=== PATIENT | male | born 1960 | race American Indian/Alaskan Native ===

== ENCOUNTER 2016-11-26 08:14 | Emergency (ER) | payer MEDICAID ==
[2016-11-26 09:03] LABS: Basophils % (Auto) 0.2 % (0.0-1.8); Hematocrit 40.7 % (35.5-45.6); Hemoglobin 13.3 gm/dl (11.8-15.2); Mean Corpuscular HGB Conc 33 % (32-34); Mean Corpuscular Hemoglobin 28 pg (28-32); Mean Corpuscular Volume 86 fl (84-94); Platelet Count 214 K/mm3 (140-440); Red Blood Count 4.72 M/mm3 (3.65-5.03); White Blood Count 7.1 K/mm3 (4.5-11.0)
[2016-11-26 10:06] LABS: Bilirubin,Urine NEG (Negative); Blood,Urine SM (Negative); Ketones,Urine NEG (Negative); Leukocyte Esterase,Urine TR (Negative); Nitrite,Urine NEG (Negative); Protein,Urine <15 mg/dL mg/dL (Negative); Urobilinogen,Urine < 2.0 mg/dL (<2.0)
[2016-11-26 10:12] LABS: WBC,Urine < 1.0 /HPF (0.0-6.0)
[2016-11-26 14:12] LABS: Alanine Aminotransferase 13 units/L (7-56); Albumin 3.7 g/dL (3.9-5); Albumin/Globulin Ratio 1.1 %; Alkaline Phosphatase 85 units/L (35-129); Anion Gap 31 mmol/L; BUN/Creatinine Ratio 15.55; Bilirubin,Total < 0.20 mg/dL (0.1-1.2); Blood Urea Nitrogen 28 mg/dL (9-20); Calcium 9.2 mg/dL (8.4-10.2); Carbon Dioxide 13 mmol/L (22-30); Chloride 97.4 mmol/L (98-107); Glucose 132 mg/dL (75-100); Lipase 17 units/L (13-60); Potassium 4.2 mmol/L (3.6-5.0); Sodium 137 mmol/L (137-145)
[2016-11-26] MEDS ORDERED: MORPHINE IV ONE (17:18)
--- NOTE | 2016-11-26 17:21 | Emergency Department Report ---
ED Abdominal Pain HPI - General Chief Complaint: Abdominal Pain Stated Complaint: ABDOMINAL PAIN Time Seen by Provider: 11/26/16 17:05 Source: patient Mode of arrival: Ambulatory Limitations: No Limitations - History of Present Illness Initial Comments: Patient is a 56-year-old male with a history of Crohn's disease, hypertension, chronic kidney disease who presents to the ER complaining of abdominal pain. Patient reports he has had intermittent right lower quadrant pain for the last 2 weeks waxing and waning in intensity but for the last 2 days it has intensified and is more constant and sharp. Pt reports he went to [facility] and was given steroids and cipro. Otherwise no fevers, chills, THORNE, NVD, CP, SOB, bowel or urinary changes, travel, or sick contacts. Pt reports he takes lactulose daily for his crohns and his loose stools have not changed. Pt's GI: Dr Arias, patient has follow up appt this week - Related Data Home Medications Medication Instructions Recorded Confirmed Last Taken Ciprofloxacin HCl [Ciprofloxacin 500 mg PO QDAY 11/26/16 11/26/16 Unknown TAB] Dicyclomine [Bentyl] 10 mg PO QDAY 11/26/16 11/26/[address] [Depakote ] 500 mg PO QDAY 11/26/16 11/26/16 Unknown Famotidine [Pepcid] 20 mg PO QDAY PRN 11/26/16 11/26/16 Unknown Lactulose [Kristalose] 1 packet PO PRN PRN 11/26/16 11/26/16 Unknown Sucralfate [Carafate] 1 gm PO Q12H 11/26/16 11/26/16 Unknown Previous Rx's Medication Instructions Recorded Last Taken Type Prednisone [predniSONE 5 mg (6-Day 5 mg PO .TAPER #1 tab.ds.pk 02/01/16 Unknown Rx Pack, 21 Tabs)] amLODIPine [Norvasc] 5 mg PO DAILY #90 tab 04/28/16 05/18/16 Rx HYDROcodone/APAP 5-325 [[place] 1 - 2 each PO Q6HR PRN #10 tablet 05/19/16 Unknown Rx 5/325] Allergies Allergy/AdvReac Type Severity Reaction Status Date / Time No Known Allergies Allergy Unverified 07/29/15 11:50 ED Review of Systems ROS: Stated complaint: ABDOMINAL PAIN Other details as noted in HPI Comment: All other systems reviewed and negative ED Past Medical Hx - Past Medical History Previous Medical History?: Yes Hx Hypertension: Yes (FOR 4 MTHS) Hx Heart Attack/AMI: No Hx Congestive Heart Failure: No Hx Diabetes: No Hx Pulmonary Embolism: No Hx Arthritis: Yes (HANDS,KNEES) Hx Asthma: No Hx COPD: No Hx Tuberculosis: No Hx HIV: No Additional medical history: crohns - Surgical History Past Surgical History?: No - Social History Smoking Status: Never Smoker Substance Use Type: Alcohol, Prescribed - Medications Home Medications: Home Medications Medication Instructions Recorded Confirmed Last Taken Type Prednisone [predniSONE 5 mg (6-Day 5 mg PO .TAPER #1 tab.ds.pk 02/01/16 Unknown Rx Pack, 21 Tabs)] amLODIPine [Norvasc] 5 mg PO DAILY #90 tab 04/28/16 11/26/16 05/18/16 Rx HYDROcodone/APAP 5-325 [[place] 1 - 2 each PO Q6HR PRN #10 tablet 05/19/16 Unknown Rx 5/325] Ciprofloxacin HCl [Ciprofloxacin 500 mg PO QDAY 11/26/16 11/26/16 Unknown History TAB] Dicyclomine [Bentyl] 10 mg PO QDAY 11/26/16 11/26/[address] [Depakote Dr] 500 mg PO QDAY 11/26/16 11/26/16 Unknown History Famotidine [Pepcid] 20 mg PO QDAY PRN 11/26/16 11/26/16 Unknown History Lactulose [Kristalose] 1 packet PO PRN PRN 11/26/16 11/26/16 Unknown History Sucralfate [Carafate] 1 gm PO Q12H 11/26/16 11/26/16 Unknown History ED Physical Exam - General Limitations: No Limitations General appearance: alert, in no apparent distress - Head Head exam: Present: atraumatic, normocephalic - Eye Eye exam: Present: normal appearance - ENT ENT exam: Present: mucous membranes moist - Neck Neck exam: Present: normal inspection - Respiratory Respiratory exam: Present: normal lung sounds bilaterally. Absent: respiratory distress, wheezes, rales, rhonchi, stridor - Cardiovascular Cardiovascular Exam: Present: regular rate, normal rhythm, normal heart sounds. Absent: tachycardia, systolic murmur, diastolic murmur, rubs, gallop - GI/Abdominal GI/Abdominal exam: Present: soft, tenderness (RLQ and Periumbilical ), guarding (mild guarding), normal bowel sounds. Absent: distended, rebound, rigid, organomegaly, bruit, pulsatile mass - Rectal Rectal exam: Present: deferred - Extremities Exam Extremities exam: Present: normal inspection - Back Exam Back exam: Present: normal inspection - Neurological Exam Neurological exam: Present: alert, oriented X3 - Psychiatric Psychiatric exam: Present: normal affect, normal mood - Skin Skin exam: Present: warm, dry, intact, normal color. Absent: rash ED Course Vital Signs 11/26/16 11/26/16 11/26/16 08:32 18:47 20:00 Temperature 98 F 97.9 F Pulse Rate 96 H 74 65 Respiratory 20 16 18 Rate Blood Pressure 141/95 Blood Pressure 162/102 151/109 [Right] O2 Sat by Pulse 98 100 96 Oximetry 11/26/16 11/26/16 21:00 22:00 Temperature Pulse Rate 72 73 Respiratory 18 18 Rate Blood Pressure Blood Pressure 161/111 164/114 [Right] O2 Sat by Pulse 96 96 Oximetry - Reevaluation(s) Reevaluation #1: 11/26/16 22:07 Pt still c/o abdominal pain, ordered dilaudid 1mg IVP Reevaluation #2: 11/26/16 23:51 pt reports improvement, results discussed with the patient. He will continue his prednisone dose pack, cipro, and lactulose and follow up with his GI doctor this week ED Medical Decision Making - Lab Data Result diagrams: 11/26/16 08:42 11/26/16 08:42 - Radiology Data Radiology results: report reviewed, image reviewed CT a/p: moderate stool, otherwise no acute intra-abdominal pathology Critical care attestation.: If time is entered above; I have spent that time in minutes in the direct care of this critically ill patient, excluding procedure time. ED Disposition Clinical Impression: Crohns disease, Abdominal pain Disposition: DISCHARGED TO HOME OR SELFCARE Is pt being admited?: No Condition: Stable Instructions: Abdominal Pain (ED), Crohn Disease (ED) Additional Instructions: Please continue all your medications and follow up with your stomach doctor as planned Referrals: PRIMARY CARE, [Primary Care Provider] - 3-5 Days
[2016-11-26] MEDS ORDERED: NACL 0.9% 1000 ML 1,000 ML IV ONE (17:37)
[2016-11-26] MEDS ORDERED: ZOFRAN ONE (18:29)
[2016-11-26] MEDS ORDERED: ZOFRAN IV ONE (18:44)
[2016-11-26] MEDS ORDERED: DILAUDID ONE (21:56)
[2016-11-26] MEDS ORDERED: DILAUDID IV ONE (21:58)
--- NOTE | 2016-11-26 22:39 | Cat Scan Report ---
FINAL REPORT EXAM: CT ABDOMEN PELVIS WO CON HISTORY: RLQ abd pain . Prior history of Crohn's disease. TECHNIQUE: Standard unenhanced CT of the abdomen and pelvis. Coronal and sagittal reconstruction was also performed. Contrast: Oral contrast given PRIORS: CT a/P 04/28/2016 FINDINGS: Within the abdomen, the liver, spleen, pancreas, gallbladder, adrenal glands, and kidneys are unremarkable. No evidence for retroperitoneal or pelvic lymphadenopathy is seen. The bowel loops have normal caliber. No soft tissue mass, fluid collection, inflammatory change, or free air is seen within the abdomen or pelvis. The appendix is not visualized. Moderate stool is present throughout the entire colon. Within the pelvis, the bladder is unremarkable. The prostate is normal. No evidence for mass or lymphadenopathy is seen in the pelvis. Images through the upper abdomen include the lung bases which demonstrates mild new linear scarring in the anterior lateral right middle lobe. Bony structures show no focal abnormalities and are intact. IMPRESSION: 1. no acute intra-abdominal process noted. Moderate stool is present throughout the entire colon. 2. Mild new linear scarring in the right middle lobe.
[2016-11-27 00:52] VITALS: BP 155/107
== END 2016-11-27 00:30 | disposition home or self-care (01) ==
LOC: ED 08:14
DX: K50.90 Crohn's disease, unspecified, without complications (principal); R10.31 Right lower quadrant pain; I10 Essential (primary) hypertension; M13.842 Other specified arthritis, left hand; M13.841 Other specified arthritis, right hand; M13.862 Other specified arthritis, left knee; M13.861 Other specified arthritis, right knee
CPT/HCPCS: 36415; 74176; 80053; 81001; 83690; 85025; 96361; 96374; 96375; 99284; J1170; J2270; J2405; J2930; J7030

== ENCOUNTER 2017-11-21 19:33 | Emergency (ER) | payer MEDICAID ==
[2017-11-21 21:49] LABS: Basophils % (Auto) 0.6 % (0.0-1.8); Eosinophils # (Auto) 0.1 K/mm3 (0.0-0.4); Eosinophils % (Auto) 1.9 % (0.0-4.3); Hematocrit 43.2 % (35.5-45.6); Hemoglobin 14.2 gm/dl (11.8-15.2); Lymphocytes # (Auto) 1.4 K/mm3 (1.2-5.4); Lymphocytes % (Auto) 19.6 % (13.4-35.0); Mean Corpuscular HGB Conc 33 % (32-34); Mean Corpuscular Hemoglobin 28 pg (28-32); Mean Corpuscular Volume 87 fl (84-94); Monocytes # (Auto) 0.6 K/mm3 (0.0-0.8); Monocytes % (Auto) 8.8 % (0.0-7.3); Platelet Count 200 K/mm3 (140-440); Red Blood Count 4.98 M/mm3 (3.65-5.03); Red Cell Distribution Width 16.2 % (13.2-15.2)
[2017-11-21 21:56] LABS: Albumin 4.2 g/dL (3.9-5); Calcium 9.2 mg/dL (8.4-10.2)
[2017-11-21 22:36] LABS: Bilirubin,Urine NEG (Negative); Blood,Urine NEG (Negative); Color,Urine Yellow (Yellow); Urobilinogen,Urine < 2.0 mg/dL (<2.0)
[2017-11-21] MEDS ORDERED: ZOFRAN IV ONE (23:20)
[2017-11-21] MEDS ORDERED: MORPHINE IV ONE (23:20)
--- NOTE | 2017-11-21 23:22 | Emergency Department Report ---
HPI - General Chief Complaint: Abdominal Pain Time Seen by Provider: 11/21/17 23:14 - HPI HPI: 57-year-old male presents to the emergency department with complaint of a three-day history of left-sided abdominal pain. Over this three- day period he has had some nausea with 3 episodes of vomiting. He denies any significant rectal or GI bleeding. He has not taken anything for his symptoms prior presentation. He has a history of Crohn's disease and feels that this might be a flareup. No recent travel or sick contacts at home. He is not currently have a primary care physician but says that he does have a "Crohn's doctor", Dr Carter. He also has a history of osteoarthritis and hypertension. No current known aggravating or alleviating factors. The abdominal pain is sharp and currently 8 out of 10 in intensity. ED Past Medical Hx - Past Medical History Previous Medical History?: Yes Hx Hypertension: Yes (FOR 4 MTHS) Hx Arthritis: Yes (HANDS,KNEES) Additional medical history: crohns - Surgical History Past Surgical History?: No - Social History Smoking Status: Never Smoker Substance Use Type: Alcohol - Medications Home Medications: Home Medications Medication Instructions Recorded Confirmed Last Taken Type amLODIPine [Norvasc] 5 mg PO DAILY #90 tab 04/28/16 04/27/17 05/18/16 Rx HYDROcodone/APAP 5-325 [[place] 1 - 2 each PO Q6HR PRN #10 tablet 05/19/16 Unknown Rx 5/325] Dicyclomine [Bentyl] 10 mg PO QDAY 11/26/16 04/27/17 04/27/17 History Divalproex [Anastasia Clinton] 500 mg PO QDAY 11/26/16 04/27/17 04/27/17 History Famotidine [Pepcid] 20 mg PO QDAY PRN 11/26/16 04/27/17 Unknown History Sucralfate [Carafate] 1 gm PO Q12H 11/26/16 04/27/17 04/27/17 History Ciprofloxacin HCl [Ciprofloxacin 500 mg PO Q12H #14 tab 04/27/17 Unknown Rx TAB] traMADol [Ultram] 50 mg PO Q6HR PRN #14 tablet 04/27/17 Unknown Rx ED Review of Systems ROS: Stated complaint: ABD PAIN Other details as noted in HPI Comment: All other systems reviewed and negative Constitutional: denies: chills, fever Eyes: denies: eye pain, eye discharge, vision change ENT: denies: ear pain, throat pain Respiratory: denies: cough, shortness of breath, wheezing Cardiovascular: denies: chest pain, palpitations Gastrointestinal: abdominal pain, nausea, vomiting Genitourinary: denies: urgency, dysuria Musculoskeletal: denies: back pain, joint swelling, arthralgia Skin: denies: rash, lesions Neurological: denies: headache, weakness, paresthesias Physical Exam - Physical Exam Vital Signs: Vital Signs 11/21/17 11/21/17 20:47 23:17 Temperature 98.9 F 98.0 F Pulse Rate 99 H 92 H Respiratory 20 18 Rate Blood Pressure 103/73 Blood Pressure 130/77 [Left] O2 Sat by Pulse 94 97 Oximetry Physical Exam: GENERAL: The patient is well-developed well-nourished. HENT: Normocephalic. Atraumatic. Patient has moist mucous membranes. EYES: Extraocular motions are intact. Pupils equal reactive to light bilaterally. NECK: Supple. Trachea is midline. CHEST/LUNGS: Clear to auscultation. There is no respiratory distress noted. HEART/CARDIOVASCULAR: Regular. There is no tachycardia. There is no murmur. ABDOMEN: Abdomen is soft. There is left-sided abdominal tenderness to palpation but no guarding. Patient has normal bowel sounds. There is no abdominal distention. SKIN: There is no rash. There is no edema. There is no diaphoresis. NEURO: The patient is awake, alert, and oriented. The patient is cooperative. The patient has no focal neurologic deficits. The patient has normal speech. MUSCULOSKELETAL: There is no tenderness or deformity. There is no limitation range of motion. There is no evidence of acute injury. ED Course Vital Signs 11/21/17 11/21/17 20:47 23:17 Temperature 98.9 F 98.0 F Pulse Rate 99 H 92 H Respiratory 20 18 Rate Blood Pressure 103/73 Blood Pressure 130/77 [Left] O2 Sat by Pulse 94 97 Oximetry ED Medical Decision Making - Lab Data Result diagrams: 11/21/17 21:19 11/21/17 21:19 - Radiology Data Radiology results: report reviewed CT of the abdomen and pelvis without contrast shows no intestinal obstruction or free air. No gross evidence of enteritis. Tiny hiatal hernia. Scattered small faint patchy groundglass opacities in both lung bases, nonspecific most likely inflammatory. - Medical Decision Making Patient presents with left-sided abdominal pain going on for a few days that he feels is an exacerbation of his Crohn's disease. Labs show very mild hypokalemia and some renal deficiency that appears consistent with previous visits but otherwise no leukocytosis or abnormal belly labs. CT of the abdomen and pelvis does not show any acute process or etiology of his symptoms. He was given a few doses of pain medication and began feeling relief. Vital signs stable throughout his ED course including being afebrile. The patient says that he has a population geneticist for follow-up and is asking for discharge home. He was encouraged to return to the emergency Department with any worsening of his symptoms or any acute distress. It should be noted that the final vital sign for pulse ox place for this patient is inaccurate. I saw the patient just upon discharge and he was awake, alert, without any signs of respiratory distress. It was most likely secondary to a bad connection with the pulse oximetry monitor. The patient had no complaints of shortness of breath throughout his ED stay. - Differential Diagnosis gastroenteritis, Crohn's, diverticulitis, bowel obstruction Critical Care Time: No Critical care attestation.: If time is entered above; I have spent that time in minutes in the direct care of this critically ill patient, excluding procedure time. ED Disposition Clinical Impression: Crohns disease Abdominal pain Qualifiers: Abdominal location: unspecified location Qualified Code(s): R10.9 - Unspecified abdominal pain CKD (chronic kidney disease) Qualifiers: Chronic kidney disease stage: unspecified stage Qualified Code(s): N18.9 - Chronic kidney disease, unspecified Disposition: - TO HOME OR SELFCARE Is pt being admited?: No Condition: Stable Instructions: Chronic Kidney Disease (ED), Abdominal Pain (ED) Additional Instructions: Please follow-up with your population geneticist/Crohn's disease doctor tomorrow if possible. I am also giving you a referral for a local gettering filament machine operator, Dr. Rooney, to follow-up regarding your decreased kidney function. Return to the emergency Department with any worsening of your symptoms or any acute distress. Referrals: BRI ROONEY MD [Staff Physician] - 3-5 Days PRIMARY CARE, [Primary Care Provider] - OG Time of Disposition: 01:50
[2017-11-22] MEDS ORDERED: MORPHINE IV ONE (01:06)
[2017-11-22 02:08] VITALS: BP 131/87
--- NOTE | 2017-11-25 14:22 | Cat Scan Report ---
FINAL REPORT EXAM: CT ABDOMEN PELVIS WO CONTRAST HISTORY: Left-sided abdominal pain, hx of Crohn's disease. TECHNIQUE: Unenhanced axial CT images of the abdomen and pelvis were obtained, with sagittal and coronal reformatted images. Comparison is made with prior study 04/27/2017. FINDINGS: The unenhanced liver, biliary tree, gallbladder, pancreas, spleen, and adrenal glands are unremarkable. The unenhanced kidneys demonstrate no discrete renal lesions. There are no radiopaque urinary tract calculi or evidence of urinary tract obstruction. Evaluation of the bowel is limited due to lack of oral contrast. There is a tiny hiatal hernia. The small-bowel loops are largely collapsed, limiting evaluation for wall thickening. There is no intestinal obstruction or free air. No inflammatory changes are seen adjacent to the small bowel or colon. Note that the descending and sigmoid colon also collapsed, not well evaluated. The abdominal aorta is normal in caliber. There is no pathologic abdominal or pelvic lymphadenopathy. There is no free or loculated fluid collection. The prostate gland is normal in size. The unopacified urinary bladder is unremarkable. Minimal spondylotic changes are seen in the spine. There are several scattered faint patchy ground-glass opacities in the inferior right middle lobe, lingula, and anterior left lower lobe, nonspecific but most likely minimal inflammatory or infectious small airways disease. IMPRESSION: 1. No intestinal obstruction or free air. No gross evidence of enteritis. 2. Tiny hiatal hernia. 3. Scattered small faint patchy ground-glass opacities in both lung bases, nonspecific most likely inflammatory or infectious small airways disease.
== END 2017-11-22 02:08 | disposition home or self-care (01) ==
LOC: ED 19:33
DX: K50.90 Crohn's disease, unspecified, without complications (principal); I12.9 Hypertensive chronic kidney disease with stage 1 through stage 4 chronic kidney disease, or unspecified chronic kidney disease; N18.9 Chronic kidney disease, unspecified; M17.0 Bilateral primary osteoarthritis of knee; M19.042 Primary osteoarthritis, left hand; M19.041 Primary osteoarthritis, right hand; Z79.899 Other long term (current) drug therapy
CPT/HCPCS: 36415; 74176; 80053; 81001; 82140; 85025; 96374; 96375; 96376; 99284; J2270; J2405

== ENCOUNTER 2018-08-02 19:15 | Emergency (ER) | payer MEDICAID ==
[2018-08-02] MEDS ORDERED: ZOFRAN ONE (19:20)
[2018-08-02] MEDS ORDERED: ZOFRAN IV ONE (20:22)
[2018-08-02] MEDS ORDERED: NACL 0.9% 1000 ML 1,000 ML IV ONE (20:22)
[2018-08-02] MEDS ORDERED: MORPHINE IV ONE (20:22)
--- NOTE | 2018-08-02 20:26 | Emergency Department Report ---
ED Abdominal Pain HPI - General Chief Complaint: Abdominal Pain Stated Complaint: ABDOMINAL PAIN/CROHN DZ Time Seen by Provider: 08/02/18 20:11 Source: EMS Mode of arrival: Stretcher Limitations: No Limitations - History of Present Illness Initial Comments: 58-year-old male with history of Crohn's disease presents to ED with complaint of his usual left lower quadrant pain. Patient reports onset of pain 2 days ago. Patient states he had coffee-ground emesis at that time, however this is since resolved. Patient reported diarrhea, however nonbloody. Patient denies fever. Also reports bruising to the right upper arm from a fall at home a few days ago. Patient not on any blood thinners, states he did not hit his head. Patient has good range of motion of the right arm. MD Complaint: abdominal pain -: days(s) (2) Location: LLQ Radiation: none Migration to: no migration Severity: moderate Severity scale (0 -10): 0 Quality: cramping, sharp Consistency: intermittent Improves With: nothing Worsens With: nothing Associated Symptoms: nausea, vomiting, diarrhea. denies: fever, chills, hematochezia, melena - Related Data Home Medications Medication Instructions Recorded Confirmed Last Taken Dicyclomine [Bentyl] 10 mg PO QDAY 11/26/16 04/27/17 04/27/17 Divalproex [Anastasia Clinton] 500 mg PO QDAY 11/26/16 04/27/17 04/27/17 Famotidine [Pepcid] 20 mg PO QDAY PRN 11/26/16 04/27/17 Unknown Sucralfate [Carafate] 1 gm PO Q12H 11/26/16 04/27/17 04/27/17 Previous Rx's Medication Instructions Recorded Last Taken Type amLODIPine [Norvasc] 5 mg PO DAILY #90 tab 04/28/16 05/18/16 Rx HYDROcodone/APAP 5-325 [[place] 1 - 2 each PO Q6HR PRN #10 tablet 05/19/16 Unknown Rx 5/325] Ciprofloxacin HCl [Ciprofloxacin 500 mg PO Q12H #14 tab 04/27/17 Unknown Rx TAB] traMADol [Ultram] 50 mg PO Q6HR PRN #14 tablet 04/27/17 Unknown Rx Dicyclomine [Bentyl] 20 mg PO QID PRN #20 tablet 05/03/18 Unknown Rx Dicyclomine [Bentyl] 20 mg PO QID PRN #20 tablet 08/02/18 Unknown Rx Ondansetron [Zofran Odt] 4 mg PO Q8HR PRN #20 tab.rapdis 08/02/18 Unknown Rx Allergies Allergy/AdvReac Type Severity Reaction Status Date / Time No Known Allergies Allergy Verified 04/27/17 13:51 ED Review of Systems ROS: Stated complaint: ABDOMINAL PAIN/CROHN DZ Other details as noted in HPI Comment: All other systems reviewed and negative Constitutional: denies: chills, fever Gastrointestinal: abdominal pain, nausea, vomiting, diarrhea. denies: constipation, melena, hematochezia ED Past Medical Hx - Past Medical History Previous Medical History?: Yes Hx Hypertension: Yes (FOR 4 MTHS) Hx Renal Disease: Yes Hx Arthritis: Yes (HANDS,KNEES) Additional medical history: crohns - Surgical History Past Surgical History?: No - Social History Smoking Status: Never Smoker Substance Use Type: None, Alcohol - Medications Home Medications: Home Medications Medication Instructions Recorded Confirmed Last Taken Type amLODIPine [Norvasc] 5 mg PO DAILY #90 tab 04/28/16 04/27/17 05/18/16 Rx HYDROcodone/APAP 5-325 [[place] 1 - 2 each PO Q6HR PRN #10 tablet 05/19/16 04/27/17 Unknown Rx 5/325] Dicyclomine [Bentyl] 10 mg PO QDAY 11/26/16 04/27/17 04/27/17 History Divalproex [Anastasia Clinton] 500 mg PO QDAY 11/26/16 04/27/17 04/27/17 History Famotidine [Pepcid] 20 mg PO QDAY PRN 11/26/16 04/27/17 Unknown History Sucralfate [Carafate] 1 gm PO Q12H 11/26/16 04/27/17 04/27/17 History Ciprofloxacin HCl [Ciprofloxacin 500 mg PO Q12H #14 tab 04/27/17 Unknown Rx TAB] traMADol [Ultram] 50 mg PO Q6HR PRN #14 tablet 04/27/17 Unknown Rx Dicyclomine [Bentyl] 20 mg PO QID PRN #20 tablet 05/03/18 Unknown Rx Dicyclomine [Bentyl] 20 mg PO QID PRN #20 tablet 08/02/18 Unknown Rx Ondansetron [Zofran Odt] 4 mg PO Q8HR PRN #20 tab.rapdis 08/02/18 Unknown Rx ED Physical Exam - General Limitations: No Limitations General appearance: alert, in no apparent distress - Head Head exam: Present: atraumatic, normocephalic - Eye Eye exam: Present: normal appearance - ENT ENT exam: Present: mucous membranes moist - Neck Neck exam: Present: normal inspection - Respiratory Respiratory exam: Present: normal lung sounds bilaterally. Absent: respiratory distress - Cardiovascular Cardiovascular Exam: Present: regular rate, tachycardia (mild) - GI/Abdominal GI/Abdominal exam: Present: soft, tenderness (mild LLQ). Absent: distended - Extremities Exam Extremities exam: Present: other (ecchymosis present to lateral right upper arm; no deformity noted; ROM nml) - Neurological Exam Neurological exam: Present: alert, oriented X3 - Psychiatric Psychiatric exam: Present: normal affect, normal mood - Skin Skin exam: Present: warm, dry, intact, normal color, ecchymosis (to RUE) ED Course Vital Signs 08/02/18 08/02/18 08/02/18 19:18 19:23 19:30 Temperature Pulse Rate 101 H Respiratory Rate Blood Pressure 117/65 117/65 Blood Pressure [Left] O2 Sat by Pulse 96 96 97 Oximetry 08/02/18 08/02/18 08/02/18 19:32 19:46 20:00 Temperature 98.2 F Pulse Rate 104 H 96 H Respiratory 16 19 Rate Blood Pressure 117/65 104/58 Blood Pressure 117/65 [Left] O2 Sat by Pulse 95 95 95 Oximetry 08/02/18 08/02/18 08/02/18 20:15 20:16 20:30 Temperature Pulse Rate 102 H 100 H Respiratory 18 17 17 Rate Blood Pressure 117/65 103/71 Blood Pressure [Left] O2 Sat by Pulse 93 94 Oximetry 08/02/18 08/02/18 20:46 21:00 Temperature Pulse Rate 93 H 97 H Respiratory 13 26 H Rate Blood Pressure 103/71 108/75 Blood Pressure [Left] O2 Sat by Pulse 96 93 Oximetry ED Medical Decision Making - Lab Data Result diagrams: 08/02/18 20:29 08/02/18 20:29 - Medical Decision Making Patient feeling much better at this time following IV fluids, morphine, zofran. Has history of chronic renal insufficiency. Creatinine currently 1.8 which is the patient's baseline. Remainder of labs unremarkable. Normal vitals. Mild tachycardia has improved. Patient advised follow-up with GI on an outpatient basis. Return precautions given. - Differential Diagnosis Crohn's Critical care attestation.: If time is entered above; I have spent that time in minutes in the direct care of this critically ill patient, excluding procedure time. ED Disposition Clinical Impression: Abdominal pain Disposition: DC-01 TO HOME OR SELFCARE Is pt being admited?: No Condition: Stable Prescriptions: Dicyclomine [Bentyl] 20 mg PO QID PRN #20 tablet PRN Reason: abdominal pain Ondansetron [Zofran Odt] 4 mg PO Q8HR PRN #20 tab.rapdis PRN Reason: Vomiting Referrals: PRIMARY CARE, [Referring] - 3-5 Days Time of Disposition: 21:42
[2018-08-02 20:41] LABS: Basophils % (Auto) 0.6 % (0.0-1.8); Eosinophils # (Auto) 0.2 K/mm3 (0.0-0.4); Eosinophils % (Auto) 2.6 % (0.0-4.3); Hematocrit 40.2 % (35.5-45.6); Hemoglobin 13.2 gm/dl (11.8-15.2); Lymphocytes # (Auto) 0.9 K/mm3 (1.2-5.4); Lymphocytes % (Auto) 11.9 % (13.4-35.0); Mean Corpuscular HGB Conc 33 % (32-34); Mean Corpuscular Volume 86 fl (84-94); Monocytes # (Auto) 0.8 K/mm3 (0.0-0.8); Monocytes % (Auto) 9.8 % (0.0-7.3); Platelet Count 190 K/mm3 (140-440); Red Blood Count 4.69 M/mm3 (3.65-5.03); Red Cell Distribution Width 14.9 % (13.2-15.2)
[2018-08-02 21:29] LABS: Albumin 3.8 g/dL (3.9-5)
[2018-08-02 22:06] VITALS: BP 119/77
== END 2018-08-02 22:06 | disposition home or self-care (01) ==
LOC: ED 19:15
DX: R10.32 Left lower quadrant pain (principal); R11.2 Nausea with vomiting, unspecified; R19.7 Diarrhea, unspecified; M79.601 Pain in right arm; I10 Essential (primary) hypertension; K50.90 Crohn's disease, unspecified, without complications; M13.862 Other specified arthritis, left knee; M13.861 Other specified arthritis, right knee; M13.88 Other specified arthritis, other site; Z79.899 Other long term (current) drug therapy
CPT/HCPCS: 36415; 80053; 85025; 93005; 93010; 96361; 96374; 96375; 99284; J2270; J2405; J7030

== ENCOUNTER 2019-02-13 23:41 | Emergency (ER) | payer MEDICAID ==
[2019-02-13] MEDS ORDERED: NACL 0.9% 1000 ML 1,000 ML IV ONE (23:55)
[2019-02-13] MEDS ORDERED: ZOFRAN IV ONE (23:55)
[2019-02-13] MEDS ORDERED: MORPHINE IV ONE (23:55)
--- NOTE | 2019-02-13 23:59 | Emergency Department Report ---
ED Abdominal Pain HPI - General Stated Complaint: ABD PAIN Time Seen by Provider: 02/13/19 23:54 - History of Present Illness Initial Comments: Mr. Trejo is a 58-year-old male with history of hypertension, Crohn's disease, CKD who presents with 9 hours of acute abdominal pain which began at 2 PM this afternoon. Left lower quadrant pain. 2 episodes of vomiting. No diarrhea. No hematemesis. No fever. He is followed by GI specialist at [facility]. He does not have a PCP. Pain is moderately severe. He arrived per EMS. Pain does not change with palpation or movement. Sharp achy quality. No radiation. MD Complaint: abdominal pain -: Gradual, hour(s) (9) Location: [facility] Radiation: none Migration to: no migration Severity: severe Severity scale (0 -10): 8 Quality: aching, sharp Consistency: constant Improves With: nothing Worsens With: nothing Associated Symptoms: nausea, vomiting - Related Data Home Medications Medication Instructions Recorded Confirmed Last Taken Dicyclomine [Bentyl] 10 mg PO QDAY 11/26/16 04/27/17 04/27/17 Divalproex [Anastasia Clinton] 500 mg PO QDAY 11/26/16 04/27/17 04/27/17 Famotidine [Pepcid] 20 mg PO QDAY PRN 11/26/16 04/27/17 Unknown Sucralfate [Carafate] 1 gm PO Q12H 11/26/16 04/27/17 04/27/17 Previous Rx's Medication Instructions Recorded Last Taken Type amLODIPine [Norvasc] 5 mg PO DAILY #90 tab 04/28/16 05/18/16 Rx HYDROcodone/APAP 5-325 [[place] 1 - 2 each PO Q6HR PRN #10 tablet 05/19/16 Unknown Rx 5/325] Ciprofloxacin HCl [Ciprofloxacin 500 mg PO Q12H #14 tab 04/27/17 Unknown Rx TAB] traMADol [Ultram] 50 mg PO Q6HR PRN #14 tablet 04/27/17 Unknown Rx Dicyclomine [Bentyl] 20 mg PO QID PRN #20 tablet 05/03/18 Unknown Rx Dicyclomine [Bentyl] 20 mg PO QID PRN #20 tablet 08/02/18 Unknown Rx Ondansetron [Zofran Odt] 4 mg PO Q8HR PRN #20 tab.rapdis 08/02/18 Unknown Rx Allergies Allergy/AdvReac Type Severity Reaction Status Date / Time No Known Allergies Allergy Verified 04/27/17 13:51 ED Review of Systems ROS: Stated complaint: ABD PAIN Other details as noted in HPI Comment: All other systems reviewed and negative Constitutional: denies: fever, malaise Cardiovascular: denies: chest pain Gastrointestinal: abdominal pain, nausea, vomiting ED Past Medical Hx - Past Medical History Hx Hypertension: Yes (FOR 4 MTHS) Hx Renal Disease: Yes Hx Arthritis: Yes (HANDS,KNEES) Additional medical history: crohns - Surgical History Past Surgical History?: No - Social History Smoking Status: Never Smoker Substance Use Type: Alcohol Other 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 History: 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, , 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 - Medications Home Medications: Home Medications Medication Instructions Recorded Confirmed Last Taken Type amLODIPine [Norvasc] 5 mg PO DAILY #90 tab 04/28/16 04/27/17 05/18/16 Rx HYDROcodone/APAP 5-325 [[place] 1 - 2 each PO Q6HR PRN #10 tablet 05/19/16 Unknown Rx 5/325] Dicyclomine [Bentyl] 10 mg PO QDAY 11/26/16 04/27/17 04/27/17 History Divalproex [Anastasia Clinton] 500 mg PO QDAY 11/26/16 04/27/17 04/27/17 History Famotidine [Pepcid] 20 mg PO QDAY PRN 11/26/16 04/27/17 Unknown History Sucralfate [Carafate] 1 gm PO Q12H 11/26/16 04/27/17 04/27/17 History Ciprofloxacin HCl [Ciprofloxacin 500 mg PO Q12H #14 tab 04/27/17 Unknown Rx TAB] traMADol [Ultram] 50 mg PO Q6HR PRN #14 tablet 04/27/17 Unknown Rx Dicyclomine [Bentyl] 20 mg PO QID PRN #20 tablet 05/03/18 Unknown Rx Dicyclomine [Bentyl] 20 mg PO QID PRN #20 tablet 08/02/18 Unknown Rx Ondansetron [Zofran Odt] 4 mg PO Q8HR PRN #20 tab.rapdis 08/02/18 Unknown Rx ED Physical Exam - General General appearance: alert, in no apparent distress - Head Head exam: Present: atraumatic, normocephalic - Eye Eye exam: Present: normal appearance - ENT ENT exam: Present: mucous membranes moist - Neck Neck exam: Present: normal inspection, full ROM - Respiratory Respiratory exam: Present: normal lung sounds bilaterally. Absent: respiratory distress, rales, rhonchi - Cardiovascular Cardiovascular Exam: Present: regular rate, normal rhythm, normal heart sounds. Absent: systolic murmur, diastolic murmur, rubs, gallop - GI/Abdominal GI/Abdominal exam: Present: soft, normal bowel sounds. Absent: distended, tende rness, guarding, rebound - Rectal Rectal exam: Present: deferred - Extremities Exam Extremities exam: Present: normal inspection - Back Exam Back exam: Present: normal inspection - Neurological Exam Neurological exam: Present: alert, oriented X3 - Psychiatric Psychiatric exam: Present: normal affect, normal mood - Skin Skin exam: Present: warm, dry, intact, normal color. Absent: rash ED Course Vital Signs 02/14/19 02/14/19 02/14/19 00:13 00:15 00:23 Temperature 98.2 F Pulse Rate 92 H 92 H 86 Respiratory 16 17 19 Rate Blood Pressure 100/71 100/71 O2 Sat by Pulse 97 95 97 Oximetry 02/14/19 02/14/19 02/14/19 00:31 00:45 01:00 Temperature Pulse Rate 77 78 74 Respiratory 17 18 18 Rate Blood Pressure 104/77 104/77 104/55 O2 Sat by Pulse 96 93 91 Oximetry 02/14/19 01:04 Temperature Pulse Rate Respiratory 18 Rate Blood Pressure O2 Sat by Pulse Oximetry ED Medical Decision Making - Lab Data Result diagrams: 02/14/19 00:27 02/14/19 00:27 Laboratory Results - last 24 hr 02/14/19 02/14/19 02/14/19 00:27 00:27 00:27 WBC 6.8 RBC 4.55 Hgb 12.7 Hct 38.7 MCV 85 MCH 28 MCHC 33 RDW 15.4 H Plt Count 176 Lymph % (Auto) 19.2 Dickey % (Auto) 11.2 H Eos % (Auto) 3.9 Baso % (Auto) 1.1 Lymph # 1.3 Dickey # 0.8 Eos # 0.3 Baso # 0.1 Seg Neutrophils % 64.6 Seg Neutrophils # 4.4 Sodium 136 L Potassium 3.4 L Chloride 99.1 Carbon Dioxide 18 L Anion Gap 22 BUN 27 H Creatinine 2.2 H Estimated GFR 37 BUN/Creatinine Ratio 12 Glucose 108 H Calcium 9.0 Total Bilirubin 0.20 Direct Bilirubin < 0.2 Indirect Bilirubin 0.0 AST 22 ALT 13 Alkaline Phosphatase 95 Total Protein 7.1 Albumin 4.1 Albumin/Globulin Ratio 1.4 Lipase 23 Plasma/Serum Alcohol 0.18 H - Medical Decision Making Mr. Trejo presents with left lower quadrant pain and acute alcohol ingestion. He was able to give a full history. No evidence of peritonitis. He appeared well and comfortable. I do not suspect acute emergent condition. He is dis charged home. He is clinically sober. I review labs which revealed normal WBC, CKD, blood alcohol level 0.18 Critical care attestation.: If time is entered above; I have spent that time in minutes in the direct care of this critically ill patient, excluding procedure time. ED Disposition Clinical Impression: Abdominal pain, CKD (chronic kidney disease), Alcohol ingestion Disposition: DC-01 TO HOME OR SELFCARE Is pt being admited?: No Does the pt Need Aspirin: No Condition: Stable Instructions: Acute Abdominal Pain (ED) Referrals: CHRISTINA BARNHART MD [Primary Care Provider] - 3-5 Days
[2019-02-14 00:38] LABS: Basophils # (Auto) 0.1 K/mm3 (0.0-0.1); Basophils % (Auto) 1.1 % (0.0-1.8); Eosinophils # (Auto) 0.3 K/mm3 (0.0-0.4); Eosinophils % (Auto) 3.9 % (0.0-4.3); Hematocrit 38.7 % (35.5-45.6); Hemoglobin 12.7 gm/dl (11.8-15.2); Lymphocytes # (Auto) 1.3 K/mm3 (1.2-5.4); Lymphocytes % (Auto) 19.2 % (13.4-35.0); Mean Corpuscular HGB Conc 33 % (32-34); Mean Corpuscular Volume 85 fl (84-94); Monocytes # (Auto) 0.8 K/mm3 (0.0-0.8); Monocytes % (Auto) 11.2 % (0.0-7.3); Platelet Count 176 K/mm3 (140-440); Red Blood Count 4.55 M/mm3 (3.65-5.03); Red Cell Distribution Width 15.4 % (13.2-15.2)
[2019-02-14 00:53] LABS: Alanine Aminotransferase 13 units/L (7-56); Albumin 4.1 g/dL (3.9-5); BUN/Creatinine Ratio 12; Blood Urea Nitrogen 27 mg/dL (9-20); Hemolysis Index 3
[2019-02-14 00:54] LABS: Bilirubin,Direct < 0.2 mg/dL (0-0.2)
[2019-02-14 01:05] VITALS: BP 104/55
== END 2019-02-14 03:03 | disposition home or self-care (01) ==
LOC: ED 23:41
DX: R10.32 Left lower quadrant pain (principal); R11.2 Nausea with vomiting, unspecified; I12.9 Hypertensive chronic kidney disease with stage 1 through stage 4 chronic kidney disease, or unspecified chronic kidney disease; N18.9 Chronic kidney disease, unspecified; M19.90 Unspecified osteoarthritis, unspecified site; Z79.899 Other long term (current) drug therapy
CPT/HCPCS: 36415; 80048; 80076; 83690; 85025; 96361; 96374; 96375; 99284; J2270; J2405; J7030; 80320; G0480

== ENCOUNTER 2019-04-18 15:01 | Emergency (ER) | payer MEDICAID ==
[2019-04-18] MEDS ORDERED: SODIUM CHLORIDE 0.9% 1000 ML 1,000 ML IV ONE (15:57)
[2019-04-18] MEDS ORDERED: methylPREDNISolone Sod Succinate 125 MG/2 ML INJ IV ONE (15:57)
[2019-04-18] MEDS ORDERED: ONDANSETRON 4 MG/2 ML INJ IV ONE (15:57)
[2019-04-18] MEDS ORDERED: KETOROLAC 30 MG/1 ML INJ IV ONE (15:57)
--- NOTE | 2019-04-18 17:29 | Cat Scan Report ---
CT OF THE ABDOMEN AND PELVIS WITHOUT CONTRAST INDICATION / CLINICAL INFORMATION: Abdominal pain. History of Crohn's disease. TECHNIQUE: All CT scans at this location are performed using CT dose reduction for ALARA by means of automated e xposure control. COMPARISON: 11/21/2017. FINDINGS: ABDOMEN: There is a large amount of food in the stomach. The liver, spleen, gallbladder, bile ducts, pancreas, adrenal glands, kidneys and bowel demonstrate no significant abnormality. No adenopathy is seen. The lung bases are clear. PELVIS: The distal ureters, urinary bladder and prostate gland are normal. A normal appendix is prese nt and there is no evidence of diverticulitis. I see no evidence of small bowel wall thickening. No a bnormal mass or fluid collection is seen. I do not identify a hernia. There is mild spondylosis. IMPRESSION: No acute abnormality. Signer Name: Bridger Calderon MD Signed: 04/18/2019 5:24 PM Workstation Name: [id number]
--- NOTE | 2019-04-18 17:39 | XRay Report ---
ACUTE ABDOMINAL SERIES INDICATION / CLINICAL INFORMATION: Abdominal pain. COMPARISON: 05/03/2018. FINDINGS: Upright and supine views of the abdomen demonstrate a normal bowel gas pattern without evidence of ob struction, free air or mass effect. No abnormal calcification is seen. The accompanying chest radiograph reveals a normal heart size and minimal left basilar subsegmental a telectasis. IMPRESSION: No acute intra-abdominal disease is identified. Signer Name: Bridger Calderon MD Signed: 04/18/2019 5:34 PM Workstation Name: [id number]
[2019-04-18 18:35] LABS: Basophils # (Auto) 0.1 K/mm3 (0.0-0.1); Basophils % (Auto) 0.6 % (0.0-1.8); Eosinophils # (Auto) 0.1 K/mm3 (0.0-0.4); Eosinophils % (Auto) 0.5 % (0.0-4.3); Hematocrit 40.1 % (35.5-45.6); Hemoglobin 13.5 gm/dl (11.8-15.2); Lymphocytes # (Auto) 0.7 K/mm3 (1.2-5.4); Lymphocytes % (Auto) 7.2 % (13.4-35.0); Mean Corpuscular HGB Conc 34 % (32-34); Mean Corpuscular Volume 84 fl (84-94); Monocytes # (Auto) 0.3 K/mm3 (0.0-0.8); Monocytes % (Auto) 2.9 % (0.0-7.3); Platelet Count 214 K/mm3 (140-440); Red Cell Distribution Width 16.1 % (13.2-15.2)
[2019-04-18 18:50] LABS: INR 0.95 (0.87-1.13)
[2019-04-18 18:51] LABS: Partial Thromboplastin Time 24.1 Sec. (24.2-36.6)
[2019-04-18 18:54] LABS: Albumin 3.8 g/dL (3.9-5); Calcium 8.8 mg/dL (8.4-10.2)
--- NOTE | 2019-04-18 19:23 | Emergency Department Report ---
ED Abdominal Pain HPI - General Chief Complaint: Abdominal Pain Stated Complaint: ABD PAIN Time Seen by Provider: 04/18/19 15:32 Source: EMS Mode of arrival: Ambulatory Limitations: No Limitations - History of Present Illness MD Complaint: abdominal pain (patient reports hx of chrons disease. Reports he is not currently taking any medications. Reports abdominal pain that feels like past flares of his chronic chron's disease. Reports he has an appointment scheduled with GI upcoming shortly. ) -: Gradual, days(s) Location: [facility] Radiation: none Migration to: no migration Severity: mild Severity scale (0 -10): 2 Quality: aching Consistency: intermittent Improves With: nothing Worsens With: nothing Associated Symptoms: denies: nausea, vomiting, diarrhea, fever, chills, cons tipation, dysuria, hematemesis, hematochezia, melena, hematuria, anorexia, syncope - Related Data Home Medications Medication Instructions Recorded Confirmed Last Taken Dicyclomine [Bentyl] 10 mg PO QDAY 11/26/16 04/27/17 04/27/17 Divalproex [Anastasia Clinton] 500 mg PO QDAY 11/26/16 04/27/17 04/27/17 Famotidine [Pepcid] 20 mg PO QDAY PRN 11/26/16 04/27/17 Unknown Sucralfate [Carafate] 1 gm PO Q12H 11/26/16 04/27/17 04/27/17 Previous Rx's Medication Instructions Recorded Last Taken Type amLODIPine 5 mg PO DAILY #90 tab 04/28/16 05/18/16 Rx HYDROcodone/APAP 5-325 [[place] 1 - 2 each PO Q6HR PRN #10 tablet 05/19/16 Unknown Rx 5/325] Ciprofloxacin HCl [Ciprofloxacin 500 mg PO Q12H #14 tab 04/27/17 Unknown Rx TAB] traMADol [Ultram] 50 mg PO Q6HR PRN #14 tablet 04/27/17 Unknown Rx Dicyclomine [Bentyl] 20 mg PO QID PRN #20 tablet 05/03/18 Unknown Rx Dicyclomine [Bentyl] 20 mg PO QID PRN #20 tablet 08/02/18 Unknown Rx Ondansetron [Zofran Odt] 4 mg PO Q8HR PRN #20 tab.rapdis 08/02/18 Unknown Rx predniSONE [Deltasone] 50 mg PO QDAY #5 tab 04/18/19 Unknown Rx Allergies Allergy/AdvReac Type Severity Reaction Status Date / Time No Known Allergies Allergy Verified 04/27/17 13:51 ED Review of Systems ROS: Stated complaint: ABD PAIN Other details as noted in HPI Other: GENERAL: No weight change, fatigue, fever, chills, or night sweats SKIN: No changes in skin or hair, no itching, no rashes, no jaundice HEAD: No trauma, headache, or visual changes EYES: No blurriness, tearing, itching, acute visual loss, conjunctival discoloration, or scleral icterus EARS: No hearing loss, tinnitus, vertigo, or earache NOSE: No rhinorrhea, stuffiness, sneezing, itching, or epistaxis MOUTH: No bleeding gums, hoarseness, sore throat, or swelling CARDIAC: No new murmur, chest pain, palpitations, dyspnea on exertion, orthopnea, PND, or edema RESPIRATORY: No shortness of breath, wheeze, cough, sputum production, hemoptysis, pneumonia, asthma, bronchitis, or emphysema GI: Abdominal pain. No change in appetite, nausea, vomiting, dysphagia, diarrhea, constipation, hematemesis, melena, hematochezia URINARY: No frequency, urgency, polyuria, dysuria, hematuria, or incontinence MUSCULOSKELETAL: No muscle weakness, joint stiffness, decrease in range of motion, redness, swelling NEUROLOGIC: No headache, syncope, loss of sensation, numbness, tingling, tremors, weakness, paralysis, seizures HEMATOLOGIC: No anemia, easy bruising, bleeding, petechiae, or purpura ENDOCRINE: No hot or cold intolerance, sweating, polyuria, polydipsia or, polyphagia no thyroid problems PSYCHIATRIC: No change in mood, no anxiety, no depression ED Past Medical Hx - Past Medical History Previous Medical History?: Yes Hx Hypertension: Yes (FOR 4 MTHS) Hx Renal Disease: Yes Hx Arthritis: Yes (HANDS,KNEES) Additional medical history: crohns - Surgical History Past Surgical History?: No - Social History Smoking Status: Unknown if ever smoked - Medications Home Medications: Home Medications Medication Instructions Recorded Confirmed Last Taken Type amLODIPine 5 mg PO DAILY #90 tab 04/28/16 04/27/17 05/18/16 Rx HYDROcodone/APAP 5-325 [[place] 1 - 2 each PO Q6HR PRN #10 tablet 05/19/16 04/27/17 Unknown Rx 5/325] Dicyclomine [Bentyl] 10 mg PO QDAY 11/26/16 04/27/17 04/27/[address] [Depakote Dr] 500 mg PO QDAY 11/26/16 04/27/17 04/27/17 History Famotidine [Pepcid] 20 mg PO QDAY PRN 11/26/16 04/27/17 Unknown History Sucralfate [Carafate] 1 gm PO Q12H 11/26/16 04/27/17 04/27/17 History Ciprofloxacin HCl [Ciprofloxacin 500 mg PO Q12H #14 tab 04/27/17 Unknown Rx TAB] traMADol [Ultram] 50 mg PO Q6HR PRN #14 tablet 04/27/17 Unknown Rx Dicyclomine [Bentyl] 20 mg PO QID PRN #20 tablet 05/03/18 Unknown Rx Dicyclomine [Bentyl] 20 mg PO QID PRN #20 tablet 08/02/18 Unknown Rx Ondansetron [Zofran Odt] 4 mg PO Q8HR PRN #20 tab.rapdis 08/02/18 Unknown Rx predniSONE [Deltasone] 50 mg PO QDAY #5 tab 04/18/19 Unknown Rx ED Physical Exam - General Limitations: No Limitations - Other Other exam information: GENERAL: Patient in no acute distress HEAD: Normocephalic, atraumatic EYES: PERRLA, EOM intact, no scleral icterus, no conjunctival hemorrhage, visual barnard and acuity wnl NOSE: No tenderness, discharge, sinus tenderness MOUTH: No erythema, bleeding, exudate HEART: Regular rate and rhythm, no murmur, S1-S2 are auscultated, no edema, pulses are symmetric LUNGS: No respiratory distress. Bilateral breath sounds, No tachypnea, No retractions, No wheezing, rales, rhonchi ABDOMEN: Normal bowel sounds, abdomen soft, no tenderness, no rebound, no guardi ng, no distention, no masses, no CVA tenderness MUSCULOSKELETAL: Normal joint range of motion, no redness, no swelling, no tenderness NEUROLOGIC: GCS 15, Alert and Oriented x3, Cranial nerves intact, normal sensation, normal strength, no cerebellar deficit, NIHSS 0 SKIN: Skin is warm and dry, no wounds, no rashes ED Course Vital Signs 04/18/19 04/18/19 04/18/19 15:18 17:05 19:42 Temperature 98.2 F Pulse Rate 100 H 94 H Respiratory 12 12 19 Rate Blood Pressure 128/86 Blood Pressure 128/86 126/84 [Left] O2 Sat by Pulse 98 100 95 Oximetry ED Medical Decision Making - Lab Data Result diagrams: 04/18/19 18:17 04/18/19 18:17 Laboratory Results - last 24 hr 04/18/19 04/18/19 04/18/19 18:17 18:17 18:17 WBC 9.9 RBC 4.80 Hgb 13.5 Hct 40.1 MCV 84 MCH 28 MCHC 34 RDW 16.1 H Plt Count 214 Lymph % (Auto) 7.2 L Hyde % (Auto) 2.9 Eos % (Auto) 0.5 Baso % (Auto) 0.6 Lymph # 0.7 L Hyde # 0.3 Eos # 0.1 Baso # 0.1 Seg Neutrophils % 88.8 H Seg Neutrophils # 8.7 H PT 12.6 INR 0.95 APTT 24.1 L Sodium Potassium Chloride Carbon Dioxide Anion Gap BUN Creatinine Estimated GFR BUN/Creatinine Ratio Glucose Calcium Total Bilirubin AST ALT Alkaline Phosphatase Troponin T < 0.010 Total Protein Albumin Albumin/Globulin Ratio Lipase 04/18/19 18:17 WBC RBC Hgb Hct MCV MCH MCHC RDW Plt Count Lymph % (Auto) Hyde % (Auto) Eos % (Auto) Baso % (Auto) Lymph # Hyde # Eos # Baso # Seg Neutrophils % Seg Neutrophils # PT INR APTT Sodium 135 L Potassium 4.0 Chloride 99.5 Carbon Dioxide 21 L Anion Gap 19 BUN 39 H Creatinine 2.3 H Estimated GFR 35 BUN/Creatinine Ratio 17 Glucose 123 H Calcium 8.8 Total Bilirubin 0.20 AST 16 ALT 19 Alkaline Phosphatase 87 Troponin T Total Protein 6.9 Albumin 3.8 L Albumin/Globulin Ratio 1.2 Lipase 24 - EKG Data When compared to previous EKG there are: no significant change - Radiology Data Radiology results: report reviewed - Medical Decision Making Patient comfortable. Updated with results. Plan discharge with outpatient follow up. Return if any worsening. Critical care attestation.: If time is entered above; I have spent that time in minutes in the direct care of this critically ill patient, excluding procedure time. ED Disposition Clinical Impression: Renal insufficiency Abdominal pain Qualifiers: Abdominal location: unspecified location Qualified Code(s): R10.9 - Unspecified abdominal pain Disposition: TO HOME OR SELFCARE Is pt being admited?: No Condition: Stable Instructions: Chronic Kidney Disease (ED), Abdominal Pain (ED) Prescriptions: predniSONE [Deltasone] 50 mg PO QDAY #5 tab Referrals: ZAINAB VAIL [Other] - 2-3 Days [facility] [Provider Group] - 2-3 Days Time of Disposition: 19:22
[2019-04-18 19:43] VITALS: BP 126/84
== END 2019-04-18 19:47 | disposition home or self-care (01) ==
LOC: ED 15:01
DX: N28.9 Disorder of kidney and ureter, unspecified (principal); I10 Essential (primary) hypertension; M19.90 Unspecified osteoarthritis, unspecified site; Z79.899 Other long term (current) drug therapy
CPT/HCPCS: 36415; 74022; 74176; 80053; 83690; 84484; 85025; 85610; 85730; 93005; 93010; 96374; 96375; 99285; J1885; J2405; J2930; J7030

== ENCOUNTER 2019-05-02 23:58 | Emergency (ER) | payer MEDICAID ==
--- NOTE | 2019-05-03 00:07 | Emergency Department Report ---
ED General Adult HPI - General Chief complaint: Abdominal Pain Stated complaint: ABDOMINAL PAIN Time Seen by Provider: 05/03/19 00:02 Source: patient, RN notes reviewed Mode of arrival: Ambulatory Limitations: No Limitations - History of Present Illness Initial comments: Primary care Dr.: Dr. Calderon Gastroenterology: Dr. Eden Savage Past medical history: Crohn's disease, reports not being on current immune modulating therapy, and renal insufficiency. The patient is a 59-year-old gentleman presenting to the ER with a complaint of nontraumatic abdominal pain. The abdominal pain is in the left side mostly, started 3 days ago, is cramping and aching in nature, and moves to the right side. The pain is present for 3 days. There is no vomiting. There is no diarrhea. Denies bright red blood per rectum within the past 6-7 days. No irritative for structural urinary symptoms, and no testicular pain. Of note, he was seen in this department late March for abdominal pain, had essentially unremarkable laboratory studies, unremarkable CT scan, and was discharged with a steroid pack. He tells me that he has to follow-up with his manager property, but he is not done so recently. Apparently, in the past, he reports being scheduled for a colonoscopy, but didn't have it done secondary to "my blood pressure being high." -: Gradual Location: abdomen Radiation: other Quality: other Consistency: other Improves with: other Worsens with: other Associated Symptoms: other - Related Data Home Medications Medication Instructions Recorded Confirmed Last Taken Dicyclomine [Bentyl] 10 mg PO QDAY 11/26/16 04/27/17 04/27/17 Divalproex [Anastasia Clinton] 500 mg PO QDAY 11/26/16 04/27/17 04/27/17 Famotidine [Pepcid] 20 mg PO QDAY PRN 11/26/16 04/27/17 Unknown Sucralfate [Carafate] 1 gm PO Q12H 11/26/16 04/27/17 04/27/17 Previous Rx's Medication Instructions Recorded Last Taken Type amLODIPine 5 mg PO DAILY #90 tab 04/28/16 05/18/16 Rx HYDROcodone/APAP 5-325 [[place] 1 - 2 each PO Q6HR PRN #10 tablet 05/19/16 Unknown Rx 5/325] Ciprofloxacin HCl [Ciprofloxacin 500 mg PO Q12H #14 tab 04/27/17 Unknown Rx TAB] traMADol [Ultram] 50 mg PO Q6HR PRN #14 tablet 04/27/17 Unknown Rx Dicyclomine [Bentyl] 20 mg PO QID PRN #20 tablet 05/03/18 Unknown Rx Dicyclomine [Bentyl] 20 mg PO QID PRN #20 tablet 08/02/18 Unknown Rx Ondansetron [Zofran Odt] 4 mg PO Q8HR PRN #20 tab.rapdis 08/02/18 Unknown Rx predniSONE [Deltasone] 50 mg PO QDAY #5 tab 04/18/19 Unknown Rx Acetaminophen [Non-Aspirin Extra 500 mg PO Q6HR PRN #30 tablet 05/03/19 Unknown Rx Strength] Dicyclomine [Bentyl] 10 mg PO QID PRN #20 capsule 05/03/19 Unknown Rx Famotidine [Pepcid] 20 mg PO BID #10 tablet 05/03/19 Unknown Rx Metoclopramide [Reglan] 10 mg PO QID PRN #30 tablet 05/03/19 Unknown Rx Allergies Allergy/AdvReac Type Severity Reaction Status Date / Time No Known Allergies Allergy Verified 04/27/17 13:51 ED Review of Systems ROS: Stated complaint: ABDOMINAL PAIN Other details as noted in HPI Constitutional: denies: fever Eyes: denies: eye discharge ENT: denies: congestion Respiratory: denies: wheezing Cardiovascular: denies: chest pain, syncope Gastrointestinal: abdominal pain. denies: vomiting, hematemesis, melena, hematochezia Genitourinary: denies: dysuria, testicular pain Musculoskeletal: arthralgia (chronic bilateral knee pain, this is not more the patient's emergency room complaints.). denies: back pain Skin: denies: lesions Neurological: denies: headache Hematological/Lymphatic: denies: easy bleeding ED Past Medical Hx - Past Medical History Hx Hypertension: Yes (FOR 4 MTHS) Hx Renal Disease: Yes Hx Arthritis: Yes (HANDS,KNEES) Additional medical history: crohns - Social History Smoking Status: Unknown if ever smoked - Medications Home Medications: Home Medications Medication Instructions Recorded Confirmed Last Taken Type amLODIPine 5 mg PO DAILY #90 tab 04/28/16 04/27/17 05/18/16 Rx HYDROcodone/APAP 5-325 [[place] 1 - 2 each PO Q6HR PRN #10 tablet 05/19/16 04/27/17 Unknown Rx 5/325] Dicyclomine [Bentyl] 10 mg PO QDAY 11/26/16 04/27/17 04/27/[address] [Depakote Dr] 500 mg PO QDAY 11/26/16 04/27/17 04/27/17 History Famotidine [Pepcid] 20 mg PO QDAY PRN 11/26/16 04/27/17 Unknown History Sucralfate [Carafate] 1 gm PO Q12H 11/26/16 04/27/17 04/27/17 History Ciprofloxacin HCl [Ciprofloxacin 500 mg PO Q12H #14 tab 04/27/17 Unknown Rx TAB] traMADol [Ultram] 50 mg PO Q6HR PRN #14 tablet 04/27/17 Unknown Rx Dicyclomine [Bentyl] 20 mg PO QID PRN #20 tablet 05/03/18 Unknown Rx Dicyclomine [Bentyl] 20 mg PO QID PRN #20 tablet 08/02/18 Unknown Rx Ondansetron [Zofran Odt] 4 mg PO Q8HR PRN #20 tab.rapdis 08/02/18 Unknown Rx predniSONE [Deltasone] 50 mg PO QDAY #5 tab 04/18/19 Unknown Rx Acetaminophen [Non-Aspirin Extra 500 mg PO Q6HR PRN #30 tablet 05/03/19 Unknown Rx Strength] Dicyclomine [Bentyl] 10 mg PO QID PRN #20 capsule 05/03/19 Unknown Rx Famotidine [Pepcid] 20 mg PO BID #10 tablet 05/03/19 Unknown Rx Metoclopramide [Reglan] 10 mg PO QID PRN #30 tablet 05/03/19 Unknown Rx ED Physical Exam - General Limitations: No Limitations General appearance: alert, in no apparent distress, obese - Head Head exam: Present: atraumatic, normocephalic - Eye Eye exam: Present: normal appearance, EOMI. Absent: nystagmus - ENT ENT exam: Present: normal exam, normal orophraynx, mucous membranes moist, normal external ear exam - Neck Neck exam: Present: normal inspection, full ROM. Absent: tenderness, meningismus - Respiratory Respiratory exam: Present: normal lung sounds bilaterally. Absent: respiratory distress - Cardiovascular Cardiovascular Exam: Present: regular rate, normal rhythm, normal heart sounds. Absent: bradycardia, tachycardia, irregular rhythm, systolic murmur, diastolic murmur, rubs, gallop - GI/Abdominal GI/Abdominal exam: Present: soft, tenderness, other (there is left lower quadr ant abdominal pain. There is left lower quadrant tenderness.). Absent: distended, guarding, rebound, rigid, pulsatile mass - Rectal Rectal exam: Present: deferred - Extremities Exam Extremities exam: Present: normal inspection, other (2+ pulses noted in the bilateral upper, lower extremities. There is no long bone tenderness. Musculoskeletal compartments are soft. The pelvis is stable.). Absent: pedal edema, calf tenderness - Back Exam Back exam: Present: normal inspection, full ROM. Absent: tenderness, CVA tenderness (R), CVA tenderness (L), paraspinal tenderness, vertebral tenderness - Neurological Exam Neurological exam: Present: alert, oriented X3, other (there is no facial droop. The tongue is midline. Extraocular movements are intact bilaterally. Patient speaking in full complete sentences. Shoulder shrug is intact bilaterally. Hearing is grossly intact bilaterally. Visual acuity intact to finger counting and color perception at a close distance. 5/5 strength 4 extremities. Sensation intact to light touch in 4 extremities.) - Psychiatric Psychiatric exam: Present: normal affect, normal mood - Skin Skin exam: Present: warm, dry, intact, normal color. Absent: rash ED Course Vital Signs 05/03/19 05/03/19 05/03/19 00:20 02:40 02:49 Temperature 98 F Pulse Rate 90 90 87 Respiratory 20 17 18 Rate Blood Pressure 119/74 123/74 124/60 [Right] O2 Sat by Pulse 97 100 100 Oximetry - Reevaluation(s) Reevaluation #1: 05/03/19 00:06 [place] servic[place] administrator aware 04/09/2019 1 04/03/2019 TRAMADOL HCL 50 MG TABLET 12.0 3 KE EMANUEL [id number] [facility] ([id number]) 0 20.0 MME [place] 02/18/2019 1 02/18/2019 TRAMADOL HCL 50 MG TABLET 30.0 30 ZA JAY [id number] [facility] ([id number]) 0 5.0 MME Private Pay [place] 11/10/201811/09/2018 OXYCODONE-ACETAMINOPHEN 5-325 15.0 3 NI GIACOMO [id number] [facility] ([id number]) 0 37.5 MME [place] 11/02/2018 1 11/02/2018 TRAMADOL HCL 50 MG TABLET 12.0 3 JE SIE [id number] [facility] ([id number]) 0 20.0 [place] 10/26/2018 1 10/25/2018 TRAMADOL HCL 50 MG TABLET 15.0 3 [place] FLE [id number] [facility] ([id number]) 0 25.0 [place] 10/10/2018 2 08/15/2018 OXYCODONE-ACETAMINOPHEN 5-325 10.0 3 CO DIR [id number] [facility] ([id number]) 0 25.0 MME Other [place] 10/07/2018 3 10/05/2018 HYDROCODONE-ACETAMIN 5-325 MG 15.0 3 [place] FLE [id number] [facility] ([id number]) 0 25.0 [place]ME [place] 09/03/2018 1 09/02/2018 TRAMADOL HCL 50 MG TABLET 30.0 30 CH OKO [id number] [facility] ([id number]) 0 5.0 MME Medicaid [place] Reevaluation #2: 05/03/19 01:36 Torrential diagnosis, including not limited to: Crohn's flare, fistula, abscess, urinary tract infection, constipation, obstruction, volvulus Assessment and plan: 59-year-old gentleman with acute on chronic abdominal pain. He is afebrile with reassuring vital signs. Abdomen somewhat tender. We will treat his symptoms, obtain laboratory studies, EKG, urinalysis, CT scan abdomen pelvis with oral contrast, and we will reassess. Discussed plan of care with patient, who verbalized understanding, and is amenable to this diagnostic workup and evaluation. Reevaluation #3: 05/03/19 02:52 Belly soft on repeat exam. Feels improved. CT scan negative. Resting comfortably and in no acute distress. Laboratory studies reviewed and appreciated. Patient states he is reliable to follow-up with his outpatient manager property. ED Medical Decision Making - Lab Data Result diagrams: 05/03/19 00:30 05/03/19 00:30 Vital Signs 05/03/19 00:20 Temperature 98 F Pulse Rate 90 Respiratory 20 Rate Blood Pressure 119/74 [Right] O2 Sat by Pulse 97 Oximetry Lab Results 05/03/19 05/03/1905/03/19 Range/Units 00:30 00:30 00:30 WBC 8.8 (4.5-11.0) K/mm3 RBC 4.49 (3.65-5.03) M/mm3 Hgb 12.6 (11.8-15.2) gm/dl Hct 38.3 (35.5-45.6) % MCV 85 (84-94) fl MCH 28 (28-32) pg MCHC 33 (32-34) % RDW 16.4 H (13.2-15.2) % Plt Count 162 (140-440) K/mm3 Sodium 140 (137-145) mmol/L Potassium 4.4 (3.6-5.0) mmol/L Chloride 102.1 (98-107) mmol/L Carbon Dioxide 20 L (22-30) mmol/L Anion Gap 22 mmol/L BUN 49 H (9-20) mg/dL Creatinine 2.4 H (0.8-1.5) mg/dL Estimated GFR 34 ml/min BUN/Creatinine Ratio 20 % Glucose 137 H (75-100) mg/dL Calcium 9.2 (8.4-10.2) mg/dL Magnesium 2.50 H (1.7-2.3) mg/dL Total Bilirubin < 0.20 (0.1-1.2) mg/dL AST 17 (5-40) units/L ALT 18 (7-56) units/L Alkaline Phosphatase 87 (35-129) units/L Total Protein 6.8 (6.3-8.2) g/dL Albumin 3.9 (3.9-5) g/dL Albumin/Globulin Ratio 1.3 % - EKG Data -: EKG Interpreted by Nd EKG shows normal: sinus rhythm Rate: normal - EKG Data 05/03/19 01:37 The EKG today is unchanged from prior EKG from 04/18/2019 The EKG today shows a sinus rhythm, 92 bpm, low voltage, normal axis, QTC within normal limits, there is motion artifact, the EKG has nonspecific abnormalities, the EKG is not consistent with ST elevation myocardial infarction. - Radiology Data Radiology results: pending, report reviewed, image reviewed Print Report Referring Physician: EUFEMIA JAIME Patient Name: JAGJIT ANN Date of : 1960 Sex: Male Report Date: 2019-05-03 Report Status: Finalized Findings [facility] [address] [place] [id number] Cat Scan Report Signed Patient: JAGJIT ANN MR#: [id number] : 1960 Acct:[id number] Age/Sex: 59 / M ADM Date: 05/02/19 Loc: ED Attending Dr: Ordering Physician: EUFEMIA JAIME MD Date of Service: 05/03/19 Procedure(s): CT abdomen pelvis wo con Accession Number(s): [id number] cc: EUFEMIA JAIME MD CT abdomen pelvis wo con INDICATION / CLINICAL INFORMATION: MAIN: LLQ abd pain, Crohns disease, PO contrast. TECHNIQUE: Axial CT imaging of abdomen and pelvis was obtained without IV contrast. Oral contrast was given. Coronal and sagittal reformatted imaging obtained and reviewed. All CT scans at this location are performed using CT dose reduction for ALARA by means of automated exposure control. COMPARISON: Prior CT, 04/18/2019 FINDINGS: CT abdomen without contrast demonstrates grossly normal appearance of the liver, spleen, pancreas, kidneys, and adrenal glands. Gallbladder is unremarkable. CT pelvis without contrast demonstrates normal appearance of the appendix. No pelvic mass, free fluid, or focal inflammatory changes noted. GI tract is grossly unremarkable. Visualized lung bases are clear. Mild degenerative changes present throughout the visualized spine. IMPRESSION: 1. No acute finding within the abdomen or pelvis. I do not see any suggestion for active Crohn's disease at this time. Signer Name: Abena Potts MD Signed: 05/03/2019 2:20 AM Workstation Name: [id number] Transcribed By: Dictated By: Abena Potts MD Electronically Authenticated By: Abena Potts MD Signed Date/Time: 05/03/19219 DD/ 3 TD/TT: Critical care attestation.: If time is entered above; I have spent that time in minutes in the direct care of this critically ill patient, excluding procedure time. ED Disposition Clinical Impression: Abdominal pain, Renal insufficiency Disposition: - TO HOME OR SELFCARE Is pt being admited?: No Does the pt Need Aspirin: No Condition: Stable Additional Instructions: Continue outpatient medications. Avoid consumption of Motrin, ibuprofen, Naprosyn, Aleve. Take the pain medications as needed and/or directed. Take the nausea medication as needed and/or directed. Recommend following up with your primary care doctor or manager property within the next 3-5 days. Avoid consumption of alcohol. Return to the emergency room right away with new, worsened, different symptoms, or symptoms not present on the initial emergency room evaluation. Prescriptions: Dicyclomine [Bentyl] 10 mg PO QID PRN #20 capsule PRN Reason: Pain Acetaminophen [Non-Aspirin Extra Strength] 500 mg PO Q6HR PRN #30 tablet PRN Reason: Pain , Severe (7-10) Famotidine [Pepcid] 20 mg PO BID #10 tablet Metoclopramide [Reglan] 10 mg PO QID PRN #30 tablet PRN Reason: Nausea Referrals: MACK SAVAGE MD [Staff Physician] - 3-5 Days
[2019-05-03] MEDS ORDERED: MORPHINE 4 MG/1 ML INJ IV ONE (00:14)
[2019-05-03] MEDS ORDERED: SODIUM CHLORIDE 0.9% 500 ML 500 ML IV ONE (00:14)
[2019-05-03 00:55] LABS: Hematocrit 38.3 % (35.5-45.6); Hemoglobin 12.6 gm/dl (11.8-15.2); Mean Corpuscular HGB Conc 33 % (32-34); Mean Corpuscular Volume 85 fl (84-94); Platelet Count 162 K/mm3 (140-440); Red Blood Count 4.49 M/mm3 (3.65-5.03); Red Cell Distribution Width 16.4 % (13.2-15.2)
[2019-05-03 01:19] LABS: Alanine Aminotransferase 18 units/L (7-56); Albumin 3.9 g/dL (3.9-5); BUN/Creatinine Ratio 20; Blood Urea Nitrogen 49 mg/dL (9-20); Calcium 9.2 mg/dL (8.4-10.2); Hemolysis Index 16
[2019-05-03 01:53] LABS: Bilirubin,Urine NEG (Negative); Blood,Urine NEG (Negative); Color,Urine Straw (Yellow); Protein,Urine <15 mg/dL mg/dL (Negative); Urobilinogen,Urine < 2.0 mg/dL (<2.0)
--- NOTE | 2019-05-03 02:24 | Cat Scan Report ---
CT abdomen pelvis wo con INDICATION / CLINICAL INFORMATION: MAIN: LLQ abd pain, Crohns disease, PO contrast. TECHNIQUE: Axial CT imaging of abdomen and pelvis was obtained without IV contrast. Oral contrast was given. Cor onal and sagittal reformatted imaging obtained and reviewed. All CT scans at this location are perfo rmed using CT dose reduction for ALARA by means of automated exposure control. COMPARISON: Prior CT, 04/18/2019 FINDINGS: CT abdomen without contrast demonstrates grossly normal appearance of the liver, spleen, pancreas, ki dneys, and adrenal glands. Gallbladder is unremarkable. CT pelvis without contrast demonstrates normal appearance of the appendix. No pelvic mass, free fluid , or focal inflammatory changes noted. GI tract is grossly unremarkable. Visualized lung bases are clear. Mild degenerative changes present throughout the visualized spine. IMPRESSION: 1. No acute finding within the abdomen or pelvis. I do not see any suggestion for active Crohn's dise ase at this time. Signer Name: Abena Potts MD Signed: 05/03/2019 2:20 AM Workstation Name: [id number]
[2019-05-03] MEDS ORDERED: oxyCODONE /ACETAMINOPHEN 5-325MG TAB PO ONE (02:31)
[2019-05-03 02:54] VITALS: BP 123/74
== END 2019-05-03 03:00 | disposition home or self-care (01) ==
LOC: ED 23:58
DX: N28.9 Disorder of kidney and ureter, unspecified (principal); R10.9 Unspecified abdominal pain; I10 Essential (primary) hypertension; N28.89 Other specified disorders of kidney and ureter; M19.90 Unspecified osteoarthritis, unspecified site; Z79.899 Other long term (current) drug therapy
CPT/HCPCS: 36415; 74176; 80053; 81001; 82550; 83735; 85027; 93005; 93010; 96374; 99285; J2270; J7040

== ENCOUNTER 2020-03-07 14:09 | Emergency (ER) | payer MEDICAID ==
--- NOTE | 2020-03-07 14:13 | Emergency Department Report ---
Blank Doc - Documentation Documentation: 60-year-old male that presents with abdominal pain with n/v. This initial assessment/diagnostic orders/clinical plan/treatment(s) is/are subject to change based on patient's health status, clinical progression and re- assessment by fellow clinical providers in the ED. Further treatment and workup at subsequent clinical providers discretion. Patient/guardians urged not to elope from the ED as their condition may be serious if not clinically assessed and managed. Initial orders include: 1- Patient sent to [facility] for further evaluation and treatment 2- labs 3- UA
[2020-03-07 14:53] LABS: Basophils % (Auto) 0.6 % (0.0-1.8); Eosinophils # (Auto) 0.2 K/mm3 (0.0-0.4); Eosinophils % (Auto) 2.4 % (0.0-4.3); Hematocrit 35.2 % (35.5-45.6); Hemoglobin 11.4 gm/dl (11.8-15.2); Lymphocytes # (Auto) 0.8 K/mm3 (1.2-5.4); Mean Corpuscular HGB Conc 32 % (32-34); Mean Corpuscular Volume 85 fl (84-94); Monocytes # (Auto) 0.9 K/mm3 (0.0-0.8); Monocytes % (Auto) 13.2 % (0.0-7.3); Platelet Count 195 K/mm3 (140-440); Red Blood Count 4.17 M/mm3 (3.65-5.03); Red Cell Distribution Width 17.4 % (13.2-15.2)
[2020-03-07] MEDS ORDERED: MORPHINE 4 MG/1 ML INJ IV ONE ×2 (14:54→16:16)
[2020-03-07] MEDS ORDERED: SODIUM CHLORIDE 0.9% 1000 ML 1,000 ML IV ONE (14:54)
[2020-03-07] MEDS ORDERED: ONDANSETRON 4 MG/2 ML INJ IV ONE (14:54)
--- NOTE | 2020-03-07 15:31 | Emergency Department Report ---
ED General Adult HPI - General Chief complaint: Abdominal Pain Stated complaint: ABD PAIN Time Seen by Provider: 03/07/20 14:12 Source: patient Mode of arrival: Ambulatory Limitations: No Limitations - History of Present Illness Initial comments: Patient is a 60-year-old male past medical history of high blood pressure who presents with left lower quadrant abdominal pain that is been going on for the last couple days. Says the pain is severe nothing makes it better nothing makes it worse. Patient also says he has been nauseated and vomiting. Patient patient denies having any fevers or chills patient also states that he has not been drinking much fluids. Severity scale (0 -10): 10 - Related Data Home Medications Medication Instructions Recorded Confirmed Last Taken Dicyclomine [Bentyl] 10 mg PO QDAY 11/26/16 04/27/17 04/27/[address] [Depakote Dr] 500 mg PO QDAY 11/26/16 04/27/17 04/27/17 Famotidine [Pepcid] 20 mg PO QDAY PRN 11/26/16 04/27/17 Unknown Sucralfate [Carafate] 1 gm PO Q12H 11/26/16 04/27/17 04/27/17 Previous Rx's Medication Instructions Recorded Last Taken Type amLODIPine 5 mg PO DAILY #90 tab 04/28/16 05/18/16 Rx HYDROcodone/APAP 5-325 [[place] 1 - 2 each PO Q6HR PRN #10 tablet 05/19/16 Unknown Rx 5/325] Ciprofloxacin HCl [Ciprofloxacin 500 mg PO Q12H #14 tab 04/27/17 Unknown Rx TAB] traMADoL [Ultram] 50 mg PO Q6HR PRN #14 tablet 04/27/17 Unknown Rx Dicyclomine [Bentyl] 20 mg PO QID PRN #20 tablet 05/03/18 Unknown Rx Dicyclomine [Bentyl] 20 mg PO QID PRN #20 tablet 08/02/18 Unknown Rx Ondansetron [Zofran Odt] 4 mg PO Q8HR PRN #20 tab.rapdis 08/02/18 Unknown Rx predniSONE [Deltasone] 50 mg PO QDAY #5 tab 04/18/19 Unknown Rx Acetaminophen [Non-Aspirin Extra 500 mg PO Q6HR PRN #30 tablet 05/03/19 Unknown Rx Strength] Dicyclomine [Bentyl] 10 mg PO QID PRN #20 capsule 05/03/19 Unknown Rx Famotidine [Pepcid] 20 mg PO BID #10 tablet 05/03/19 Unknown Rx Metoclopramide [Reglan] 10 mg PO QID PRN #30 tablet 05/03/19 Unknown Rx Promethazine [Phenergan] 25 mg PO Q6HR PRN #20 tab 03/07/20 Unknown Rx Allergies Allergy/AdvReac Type Severity Reaction Status Date / Time No Known Allergies Allergy Verified 04/27/17 13:51 ED Review of Systems ROS: Stated complaint: ABD PAIN Other details as noted in HPI Constitutional: denies: chills, fever Eyes: denies: eye pain, eye discharge, vision change ENT: denies: ear pain, throat pain Respiratory: denies: cough, shortness of breath, wheezing Cardiovascular: denies: chest pain, palpitations Endocrine: no symptoms reported Gastrointestinal: abdominal pain, nausea, vomiting. denies: diarrhea Genitourinary: denies: urgency, dysuria Musculoskeletal: denies: back pain, joint swelling, arthralgia Skin: denies: rash, lesions Neurological: denies: headache, weakness, paresthesias Psychiatric: denies: anxiety, depression Hematological/Lymphatic: denies: easy bleeding, easy bruising ED Past Medical Hx - Past Medical History Previous Medical History?: Yes Hx Hypertension: Yes (FOR 4 MTHS) Hx Renal Disease: Yes Hx Arthritis: Yes (HANDS,KNEES) Additional medical history: crohns - Surgical History Past Surgical History?: No - Social History Smoking Status: Never Smoker Substance Use Type: Alcohol - Medications Home Medications: Home Medications Medication Instructions Recorded Confirmed Last Taken Type amLODIPine 5 mg PO DAILY #90 tab 04/28/16 04/27/17 05/18/16 Rx HYDROcodone/APAP 5-325 [[place] 1 - 2 each PO Q6HR PRN #10 tablet 05/19/16 04/27/17 Unknown Rx 5/325] Dicyclomine [Bentyl] 10 mg PO QDAY 11/26/16 04/27/17 04/27/17 History Divalproex [Anastasia Clinton] 500 mg PO QDAY 11/26/16 04/27/17 04/27/17 History Famotidine [Pepcid] 20 mg PO QDAY PRN 11/26/16 04/27/17 Unknown History Sucralfate [Carafate] 1 gm PO Q12H 11/26/16 04/27/17 04/27/17 History Ciprofloxacin HCl [Ciprofloxacin 500 mg PO Q12H #14 tab 04/27/17 Unknown Rx TAB] traMADoL [Ultram] 50 mg PO Q6HR PRN #14 tablet 04/27/17 Unknown Rx Dicyclomine [Bentyl] 20 mg PO QID PRN #20 tablet 05/03/18 Unknown Rx Dicyclomine [Bentyl] 20 mg PO QID PRN #20 tablet 08/02/18 Unknown Rx Ondansetron [Zofran Odt] 4 mg PO Q8HR PRN #20 tab.rapdis 08/02/18 Unknown Rx predniSONE [Deltasone] 50 mg PO QDAY #5 tab 04/18/19 Unknown Rx Acetaminophen [Non-Aspirin Extra 500 mg PO Q6HR PRN #30 tablet 05/03/19 Unknown Rx Strength] Dicyclomine [Bentyl] 10 mg PO QID PRN #20 capsule 05/03/19 Unknown Rx Famotidine [Pepcid] 20 mg PO BID #10 tablet 05/03/19 Unknown Rx Metoclopramide [Reglan] 10 mg PO QID PRN #30 tablet 05/03/19 Unknown Rx Promethazine [Phenergan] 25 mg PO Q6HR PRN #20 tab 03/07/20 Unknown Rx ED Physical Exam - General Limitations: No Limitations General appearance: alert, in no apparent distress - Head Head exam: Present: atraumatic, normocephalic - Eye Eye exam: Present: normal appearance - ENT ENT exam: Present: mucous membranes moist - Neck Neck exam: Present: normal inspection - Respiratory Respiratory exam: Present: normal lung sounds bilaterally. Absent: respiratory distress - Cardiovascular Cardiovascular Exam: Present: regular rate, normal rhythm. Absent: systolic murmur, diastolic murmur, rubs, gallop - GI/Abdominal GI/Abdominal exam: Present: soft, normal bowel sounds, other (Left lower quadrant abdominal pain) - Rectal Rectal exam: Present: deferred - Extremities Exam Extremities exam: Present: normal inspection - Back Exam Back exam: Present: normal inspection - Neurological Exam Neurological exam: Present: alert, oriented X3 - Psychiatric Psychiatric exam: Present: normal affect, normal mood - Skin Skin exam: Present: warm, dry, intact, normal color. Absent: rash ED Course Vital Signs 03/07/20 03/07/20 03/07/20 14:14 14:16 15:08 Temperature 98.0 F Pulse Rate 102 H Respiratory 18 20 Rate Blood Pressure 97/68 [Right] O2 Sat by Pulse 95 Oximetry 03/07/20 03/07/20 15:38 17:19 Temperature Pulse Rate Respiratory 18 18 Rate Blood Pressure [Right] O2 Sat by Pulse Oximetry ED Medical Decision Making - Lab Data Result diagrams: 03/07/20 14:17 03/07/20 14:17 Lab Results 03/07/20 03/07/20 Range/Units 14:17 14:17 WBC 6.5 (4.5-11.0) K/mm3 RBC 4.17 (3.65-5.03) M/mm3 Hgb 11.4 L (11.8-15.2) gm/dl Hct 35.2 L (35.5-45.6) % MCV 85 (84-94) fl MCH 27 L (28-32) pg MCHC 32 (32-34) % RDW 17.4 H (13.2-15.2) % Plt Count 195 (140-440) K/mm3 Lymph % (Auto) 12.0 L (13.4-35.0) % Caroline % (Auto) 13.2 H (0.0-7.3) % Eos % (Auto) 2.4 (0.0-4.3) % Baso % (Auto) 0.6 (0.0-1.8) % Lymph # 0.8 L (1.2-5.4) K/mm3 Caroline # 0.9 H (0.0-0.8) K/mm3 Eos # 0.2 (0.0-0.4) K/mm3 Baso # 0.0 (0.0-0.1) K/mm3 Seg Neutrophils % 71.8 H (40.0-70.0) % Seg Neutrophils # 4.7 (1.8-7.7) K/mm3 Sodium 135 L (137-145) mmol/L Potassium 3.8 (3.6-5.0) mmol/L Chloride 100.2 (98-107) mmol/L Carbon Dioxide 15 L (22-30) mmol/L Anion Gap 24 mmol/L BUN 25 H (9-20) mg/dL Creatinine 2.0 H (0.8-1.3) mg/dL Estimated GFR 41 ml/min BUN/Creatinine Ratio 13 % Glucose 121 H (75-100) mg/dL Calcium 9.0 (8.4-10.2) mg/dL Total Bilirubin 0.30 (0.1-1.2) mg/dL AST 21 (5-40) units/L ALT 16 (7-56) units/L Alkaline Phosphatase 93 (35-129) units/L Total Protein 7.0 (6.3-8.2) g/dL Albumin 4.0 (3.9-5) g/dL Albumin/Globulin Ratio 1.3 % Lipase 26 (13-60) units/L - Radiology Data Radiology results: report reviewed, image reviewed CT abdomen: Shows no acute abdominal process. - Medical Decision Making Chief medical diagnosis: Colitis Differential medical diagnosis: Diverticulitis, pancreatitis, small bowel obstruction, electrolyte abnormality I will get a CT scan, CBC, BMP, lipase, IV pain medicine IV fluids IV Zofran and I will reevaluate the patient 17: 43 patient is feeling better CT scan shows no acute process within the abdomen I will discharge patient with follow-up with GI patient agrees to plan additional verbal discharge instructions were given. Critical care attestation.: If time is entered above; I have spent that time in minutes in the direct care of this critically ill patient, excluding procedure time. ED Disposition Clinical Impression: Abdominal pain Qualifiers: Abdominal location: left lower quadrant Qualified Code(s): R10.32 - Left lower quadrant pain Nausea & vomiting Qualifiers: Vomiting type: unspecified Vomiting Intractability: unspecified Qualified Code(s): R11.2 - Nausea with vomiting, unspecified Disposition: DC-01 TO HOME OR SELFCARE Is pt being admited?: No Does the pt Need Aspirin: No Condition: Stable Instructions: Abdominal Pain (ED) Prescriptions: Promethazine [Phenergan] 25 mg PO Q6HR PRN #20 tab PRN Reason: Nausea Referrals: RAFAEL MCCARTHY PA [Primary Care Provider] - 3-5 Days VALDEMAR LEVINE MD [Staff Physician] - 3-5 Days
[2020-03-07] MEDS ORDERED: KETOROLAC 30 MG/1 ML INJ IV ONE (16:16)
[2020-03-07 16:21] LABS: Bilirubin,Urine NEG (Negative); Blood,Urine NEG (Negative); Color,Urine Yellow (Yellow); Mucus,Urine FEW /HPF; Protein,Urine <15 mg/dL mg/dL (Negative); Urobilinogen,Urine < 2.0 mg/dL (<2.0)
--- NOTE | 2020-03-07 17:32 | Cat Scan Report ---
CT ABDOMEN AND PELVIS WITH CONTRAST INDICATION: llq abd pain. TECHNIQUE: Axial CT images were obtained through the abdomen and pelvis after 60 cc Omnipaque [address] scans at this location are performed using CT dose reduction for ALARA by means of automated e xposure control. COMPARISON: CT abdomen and pelvis 05/03/2019 FINDINGS: LOWER CHEST: No significant abnormality. LIVER: No significant abnormality. GALLBLADDER: No significant abnormality. BILE DUCTS: No significant abnormality. PANCREAS: No significant abnormality. SPLEEN: No significant abnormality. ADRENALS: No significant abnormality. RIGHT KIDNEY and URETER: No significant abnormality. LEFT KIDNEY and URETER: No significant abnormality. STOMACH and SMALL BOWEL: No significant abnormality. COLON: No significant abnormality. APPENDIX: No significant abnormality. PERITONEUM: No free fluid. No free air. No fluid collection. LYMPH NODES: No significant adenopathy. AORTA and ARTERIES: No significant abnormality. IVC and VEINS: No significant abnormality. URINARY BLADDER: No significant abnormality. REPRODUCTIVE ORGANS: No significant abnormality. ADDITIONAL FINDINGS: None. SKELETAL SYSTEM: No significant abnormality. IMPRESSION: 1. No significant abnormality. Signer Name: Behzad Stubbs MD Signed: 03/07/2020 5:27 PM Workstation Name: [id number]
[2020-03-07 18:24] VITALS: BP 126/82
== END 2020-03-07 18:24 | disposition home or self-care (01) ==
LOC: ED 14:09
DX: R10.32 Left lower quadrant pain (principal); R11.2 Nausea with vomiting, unspecified; M17.0 Bilateral primary osteoarthritis of knee; M19.042 Primary osteoarthritis, left hand; M19.041 Primary osteoarthritis, right hand; I10 Essential (primary) hypertension; Z79.899 Other long term (current) drug therapy
CPT/HCPCS: 36415; 74177; 80053; 81001; 83690; 85025; 96361; 96374; 96375; 96376; 99284; J1885; J2270; J2405; J7030; Q9967

== ENCOUNTER 2020-04-16 21:09 | Emergency (ER) | payer MEDICAID ==
[2020-04-16 22:02] LABS: Basophils % (Auto) 0.8 % (0.0-1.8); Eosinophils # (Auto) 0.2 K/mm3 (0.0-0.4); Eosinophils % (Auto) 3.1 % (0.0-4.3); Hemoglobin 11.4 gm/dl (11.8-15.2); Mean Corpuscular HGB Conc 33 % (32-34); Mean Corpuscular Volume 83 fl (84-94); Monocytes # (Auto) 0.7 K/mm3 (0.0-0.8); Monocytes % (Auto) 11.3 % (0.0-7.3); Platelet Count 237 K/mm3 (140-440); Red Blood Count 4.23 M/mm3 (3.65-5.03); Red Cell Distribution Width 17.3 % (13.2-15.2)
[2020-04-16 22:30] LABS: Alanine Aminotransferase 16 units/L (7-56); Albumin 3.9 g/dL (3.9-5); BUN/Creatinine Ratio 13; Blood Urea Nitrogen 24 mg/dL (9-20); Calcium 9.2 mg/dL (8.4-10.2); Hemolysis Index 9
[2020-04-16] MEDS ORDERED: MORPHINE 2 MG/1 ML INJ IV ONE (23:48)
[2020-04-16] MEDS ORDERED: methylPREDNISolone Sod Succinate 125 MG/2 ML INJ IV ONE (23:48)
[2020-04-16] MEDS ORDERED: SODIUM CHLORIDE 0.9% 1000 ML 1,000 ML IV ONE (23:48)
--- NOTE | 2020-04-16 23:51 | Emergency Department Report ---
ED Abdominal Pain HPI - General Chief Complaint: Abdominal Pain Stated Complaint: ABDOMINAL PAIN Time Seen by Provider: 04/16/20 23:31 Source: patient Mode of arrival: Ambulatory Limitations: No Limitations - History of Present Illness Initial Comments: 60-year-old male, history of Crohn's disease, presents to ED with complaint of abdominal pain since yesterday. Patient states pain is located on the left lower quadrant, consistent with his usual pain secondary to Crohn's. Patient reports pain has been intermittent since yesterday. He reports an episode of bloody stool once on yesterday. Normal stool today. Patient denies any fever, nausea, vomiting. Patient states he has not taken anything for the pain. MD Complaint: abdominal pain -: days(s) (2) Location: LLQ Radiation: none Migration to: no migration Severity: moderate Quality: sharp Consistency: intermittent Improves With: nothing Worsens With: nothing Associated Symptoms: hematochezia. denies: nausea, vomiting, diarrhea, fever - Related Data Home Medications Medication Instructions Recorded Confirmed Last Taken Dicyclomine [Bentyl] 10 mg PO QDAY 11/26/16 04/27/17 04/27/17 Divalproex [Anastasia Clinton] 500 mg PO QDAY 11/26/16 04/27/17 04/27/17 Famotidine [Pepcid] 20 mg PO QDAY PRN 11/26/16 04/27/17 Unknown Sucralfate [Carafate] 1 gm PO Q12H 11/26/16 04/27/17 04/27/17 Previous Rx's Medication Instructions Recorded Last Taken Type amLODIPine 5 mg PO DAILY #90 tab 04/28/16 05/18/16 Rx HYDROcodone/APAP 5-325 [[place] 1 - 2 each PO Q6HR PRN #10 tablet 05/19/16 Unknown Rx 5/325] Ciprofloxacin HCl [Ciprofloxacin 500 mg PO Q12H #14 tab 04/27/17 Unknown Rx TAB] traMADoL [Ultram] 50 mg PO Q6HR PRN #14 tablet 04/27/17 Unknown Rx Dicyclomine [Bentyl] 20 mg PO QID PRN #20 tablet 05/03/18 Unknown Rx Dicyclomine [Bentyl] 20 mg PO QID PRN #20 tablet 08/02/18 Unknown Rx Ondansetron [Zofran Odt] 4 mg PO Q8HR PRN #20 tab.rapdis 08/02/18 Unknown Rx predniSONE [Deltasone] 50 mg PO QDAY #5 tab 04/18/19 Unknown Rx Acetaminophen [Non-Aspirin Extra 500 mg PO Q6HR PRN #30 tablet 05/03/19 Unknown Rx Strength] Dicyclomine [Bentyl] 10 mg PO QID PRN #20 capsule 05/03/19 Unknown Rx Famotidine [Pepcid] 20 mg PO BID #10 tablet 05/03/19 Unknown Rx Metoclopramide [Reglan] 10 mg PO QID PRN #30 tablet 05/03/19 Unknown Rx Promethazine [Phenergan] 25 mg PO Q6HR PRN #20 tab 03/07/20 Unknown Rx Dicyclomine [Bentyl] 20 mg PO QID PRN #20 tablet 04/17/20 Unknown Rx Allergies Allergy/AdvReac Type Severity Reaction Status Date / Time No Known Allergies Allergy Verified 04/27/17 13:51 ED Review of Systems ROS: Stated complaint: ABDOMINAL PAIN Other details as noted in HPI Comment: All other systems reviewed and negative Constitutional: denies: chills, fever Gastrointestinal: abdominal pain, hematochezia. denies: nausea, vomiting, diarrhea ED Past Medical Hx - Past Medical History Previous Medical History?: Yes Hx Hypertension: Yes (FOR 4 MTHS) Hx Renal Disease: Yes Hx Arthritis: Yes (HANDS,KNEES) Additional medical history: crohns - Surgical History Past Surgical History?: No - Social History Smoking Status: Never Smoker Substance Use Type: Alcohol - Medications Home Medications: Home Medications Medication Instructions Recorded Confirmed Last Taken Type amLODIPine 5 mg PO DAILY #90 tab 04/28/16 04/27/17 05/18/16 Rx HYDROcodone/APAP 5-325 [[place] 1 - 2 each PO Q6HR PRN #10 tablet 05/19/16 04/27/17 Unknown Rx 5/325] Dicyclomine [Bentyl] 10 mg PO QDAY 11/26/16 04/27/17 04/27/17 History Divalproex [Anastasia Clinton] 500 mg PO QDAY 11/26/16 04/27/17 04/27/17 History Famotidine [Pepcid] 20 mg PO QDAY PRN 11/26/16 04/27/17 Unknown History Sucralfate [Carafate] 1 gm PO Q12H 11/26/16 04/27/17 04/27/17 History Ciprofloxacin HCl [Ciprofloxacin 500 mg PO Q12H #14 tab 04/27/17 Unknown Rx TAB] traMADoL [Ultram] 50 mg PO Q6HR PRN #14 tablet 04/27/17 Unknown Rx Dicyclomine [Bentyl] 20 mg PO QID PRN #20 tablet 05/03/18 Unknown Rx Dicyclomine [Bentyl] 20 mg PO QID PRN #20 tablet 08/02/18 Unknown Rx Ondansetron [Zofran Odt] 4 mg PO Q8HR PRN #20 tab.rapdis 08/02/18 Unknown Rx predniSONE [Deltasone] 50 mg PO QDAY #5 tab 04/18/19 Unknown Rx Acetaminophen [Non-Aspirin Extra 500 mg PO Q6HR PRN #30 tablet 05/03/19 Unknown Rx Strength] Dicyclomine [Bentyl] 10 mg PO QID PRN #20 capsule 05/03/19 Unknown Rx Famotidine [Pepcid] 20 mg PO BID #10 tablet 05/03/19 Unknown Rx Metoclopramide [Reglan] 10 mg PO QID PRN #30 tablet 05/03/19 Unknown Rx Promethazine [Phenergan] 25 mg PO Q6HR PRN #20 tab 03/07/20 Unknown Rx Dicyclomine [Bentyl] 20 mg PO QID PRN #20 tablet 04/17/20 Unknown Rx ED Physical Exam - General Limitations: No Limitations General appearance: alert, in no apparent distress - Head Head exam: Present: atraumatic, normocephalic - Eye Eye exam: Present: normal appearance, EOMI - ENT ENT exam: Present: mucous membranes moist - Neck Neck exam: Present: normal inspection - Respiratory Respiratory exam: Present: normal lung sounds bilaterally. Absent: respiratory distress - Cardiovascular Cardiovascular Exam: Present: regular rate, normal rhythm - GI/Abdominal GI/Abdominal exam: Present: soft, tenderness (Left lower quadrant). Absent: distended - Extremities Exam Extremities exam: Present: normal inspection - Neurological Exam Neurological exam: Present: alert, oriented X3 - Psychiatric Psychiatric exam: Present: normal affect, normal mood - Skin Skin exam: Present: warm, dry, intact, normal color ED Course Vital Signs 04/16/20 04/16/20 21:30 23:57 Temperature 98.2 F Pulse Rate 93 H 92 H Respiratory 18 22 Rate Blood Pressure 140/101 Blood Pressure 137/93 [Left] O2 Sat by Pulse 97 98 Oximetry ED Medical Decision Making - Lab Data Result diagrams: 04/16/20 21:33 04/16/20 21:33 - Medical Decision Making 60-year-old male, history of Crohn's disease with chronic left lower quadrant abdominal pain. Patient presents to ED for exacerbation of his usual left lower quadrant pain. Vital signs are normal. Labs are stable compared to previous visit. CT abdomen pelvis as recently as last month which was normal. Will not repeat CAT scan at this time. IV fluids, morphine, Solu-Medrol given. He states he is feeling much better and is comfortable with discharge home. Outpatient follow-up advised. Return precautions given. - Differential Diagnosis Chronic abdominal pain, diverticulitis, dehydration Critical care attestation.: If time is entered above; I have spent that time in minutes in the direct care of this critically ill patient, excluding procedure time. ED Disposition Clinical Impression: Abdominal pain Disposition: DC-01 TO HOME OR SELFCARE Is pt being admited?: No Condition: Stable Instructions: Abdominal Pain (ED) Prescriptions: Dicyclomine [Bentyl] 20 mg PO QID PRN #20 tablet PRN Reason: abdominal pain Referrals: PRIMARY CARE, [Referring] - 3-5 Days
[2020-04-16 23:57] VITALS: BP 137/93
== END 2020-04-17 03:23 | disposition home or self-care (01) ==
LOC: ED 21:09
DX: R10.32 Left lower quadrant pain (principal); K92.1 Melena; I10 Essential (primary) hypertension; M19.91 Primary osteoarthritis, unspecified site; Z79.2 Long term (current) use of antibiotics; Z79.899 Other long term (current) drug therapy
CPT/HCPCS: 36415; 80053; 83690; 85025; 96361; 96374; 96375; 99283; J2270; J2930; J7030

== ENCOUNTER 2020-05-27 20:23 | Emergency (ER) | payer MEDICAID ==
--- NOTE | 2020-05-27 21:06 | Event Note ---
ED Screening Note Date of service: 05/27/20 Time: 21:05 ED Screening Note: Complains of right-sided abdominal pain x2 days States it feels like his Crohn's flare Denies hematochezia This initial assessment/diagnostic orders/clinical plan/treatment(s) is/are subject to change based on patients health status, clinical progression and re- assessment by fellow clinical providers in the ED. Further treatment and workup at subsequent clinical providers discretion. Patient/guardian urged not to elope from the ED as their condition may be serious if not clinically assessed and managed. Initial orders include: Labs CT
[2020-05-27 21:47] LABS: Basophils # (Auto) 0.1 K/mm3 (0.0-0.1); Basophils % (Auto) 0.8 % (0.0-1.8); Eosinophils % (Auto) 0.1 % (0.0-4.3); Hematocrit 34.9 % (35.5-45.6); Hemoglobin 11.5 gm/dl (11.8-15.2); Lymphocytes # (Auto) 1.3 K/mm3 (1.2-5.4); Lymphocytes % (Auto) 16.2 % (13.4-35.0); Mean Corpuscular HGB Conc 33 % (32-34); Mean Corpuscular Volume 81 fl (84-94); Monocytes # (Auto) 0.9 K/mm3 (0.0-0.8); Monocytes % (Auto) 10.7 % (0.0-7.3); Platelet Count 240 K/mm3 (140-440); Red Blood Count 4.28 M/mm3 (3.65-5.03); Red Cell Distribution Width 16.3 % (13.2-15.2)
[2020-05-27 22:08] LABS: Alanine Aminotransferase 18 units/L (7-56); Albumin 3.7 g/dL (3.9-5); BUN/Creatinine Ratio 13; Blood Urea Nitrogen 25 mg/dL (9-20); Calcium 9.3 mg/dL (8.4-10.2); Hemolysis Index 14
[2020-05-28 02:03] LABS: Bilirubin,Urine NEG (Negative); Blood,Urine NEG (Negative); Color,Urine Straw (Yellow); Protein,Urine <15 mg/dL mg/dL (Negative); Urobilinogen,Urine < 2.0 mg/dL (<2.0)
[2020-05-28 06:59] VITALS: BP 127/90
--- NOTE | 2020-05-28 07:25 | Emergency Department Report ---
ED General Adult HPI - General Chief complaint: Abdominal Pain Stated complaint: CHRONS FLARE Time Seen by Provider: 05/27/20 21:05 Source: patient Mode of arrival: Stretcher Limitations: No Limitations - History of Present Illness Initial comments: This is a 60-year-old man with history of Crohn's disease. He states he was going to get the mail and he tripped falling onto his abdomen on . On Saturday he stated that he had some diarrhea. This is resolved. He complains of abdominal pain which is mostly left lower quadrant. He states he fell onto the left side of his abdomen. He claims that the fall triggered his Crohn's. He does not believe that he suffered an injury from the fall. He did state he had some soreness of his right rick area but has been fully ambulatory. He has had no recent fever or chills. -: Gradual Location: abdomen Radiation: non-radiation Severity scale (0 -10): 0 Quality: aching Consistency: intermittent Improves with: none Worsens with: none Associated Symptoms: denies other symptoms, other (Diarrhea now resolved) Treatments Prior to Arrival: none - Related Data Home Medications Medication Instructions Recorded Confirmed Last Taken Dicyclomine [Bentyl] 10 mg PO QDAY 11/26/16 04/27/17 04/27/17 Divalproex [Anastasia Clinton] 500 mg PO QDAY 11/26/16 04/27/17 04/27/17 Famotidine [Pepcid] 20 mg PO QDAY PRN 11/26/16 04/27/17 Unknown Sucralfate [Carafate] 1 gm PO Q12H 11/26/16 04/27/17 04/27/17 Previous Rx's Medication Instructions Recorded Last Taken Type amLODIPine 5 mg PO DAILY #90 tab 04/28/16 05/18/16 Rx HYDROcodone/APAP 5-325 [[place] 1 - 2 each PO Q6HR PRN #10 tablet 05/19/16 Unknown Rx 5/325] Ciprofloxacin HCl [Ciprofloxacin 500 mg PO Q12H #14 tab 04/27/17 Unknown Rx TAB] traMADoL [Ultram] 50 mg PO Q6HR PRN #14 tablet 04/27/17 Unknown Rx Dicyclomine [Bentyl] 20 mg PO QID PRN #20 tablet 05/03/18 Unknown Rx Dicyclomine [Bentyl] 20 mg PO QID PRN #20 tablet 08/02/18 Unknown Rx Ondansetron [Zofran Odt] 4 mg PO Q8HR PRN #20 tab.rapdis 08/02/18 Unknown Rx predniSONE [Deltasone] 50 mg PO QDAY #5 tab 04/18/19 Unknown Rx Acetaminophen [Non-Aspirin Extra 500 mg PO Q6HR PRN #30 tablet 05/03/19 Unknown Rx Strength] Dicyclomine [Bentyl] 10 mg PO QID PRN #20 capsule 05/03/19 Unknown Rx Famotidine [Pepcid] 20 mg PO BID #10 tablet 05/03/19 Unknown Rx Metoclopramide [Reglan] 10 mg PO QID PRN #30 tablet 05/03/19 Unknown Rx Promethazine [Phenergan] 25 mg PO Q6HR PRN #20 tab 03/07/20 Unknown Rx Dicyclomine [Bentyl] 20 mg PO QID PRN #20 tablet 04/17/20 Unknown Rx traMADoL [Ultram 50 MG tab] 50 mg PO Q6HR PRN #14 tablet 05/28/20 Unknown Rx Allergies Allergy/AdvReac Type Severity Reaction Status Date / Time No Known Allergies Allergy Verified 04/27/17 13:51 ED Review of Systems ROS: Stated complaint: CHRONS FLARE Other details as noted in HPI Constitutional: denies: chills, fever Eyes: denies: eye pain, eye discharge, vision change ENT: denies: ear pain, throat pain Respiratory: denies: cough, shortness of breath, wheezing Cardiovascular: denies: chest pain, palpitations Endocrine: no symptoms reported Gastrointestinal: abdominal pain, diarrhea. denies: nausea Genitourinary: denies: urgency, dysuria Musculoskeletal: as per HPI, arthralgia (Chronic, rheumatoid arthritis). denies: back pain, joint swelling Skin: denies: rash, lesions Neurological: denies: headache, weakness, paresthesias Psychiatric: denies: anxiety, depression Hematological/Lymphatic: denies: easy bleeding, easy bruising ED Past Medical Hx - Past Medical History Previous Medical History?: Yes Hx Hypertension: Yes (FOR 4 MTHS) Hx Renal Disease: Yes Hx Arthritis: Yes (HANDS,KNEES) Additional medical history: crohns - Surgical History Past Surgical History?: No - Social History Smoking Status: Never Smoker Substance Use Type: Alcohol - Medications Home Medications: Home Medications Medication Instructions Recorded Confirmed Last Taken Type amLODIPine 5 mg PO DAILY #90 tab 04/28/16 04/27/17 05/18/16 Rx HYDROcodone/APAP 5-325 [[place] 1 - 2 each PO Q6HR PRN #10 tablet 05/19/16 04/27/17 Unknown Rx 5/325] Dicyclomine [Bentyl] 10 mg PO QDAY 11/26/16 04/27/17 04/27/[address] [Depakote Dr] 500 mg PO QDAY 11/26/16 04/27/17 04/27/17 History Famotidine [Pepcid] 20 mg PO QDAY PRN 11/26/16 04/27/17 Unknown History Sucralfate [Carafate] 1 gm PO Q12H 11/26/16 04/27/17 04/27/17 History Ciprofloxacin HCl [Ciprofloxacin 500 mg PO Q12H #14 tab 04/27/17 Unknown Rx TAB] traMADoL [Ultram] 50 mg PO Q6HR PRN #14 tablet 04/27/17 Unknown Rx Dicyclomine [Bentyl] 20 mg PO QID PRN #20 tablet 05/03/18 Unknown Rx Dicyclomine [Bentyl] 20 mg PO QID PRN #20 tablet 08/02/18 Unknown Rx Ondansetron [Zofran Odt] 4 mg PO Q8HR PRN #20 tab.rapdis 08/02/18 Unknown Rx predniSONE [Deltasone] 50 mg PO QDAY #5 tab 04/18/19 Unknown Rx Acetaminophen [Non-Aspirin Extra 500 mg PO Q6HR PRN #30 tablet 05/03/19 Unknown Rx Strength] Dicyclomine [Bentyl] 10 mg PO QID PRN #20 capsule 05/03/19 Unknown Rx Famotidine [Pepcid] 20 mg PO BID #10 tablet 05/03/19 Unknown Rx Metoclopramide [Reglan] 10 mg PO QID PRN #30 tablet 05/03/19 Unknown Rx Promethazine [Phenergan] 25 mg PO Q6HR PRN #20 tab 03/07/20 Unknown Rx Dicyclomine [Bentyl] 20 mg PO QID PRN #20 tablet 04/17/20 Unknown Rx traMADoL [Ultram 50 MG tab] 50 mg PO Q6HR PRN #14 tablet 05/28/20 Unknown Rx ED Physical Exam - General Limitations: No Limitations General appearance: alert, in no apparent distress - Head Head exam: Present: atraumatic, normocephalic - Eye Eye exam: Present: normal appearance. Absent: scleral icterus - ENT ENT exam: Present: mucous membranes moist - Neck Neck exam: Present: normal inspection - Respiratory Respiratory exam: Present: normal lung sounds bilaterally. Absent: respiratory distress - Cardiovascular Cardiovascular Exam: Present: regular rate, normal rhythm. 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 Absent: normal inspection (There was very mild pretibial swelling on the right but no deformity) - Back Exam Back exam: Present: normal inspection - Neurological Exam Neurological exam: Present: alert, oriented X3, CN II-XII intact, motor sensory deficit - Psychiatric Psychiatric exam: Present: normal affect, normal mood - Skin Skin exam: Present: warm, dry, intact, normal color. Absent: rash ED Course Vital Signs 05/27/20 05/27/20 05/28/20 21:09 21:12 06:50 Temperature 97.9 F 98 F Pulse Rate 91 H Respiratory 18 16 Rate Blood Pressure Blood Pressure 101/66 [Left] O2 Sat by Pulse 96 98 Oximetry 05/28/20 06:54 Temperature Pulse Rate 93 H Respiratory 15 Rate Blood Pressure 127/90 Blood Pressure [Left] O2 Sat by Pulse 98 Oximetry - Reevaluation(s) Reevaluation #1: Patient is borderline tachycardic. I have explained to him in the presence of an injury I would have to recommend that he undergo CT scanning. He states he has had too many CT scans already. I explained to him that since he had an inj ury and subsequent pain it would be necessary for me to do a scan to ferret out the cause of his abdominal pain. I explained to him that injuries within the abdomen can be potentially life-threatening. He understands this. He declines CT testing. I am not going to make him formally sign out AMA. I have strongly suggested to him to closely follow-up with his GI/primary care doctor. He should return to the emergency department for further care and evaluation obviously especially if his symptoms persist. He is in no distress at the time of my encounter. He has full mental capacity to decline further testing. 05/28/20 07:23 ED Medical Decision Making - Lab Data Result diagrams: 05/27/20 21:18 05/27/20 21:18 Critical care attestation.: If time is entered above; I have spent that time in minutes in the direct care of this critically ill patient, excluding procedure time. ED Disposition Clinical Impression: Renal insufficiency Crohn's disease Qualifiers: Gastrointestinal tract location: unspecified location Digestive disease complication type: without complication Qualified Code(s): K50.90 - Crohn's disease, unspecified, without complications Abdominal pain Qualifiers: Abdominal location: left lower quadrant Qualified Code(s): R10.32 - Left lower quadrant pain Disposition: - TO HOME OR SELFCARE Is pt being admited?: No Does the pt Need Aspirin: No Condition: Stable Instructions: Abdominal Pain, Adult, [id number], Blunt Abdominal Trauma Additional Instructions: CT scanning was recommended. However, you declined and understood the risks of undiagnosed intra-abdominal trauma/complications of Crohn's. Return to the emergency department any substantial pain. Closely follow-up with your GI speci alist and primary care physician. Prescriptions: traMADoL [Ultram 50 MG tab] 50 mg PO Q6HR PRN #14 tablet PRN Reason: Pain Referrals: CHRISTINA BARNHART MD [Primary Care Provider] - 3-5 Days Time of Disposition: 07:27
[2020-05-28] MEDS ORDERED: traMADol 50 MG TAB PO ONE (07:28)
== END 2020-05-28 07:56 | disposition home or self-care (01) ==
LOC: ED 20:23
DX: K50.90 Crohn's disease, unspecified, without complications (principal); N28.9 Disorder of kidney and ureter, unspecified; R10.32 Left lower quadrant pain; I10 Essential (primary) hypertension; M19.91 Primary osteoarthritis, unspecified site; Z79.2 Long term (current) use of antibiotics; Z79.899 Other long term (current) drug therapy
CPT/HCPCS: 36415; 80053; 81001; 83690; 85025

== ENCOUNTER 2020-08-30 19:51 | Emergency (ER) | payer MEDICAID ==
[2020-08-30 20:45] VITALS: BP 154/99
--- NOTE | 2020-08-30 20:47 | Event Note ---
ED Screening Note Date of service: 08/30/20 Time: 20:45 ED Screening Note: Pt is a 60 y/o aam with hx of crohns who present for left upper quad abd pain with n/v, pt denies fever or chills, symptoms are exacerbated by po intake , symptoms are relieved by nothing tried. This initial assessment/diagnostic orders/clinical plan/treatment(s) is/are subject to change based on patients health status, clinical progression and re- assessment by fellow clinical providers in the ED. Further treatment and workup at subsequent clinical providers discretion. Patient/guardian urged not to elope from the ED as their condition may be serious if not clinically assessed and managed. Initial orders include:
[2020-08-30 21:20] LABS: Basophils # (Auto) 0.1 K/mm3 (0.0-0.1); Basophils % (Auto) 0.8 % (0.0-1.8); Eosinophils # (Auto) 0.1 K/mm3 (0.0-0.4); Hematocrit 34.6 % (35.5-45.6); Hemoglobin 11.3 gm/dl (11.8-15.2); Lymphocytes # (Auto) 1.2 K/mm3 (1.2-5.4); Lymphocytes % (Auto) 16.3 % (13.4-35.0); Mean Corpuscular HGB Conc 33 % (32-34); Mean Corpuscular Volume 82 fl (84-94); Monocytes # (Auto) 0.9 K/mm3 (0.0-0.8); Monocytes % (Auto) 11.8 % (0.0-7.3); Platelet Count 166 K/mm3 (140-440); Red Blood Count 4.22 M/mm3 (3.65-5.03); Red Cell Distribution Width 17.7 % (13.2-15.2)
[2020-08-30 21:44] LABS: Alanine Aminotransferase 18 units/L (7-56); Albumin 3.8 g/dL (3.9-5); BUN/Creatinine Ratio 14; Blood Urea Nitrogen 25 mg/dL (9-20); Calcium 8.8 mg/dL (8.4-10.2); Hemolysis Index 12
[2020-08-30 22:36] LABS: Bacteria,Urine 1+ /HPF (Negative); Bilirubin,Urine NEG (Negative); Blood,Urine NEG (Negative); Color,Urine Straw (Yellow); Protein,Urine <15 mg/dL mg/dL (Negative); Urobilinogen,Urine < 2.0 mg/dL (<2.0)
--- NOTE | 2020-08-31 03:02 | Emergency Department Report ---
ED Abdominal Pain HPI - General Chief Complaint: Abdominal Pain Stated Complaint: ABDOMINAL PAIN Source: family Mode of arrival: Ambulatory Limitations: No Limitations - History of Present Illness Initial Comments: Pt is a 60 y/o aam with hx of crohns who present for left upper quad abd pain with n/v, pt denies fever or chills, symptoms are exacerbated by po intake , symptoms are relieved by nothing tried. MD Complaint: abdominal pain - Related Data Home Medications Medication Instructions Recorded Confirmed Last Taken Dicyclomine [Bentyl] 10 mg PO QDAY 11/26/16 04/27/17 04/27/17 Divalproex [Depakote Dr] 500 mg PO QDAY 11/26/16 04/27/17 04/27/17 Famotidine [Pepcid] 20 mg PO QDAY PRN 11/26/16 04/27/17 Unknown Sucralfate [Carafate] 1 gm PO Q12H 11/26/16 04/27/17 04/27/17 Previous Rx's Medication Instructions Recorded Last Taken Type amLODIPine 5 mg PO DAILY #90 tab 04/28/16 05/18/16 Rx HYDROcodone/APAP 5-325 [[place] 1 - 2 each PO Q6HR PRN #10 tablet 05/19/16 Unknown Rx 5/325] Ciprofloxacin HCl [Ciprofloxacin 500 mg PO Q12H #14 tab 04/27/17 Unknown Rx TAB] traMADoL [Ultram] 50 mg PO Q6HR PRN #14 tablet 04/27/17 Unknown Rx Dicyclomine [Bentyl] 20 mg PO QID PRN #20 tablet 05/03/18 Unknown Rx Dicyclomine [Bentyl] 20 mg PO QID PRN #20 tablet 08/02/18 Unknown Rx Ondansetron [Zofran Odt] 4 mg PO Q8HR PRN #20 tab.rapdis 08/02/18 Unknown Rx predniSONE [Deltasone] 50 mg PO QDAY #5 tab 04/18/19 Unknown Rx Acetaminophen [Non-Aspirin Extra 500 mg PO Q6HR PRN #30 tablet 05/03/19 Unknown Rx Strength] Dicyclomine [Bentyl] 10 mg PO QID PRN #20 capsule 05/03/19 Unknown Rx Famotidine [Pepcid] 20 mg PO BID #10 tablet 11/10/19 Unknown Rx Metoclopramide [Reglan] 10 mg PO QID PRN #30 tablet 05/03/19 Unknown Rx Promethazine [Phenergan] 25 mg PO Q6HR PRN #20 tab 03/07/20 Unknown Rx Dicyclomine [Bentyl] 20 mg PO QID PRN #20 tablet 04/17/20 Unknown Rx traMADoL [Ultram 50 MG tab] 50 mg PO Q6HR PRN #14 tablet 05/28/20 Unknown Rx traMADoL [Ultram] 50 mg PO Q6HR PRN #12 tablet 08/31/20 Unknown Rx Allergies Allergy/AdvReac Type Severity Reaction Status Date / Time No Known Allergies Allergy Verified 04/27/17 13:51 ED Review of Systems ROS: Stated complaint: ABDOMINAL PAIN Other details as noted in HPI Constitutional: denies: chills, fever Eyes: denies: eye pain, eye discharge, vision change ENT: denies: ear pain, throat pain Respiratory: denies: cough, shortness of breath, wheezing Cardiovascular: denies: chest pain, palpitations Endocrine: no symptoms reported Gastrointestinal: abdominal pain (LUQ ). denies: nausea, vomiting Genitourinary: denies: urgency, dysuria, hematuria Musculoskeletal: denies: back pain, joint swelling, arthralgia Skin: denies: rash, lesions Neurological: denies: headache, weakness, paresthesias Psychiatric: denies: anxiety, depression Hematological/Lymphatic: as per HPI ED Past Medical Hx - Past Medical History Hx Hypertension: Yes Hx Renal Disease: Yes Hx Arthritis: Yes (HANDS,KNEES) Additional medical history: crohns - Social History Smoking Status: Never Smoker - Medications Home Medications: Home Medications Medication Instructions Recorded Confirmed Last Taken Type amLODIPine 5 mg PO DAILY #90 tab 04/28/16 04/27/17 05/18/16 Rx HYDROcodone/APAP 5-325 [[place] 1 - 2 each PO Q6HR PRN #10 tablet 05/19/16 04/27/17 Unknown Rx 5/325] Dicyclomine [Bentyl] 10 mg PO QDAY 11/26/16 04/27/17 04/27/[address] [Anastasia Dr] 500 mg PO QDAY 11/26/16 04/27/17 04/27/17 History Famotidine [Pepcid] 20 mg PO QDAY PRN 11/26/16 04/27/17 Unknown History Sucralfate [Carafate] 1 gm PO Q12H 11/26/16 04/27/17 04/27/17 History Ciprofloxacin HCl [Ciprofloxacin 500 mg PO Q12H #14 tab 04/27/17 Unknown Rx TAB] traMADoL [Ultram] 50 mg PO Q6HR PRN #14 tablet 04/27/17 Unknown Rx Dicyclomine [Bentyl] 20 mg PO QID PRN #20 tablet 05/03/18 Unknown Rx Dicyclomine [Bentyl] 20 mg PO QID PRN #20 tablet 08/02/18 Unknown Rx Ondansetron [Zofran Odt] 4 mg PO Q8HR PRN #20 tab.rapdis 08/02/18 Unknown Rx predniSONE [Deltasone] 50 mg PO QDAY #5 tab 04/18/19 Unknown Rx Acetaminophen [Non-Aspirin Extra 500 mg PO Q6HR PRN #30 tablet 05/03/19 Unknown Rx Strength] Dicyclomine [Bentyl] 10 mg PO QID PRN #20 capsule 05/03/19 Unknown Rx Famotidine [Pepcid] 20 mg PO BID #10 tablet 05/03/19 Unknown Rx Metoclopramide [Reglan] 10 mg PO QID PRN #30 tablet 05/03/19 Unknown Rx Promethazine [Phenergan] 25 mg PO Q6HR PRN #20 tab 03/07/20 Unknown Rx Dicyclomine [Bentyl] 20 mg PO QID PRN #20 tablet 04/17/20 Unknown Rx traMADoL [Ultram 50 MG tab] 50 mg PO Q6HR PRN #14 tablet 05/28/20 Unknown Rx traMADoL [Ultram] 50 mg PO Q6HR PRN #12 tablet 08/31/20 Unknown Rx ED Physical Exam - General Limitations: No Limitations General appearance: alert, in no apparent distress - Head Head exam: Present: atraumatic - Eye Eye exam: Present: normal appearance, EOMI Pupils: Present: normal accommodation - ENT ENT exam: Present: mucous membranes moist - Neck Neck exam: Present: normal inspection, tenderness, full ROM - Respiratory Respiratory exam: Present: normal lung sounds bilaterally. Absent: respiratory distress, wheezes, stridor, chest wall tenderness - Cardiovascular Cardiovascular Exam: Present: regular rate, normal rhythm, normal heart sounds - GI/Abdominal GI/Abdominal exam: Present: soft, tenderness (LUQ mild tenderness, no rebound peritoneal signs ), normal bowel sounds. Absent: distended, guarding, rebound, rigid, bruit, hernia - Rectal Rectal exam: Present: deferred - Extremities Exam Extremities exam: Present: normal inspection, full ROM, normal capillary refill. Absent: tenderness - Back Exam Back exam: Present: normal inspection. Absent: tenderness, CVA tenderness (R), CVA tenderness (L) - Neurological Exam Neurological exam: Present: alert, oriented X3, CN II-XII intact, normal gait, reflexes normal. Absent: motor sensory deficit - Psychiatric Psychiatric exam: Present: normal affect, normal mood - Skin Skin exam: Present: warm, dry, intact, normal color. Absent: rash ED Course Vital Signs 08/30/20 20:44 Temperature 98.0 F Pulse Rate 96 H Respiratory 18 Rate Blood Pressure 154/99 O2 Sat by Pulse 100 Oximetry ED Medical Decision Making - Lab Data Result diagrams: 08/30/20 20:56 08/30/20 20:56 Labs 08/30/20 08/30/20 08/30/20 20:56 20:56 21:45 WBC 7.3 RBC 4.22 Hgb 11.3 L Hct 34.6 L MCV 82 L MCH 27 L MCHC 33 RDW 17.7 H Plt Count 166 Lymph % (Auto) 16.3 Hemphill % (Auto) 11.8 H Eos % (Auto) 1.0 Baso % (Auto) 0.8 Lymph # (Auto) 1.2 Hemphill # (Auto) 0.9 H Eos # (Auto) 0.1 Baso # (Auto) 0.1 Seg Neutrophils % 70.1 H Seg Neutrophils # 5.1 Sodium 139 Potassium 4.0 Chloride 104.3 Carbon Dioxide 23 Anion Gap 16 BUN 25 H Creatinine 1.8 H Estimated GFR 47 BUN/Creatinine Ratio 14 Glucose 102 H Calcium 8.8 Total Bilirubin < 0.20 AST 21 ALT 18 Alkaline Phosphatase 102 Total Protein 6.4 Albumin 3.8 L Albumin/Globulin Ratio 1.5 Lipase 29 Urine Color Straw Urine Turbidity Clear Urine pH 6.0 Ur Specific Yeoman 1.004 Urine Protein <15 mg/dl Urine Glucose (UA) Neg Urine Ketones Neg Urine Blood Neg Urine Nitrite Neg Urine Bilirubin Neg Urine Urobilinogen < 2.0 Ur Leukocyte Esterase Neg Urine WBC (Auto) 1.0 Urine RBC (Auto) 1.0 Urine Bacteria (Auto) 1+ - Medical Decision Making pt offered CT Scan declined, advised symptoms resolve, plan prn tramadol follow up with GI in 2-3 days, return to emergency if symptoms worsen, pt verbalized understanding ot same. Critical care attestation.: If time is entered above; I have spent that time in minutes in the direct care of this critically ill patient, excluding procedure time. ED Disposition Clinical Impression: Abdominal pain Qualifiers: Abdominal location: left upper quadrant Qualified Code(s): R10.12 - Left upper quadrant pain Disposition: - TO HOME OR SELFCARE Is pt being admited?: No Does the pt Need Aspirin: No Condition: Stable Instructions: Abdominal Pain, Adult, [id number] Prescriptions: traMADoL [Ultram] 50 mg PO Q6HR PRN #12 tablet PRN Reason: Pain Referrals: [facility] [Provider Group] - 3-5 Days AFIA KHAN MD [Staff Physician] - 3-5 Days Forms: Work/School Release Form(ED) Time of Disposition: 03:04
== END 2020-08-31 03:08 | disposition home or self-care (01) ==
LOC: ED 19:51
DX: R10.12 Left upper quadrant pain (principal); I10 Essential (primary) hypertension; M19.90 Unspecified osteoarthritis, unspecified site; Z79.899 Other long term (current) drug therapy
CPT/HCPCS: 36415; 80053; 81001; 83690; 85025; 99283

== ENCOUNTER 2020-10-22 22:27 | Emergency (ER) | payer MEDICAID ==
[2020-10-23 00:59] LABS: Bilirubin,Urine NEG (Negative); Blood,Urine NEG (Negative); Color,Urine Straw (Yellow); Urobilinogen,Urine < 2.0 mg/dL (<2.0); WBC,Urine < 1.0 /HPF (0.0-6.0)
[2020-10-23 00:59] LABS: Basophils % (Auto) 0.4 % (0.0-1.8); Eosinophils # (Auto) 0.1 K/mm3 (0.0-0.4); Eosinophils % (Auto) 1.4 % (0.0-4.3); Hematocrit 35.1 % (35.5-45.6); Hemoglobin 11.4 gm/dl (11.8-15.2); Mean Corpuscular HGB Conc 33 % (32-34); Mean Corpuscular Volume 83 fl (84-94); Monocytes # (Auto) 0.7 K/mm3 (0.0-0.8); Monocytes % (Auto) 13.2 % (0.0-7.3); Platelet Count 169 K/mm3 (140-440); Red Blood Count 4.25 M/mm3 (3.65-5.03); Red Cell Distribution Width 17.9 % (13.2-15.2)
[2020-10-23 01:24] LABS: Albumin 4.1 g/dL (3.9-5)
[2020-10-23] MEDS ORDERED: HYDROmorphone 1 MG/1 ML INJ IV ONE (01:42)
[2020-10-23] MEDS ORDERED: SODIUM CHLORIDE 0.9% 1000 ML 1,000 ML IV ONE (01:42)
[2020-10-23] MEDS ORDERED: ONDANSETRON 4 MG/2 ML INJ IV ONE (01:42)
--- NOTE | 2020-10-23 02:04 | Emergency Department Report ---
ED General Adult HPI - General Chief complaint: Abdominal Pain Stated complaint: ABDOMINAL PAIN Time Seen by Provider: 10/23/20 01:28 Source: patient Mode of arrival: Stretcher Limitations: No Limitations - History of Present Illness Initial comments: Patient is a 60-year-old male presents emergency room with complaints of a "Crohn's flare" that began around 10 PM. Patient states he has some left lower abdominal discomfort. He states he has nausea and had 2 episodes of vomiting. He states he had a colonoscopy with his GI doctor couple weeks ago. Patient states that he went to [facility] for the same complaints 2 days ago. It appears patient also went to [facility] on 10/18/2020 and was given a prescription for Granite at that time [facility]. He denies any fever, nausea, vomiting, diarrhea, hematochezia, hematemesis, melena, pus in the stool. He has never had to have any surgical procedures for his Crohn's disease, he has never had an abscess or fistula. He states he also has a past medical history of arthritis and hypertension. No allergies to medications. He had CT abdomen pelvis performed at this facility on 03/07/2020, 05/03/2019, 04/18/2019, 11/21/2017, 04/27/2017, 11/26/2016, 04/27/2016, all with no acute abdominal abnormalities. Severity scale (0 -10): 9 - Related Data Home Medications Medication Instructions Recorded Confirmed Last Taken Dicyclomine [Bentyl] 10 mg PO QDAY 11/26/16 04/27/17 04/27/17 Divalproex [Anastasia Clinton] 500 mg PO QDAY 11/26/16 04/27/17 04/27/17 Famotidine [Pepcid] 20 mg PO QDAY PRN 11/26/16 04/27/17 Unknown Sucralfate [Carafate] 1 gm PO Q12H 11/26/16 04/27/17 04/27/17 Previous Rx's Medication Instructions Recorded Last Taken Type amLODIPine 5 mg PO DAILY #90 tab 04/28/16 05/18/16 Rx HYDROcodone/APAP 5-325 [[place] 1 - 2 each PO Q6HR PRN #10 tablet 05/19/16 Unknown Rx 5/325] Ciprofloxacin HCl [Ciprofloxacin 500 mg PO Q12H #14 tab 04/27/17 Unknown Rx TAB] traMADoL [Ultram] 50 mg PO Q6HR PRN #14 tablet 04/27/17 Unknown Rx Dicyclomine [Bentyl] 20 mg PO QID PRN #20 tablet 05/03/18 Unknown Rx Dicyclomine [Bentyl] 20 mg PO QID PRN #20 tablet 08/02/18 Unknown Rx Ondansetron [Zofran Odt] 4 mg PO Q8HR PRN #20 tab.rapdis 08/02/18 Unknown Rx predniSONE [Deltasone] 50 mg PO QDAY #5 tab 04/18/19 Unknown Rx Acetaminophen [Non-Aspirin Extra 500 mg PO Q6HR PRN #30 tablet 05/03/19 Unknown Rx Strength] Dicyclomine [Bentyl] 10 mg PO QID PRN #20 capsule 05/03/19 Unknown Rx Famotidine [Pepcid] 20 mg PO BID #10 tablet 05/03/19 Unknown Rx Metoclopramide [Reglan] 10 mg PO QID PRN #30 tablet 05/03/19 Unknown Rx Promethazine [Phenergan] 25 mg PO Q6HR PRN #20 tab 03/07/20 Unknown Rx Dicyclomine [Bentyl] 20 mg PO QID PRN #20 tablet 04/17/20 Unknown Rx traMADoL [Ultram 50 MG tab] 50 mg PO Q6HR PRN #14 tablet 05/28/20 Unknown Rx traMADoL [Ultram] 50 mg PO Q6HR PRN #12 tablet 08/31/20 Unknown Rx Allergies Allergy/AdvReac Type Severity Reaction Status Date / Time No Known Allergies Allergy Verified 04/27/17 13:51 ED Review of Systems ROS: Stated complaint: ABDOMINAL PAIN Other details as noted in HPI Comment: All other systems reviewed and negative ED Past Medical Hx - Past Medical History Previous Medical History?: Yes Hx Hypertension: Yes Hx Renal Disease: Yes Hx Arthritis: Yes (HANDS,KNEES) Additional medical history: crohn's - Surgical History Past Surgical History?: No - Social History Smoking Status: Never Smoker - Medications Home Medications: Home Medications Medication Instructions Recorded Confirmed Last Taken Type amLODIPine 5 mg PO DAILY #90 tab 04/28/16 04/27/17 05/18/16 Rx HYDROcodone/APAP 5-325 [[place] 1 - 2 each PO Q6HR PRN #10 tablet 05/19/16 04/27/17 Unknown Rx 5/325] Dicyclomine [Bentyl] 10 mg PO QDAY 11/26/16 04/27/17 04/27/[address] [Depdiaz Dr] 500 mg PO QDAY 11/26/16 04/27/17 04/27/17 History Famotidine [Pepcid] 20 mg PO QDAY PRN 11/26/16 04/27/17 Unknown History Sucralfate [Carafate] 1 gm PO Q12H 11/26/16 04/27/17 04/27/17 History Ciprofloxacin HCl [Ciprofloxacin 500 mg PO Q12H #14 tab 04/27/17 Unknown Rx TAB] traMADoL [Ultram] 50 mg PO Q6HR PRN #14 tablet 04/27/17 Unknown Rx Dicyclomine [Bentyl] 20 mg PO QID PRN #20 tablet 05/03/18 Unknown Rx Dicyclomine [Bentyl] 20 mg PO QID PRN #20 tablet 08/02/18 Unknown Rx Ondansetron [Zofran Odt] 4 mg PO Q8HR PRN #20 tab.rapdis 08/02/18 Unknown Rx predniSONE [Deltasone] 50 mg PO QDAY #5 tab 04/18/19 Unknown Rx Acetaminophen [Non-Aspirin Extra 500 mg PO Q6HR PRN #30 tablet 05/03/19 Unknown Rx Strength] Dicyclomine [Bentyl] 10 mg PO QID PRN #20 capsule 05/03/19 Unknown Rx Famotidine [Pepcid] 20 mg PO BID #10 tablet 05/03/19 Unknown Rx Metoclopramide [Reglan] 10 mg PO QID PRN #30 tablet 05/03/19 Unknown Rx Promethazine [Phenergan] 25 mg PO Q6HR PRN #20 tab 03/07/20 Unknown Rx Dicyclomine [Bentyl] 20 mg PO QID PRN #20 tablet 04/17/20 Unknown Rx traMADoL [Ultram 50 MG tab] 50 mg PO Q6HR PRN #14 tablet 05/28/20 Unknown Rx traMADoL [Ultram] 50 mg PO Q6HR PRN #12 tablet 08/31/20 Unknown Rx ED Physical Exam - General Limitations: No Limitations General appearance: alert, in no apparent distress - Head Head exam: Present: atraumatic, normocephalic - Eye Eye exam: Present: normal appearance - ENT ENT exam: Present: mucous membranes moist - Respiratory Respiratory exam: Present: normal lung sounds bilaterally. Absent: respiratory distress, wheezes, rales, rhonchi, stridor, chest wall tenderness, accessory muscle use, decreased breath sounds, prolonged expiratory - Cardiovascular Cardiovascular Exam: Present: regular rate, normal rhythm, normal heart sounds. Absent: systolic murmur, diastolic murmur, rubs, gallop - GI/Abdominal GI/Abdominal exam: Present: soft, tenderness (mild LLQ), normal bowel sounds. Absent: distended, guarding, rebound, rigid - Neurological Exam Neurological exam: Present: alert, oriented X3 - Psychiatric Psychiatric exam: Present: normal affect, normal mood - Skin Skin exam: Present: warm, dry, intact ED Course Vital Signs 10/22/20 10/23/20 10/23/20 23:59 01:51 02:21 Temperature 98.3 F Pulse Rate 96 H Respiratory 18 16 16 Rate Blood Pressure 126/87 Blood Pressure [Left] O2 Sat by Pulse 95 Oximetry 10/23/20 03:00 Temperature 98.2 F Pulse Rate 86 Respiratory 16 Rate Blood Pressure Blood Pressure 155/86 [Left] O2 Sat by Pulse 100 Oximetry ED Medical Decision Making - Lab Data Result diagrams: 10/23/20 00:30 10/23/20 00:30 Lab Results 10/23/20 10/23/20 10/23/20 Range/Units 00:30 00:30 Unknown WBC 5.2 (4.5-11.0) K/mm3 RBC 4.25 (3.65-5.03) M/mm3 Hgb 11.4 L (11.8-15.2) gm/dl Hct 35.1 L (35.5-45.6) % MCV 83 L (84-94) fl MCH 27 L (28-32) pg MCHC 33 (32-34) % RDW 17.9 H (13.2-15.2) % Plt Count 169 (140-440) K/mm3 Lymph % (Auto) 19.0 (13.4-35.0) % Burnett % (Auto) 13.2 H (0.0-7.3) % Eos % (Auto) 1.4 (0.0-4.3) % Baso % (Auto) 0.4 (0.0-1.8) % Lymph # (Auto) 1.0 L (1.2-5.4) K/mm3 Burnett # (Auto) 0.7 (0.0-0.8) K/mm3 Eos # (Auto) 0.1 (0.0-0.4) K/mm3 Baso # (Auto) 0.0 (0.0-0.1) K/mm3 Seg Neutrophils % 66.0 (40.0-70.0) % Seg Neutrophils # 3.4 (1.8-7.7) K/mm3 Sodium 138 (137-145) mmol/L Potassium 3.8 (3.6-5.0) mmol/L Chloride 102.8 (98-107) mmol/L Carbon Dioxide 20 L (22-30) mmol/L Anion Gap 19 mmol/L BUN 30 H (9-20) mg/dL Creatinine 2.1 H (0.8-1.3) mg/dL Estimated GFR 39 ml/min BUN/Creatinine Ratio 14 % Glucose 112 H (75-100) mg/dL Calcium 9.0 (8.4-10.2) mg/dL Total Bilirubin 0.20 (0.1-1.2) mg/dL AST 24 (5-40) units/L ALT 13 (7-56) units/L Alkaline Phosphatase 107 (35-129) units/L Total Protein 6.3 (6.3-8.2) g/dL Albumin 4.1 (3.9-5) g/dL Albumin/Globulin Ratio 1.9 % Lipase 32 (13-60) units/L Urine Color Straw (Yellow) Urine Turbidity Clear (Clear) Urine pH 5.0 (5.0-7.0) Ur Specific [place] 1.009 (1.003-1.030) Urine Protein 30 mg/dl (Negative) mg/dL Urine Glucose (UA) Neg (Negative) mg/dL Urine Ketones Neg (Negative) mg/dL Urine Blood Neg (Negative) Urine Nitrite Neg (Negative) Urine Bilirubin Neg (Negative) Urine Urobilinogen < 2.0 (<2.0) mg/dL Ur Leukocyte Esterase Neg (Negative) Urine WBC (Auto) < 1.0 (0.0-6.0) /HPF Urine RBC (Auto) 1.0 (0.0-6.0) /HPF Vital Signs 10/22/20 10/23/20 10/23/20 23:59 01:51 02:21 Temperature 98.3 F Pulse Rate 96 H Respiratory 18 16 16 Rate Blood Pressure 126/87 Blood Pressure [Left] O2 Sat by Pulse 95 Oximetry 10/23/20 03:00 Temperature 98.2 F Pulse Rate 86 Respiratory 16 Rate Blood Pressure Blood Pressure 155/86 [Left] O2 Sat by Pulse 100 Oximetry - Medical Decision Making Patient is a 60-year-old male presents emergency room with complaints of a "Crohn's flare" that began around 10 PM. Patient states he has some left lower abdominal discomfort. He states he has nausea and had 2 episodes of vomiting. He states he had a colonoscopy with his GI doctor couple weeks ago. Patient states that he went to [facility] for the same complaints 2 days ago. It appears patient also went to [facility] on 10/18/2020 and was given a prescription for Granite at that time [facility]. He denies any fever, nausea, vomiting, diarrhea, hematochezia, hematemesis, melena, pus in the stool. He has never had to have any surgical procedures for his Crohn's disease, he has never had an abscess or fistula. He states he also has a past medical history of arthritis and hypertension. No allergies to medications. He had CT abdomen pelvis performed at this facility on 03/07/2020, 05/03/2019, 04/18/2019, 11/21/2017, 04/27/2017, 11/26/2016, 04/27/2016, all with no acute abdominal abnormalities. Vitals are normal. On exam patient has mild left lower quadrant tenderness outpatient, no guarding, no rebound, no rigidity, normal bowel sounds, no peritoneal signs. Patient does not have any obstructive symptoms. He has no peritoneal signs, no significant abdominal tenderness, no fever, no tachycardia, no leukocytosis, do not suspect acute clare rgent intra-abdominal pathology at this time. Patient given medications in the emergency department and symptoms improved and he was feeling much better and ready go home. Patient requested something for his acid reflux. He was able to tolerate p.o. intake without difficulty and had no episodes of vomiting in the emergency department. Given that patient had recent narcotic prescription on 10/18/2020, do not feel further narcotics are appropriate at this time. Patient will be referred to primary care doctor and GI specialist. Discussed return precautions with patient. Discussed the importance of follow-up. Advised patient Please increase your water intake. Eat a bland liquid diet and slowly advance your diet as tolerated. Follow-up with a primary care doctor. Follow- up with a GI doctor. Return to emergency room for new or worsening symptoms. Critical care attestation.: If time is entered above; I have spent that time in minutes in the direct care of this critically ill patient, excluding procedure time. ED Disposition Clinical Impression: Renal insufficiency Abdominal pain Qualifiers: Abdominal location: left lower quadrant Qualified Code(s): R10.32 - Left lower quadrant pain Disposition: - TO HOME OR SELFCARE Is pt being admited?: No Does the pt Need Aspirin: No Condition: Stable Instructions: Abdominal Pain, Adult, Crohn's Disease Additional Instructions: Please increase your water intake. Eat a bland liquid diet and slowly advance your diet as tolerated. Follow-up with a primary care doctor. Follow-up with a GI doctor. Return to emergency room for new or worsening symptoms. Referrals: PRIMARY CARE,MD [Primary Care Provider] - 2-3 Days your, GI doctor [Other] - 2-3 Days Time of Disposition: 02:06 Print Language: MOHAWK
[2020-10-23] MEDS ORDERED: ALUM-MAG HYDROXIDE-SIMETHICONE 200-200-20MG/5ML ORAL LIQD 30 ML PO ONE (02:20)
[2020-10-23] MEDS ORDERED: FAMOTIDINE 20 MG TAB PO ONE (02:20)
[2020-10-23 03:00] VITALS: BP 155/86
== END 2020-10-23 02:54 | disposition home or self-care (01) ==
LOC: ED 22:27
DX: N28.9 Disorder of kidney and ureter, unspecified (principal); R10.32 Left lower quadrant pain; I10 Essential (primary) hypertension; M19.91 Primary osteoarthritis, unspecified site; Z79.2 Long term (current) use of antibiotics; Z79.899 Other long term (current) drug therapy
CPT/HCPCS: 36415; 80053; 81001; 83690; 85025; 96361; 96374; 96375; 99284; J1170; J2405; J7030

== ENCOUNTER 2020-10-27 00:10 | Emergency (ER) | payer MEDICAID ==
[2020-10-27 01:58] LABS: Albumin 4.1 g/dL (3.9-5); Calcium 8.9 mg/dL (8.4-10.2)
[2020-10-27 02:06] LABS: Bilirubin,Urine NEG (Negative); Blood,Urine NEG (Negative); Color,Urine Straw (Yellow); Mucus,Urine FEW /HPF; Urobilinogen,Urine < 2.0 mg/dL (<2.0); WBC,Urine < 1.0 /HPF (0.0-6.0)
[2020-10-27 02:10] LABS: Basophils % (Auto) 0.4 % (0.0-1.8); Eosinophils # (Auto) 0.1 K/mm3 (0.0-0.4); Eosinophils % (Auto) 0.8 % (0.0-4.3); Hematocrit 35.3 % (35.5-45.6); Hemoglobin 11.4 gm/dl (11.8-15.2); Lymphocytes # (Auto) 1.2 K/mm3 (1.2-5.4); Lymphocytes % (Auto) 16.2 % (13.4-35.0); Mean Corpuscular HGB Conc 32 % (32-34); Mean Corpuscular Volume 82 fl (84-94); Monocytes # (Auto) 0.9 K/mm3 (0.0-0.8); Platelet Count 191 K/mm3 (140-440); Red Cell Distribution Width 18.1 % (13.2-15.2)
[2020-10-27] MEDS ORDERED: MORPHINE 4 MG/1 ML INJ IV ONE (06:06)
[2020-10-27] MEDS ORDERED: DICYCLOMINE 10 MG CAP PO ONE (06:06)
[2020-10-27] MEDS ORDERED: SODIUM CHLORIDE 0.9% 500 ML 500 ML IV ONE (06:06)
--- NOTE | 2020-10-27 06:13 | Emergency Department Report ---
HPI - General Chief Complaint: Abdominal Pain Time Seen by Provider: 10/27/20 05:56 - HPI HPI: This is a 60-year-old -[place]osotho male presents to the emergency department via EMS from home with a complaint of a 1 day history of left-sided abdominal p ain. He denies any fever, nausea, vomiting, diarrhea, dysuria, constipation. The patient has a past medical history of hypertension, chronic kidney disease and Crohn's disease. He follows with a Dr. Andersen for gastroenterology through [facility], and his PCP is a Dr. Calderon through [facility]. He says that this does feel like a Crohn's flareup except for "it has been more sharp than usual." The patient was seen here 4 days ago for similar symptoms. He has had multiple visits to both this emergency department, as well as many other [facility] emergency departments/hospitals, for his Crohn's disease. He has had multiple CT scans over the past year. The patient is aware of his chronic kidney disease but does also admit that he has been taking some ibuprofen for his abdominal pain without any relief. Currently he says it is 7 out of 10 in intensity. It worsens with certain movements and palpation. No known alleviating factors. ED Past Medical Hx - Past Medical History Hx Hypertension: Yes Hx Renal Disease: Yes Hx Arthritis: Yes (HANDS,KNEES) Additional medical history: crohn's - Surgical History Past Surgical History?: No - Social History Smoking Status: Never Smoker Substance Use Type: None - Medications Home Medications: Home Medications Medication Instructions Recorded Confirmed Last Taken Type amLODIPine 5 mg PO DAILY #90 tab 04/28/16 04/27/17 05/18/16 Rx HYDROcodone/APAP 5-325 [[place] 1 - 2 each PO Q6HR PRN #10 tablet 05/19/16 04/27/17 Unknown Rx 5/325] Dicyclomine [Bentyl] 10 mg PO QDAY 11/26/16 04/27/17 04/27/17 History Divalproex [Anastasia Clinton] 500 mg PO QDAY 11/26/16 04/27/17 04/27/17 History Famotidine [Pepcid] 20 mg PO QDAY PRN 11/26/16 04/27/17 Unknown History Sucralfate [Carafate] 1 gm PO Q12H 06/11/0704/27/17 04/27/17 History Ciprofloxacin HCl [Ciprofloxacin 500 mg PO Q12H #14 tab 04/27/17 Unknown Rx TAB] traMADoL [Ultram] 50 mg PO Q6HR PRN #14 tablet 04/27/17 Unknown Rx Dicyclomine [Bentyl] 20 mg PO QID PRN #20 tablet 05/03/18 Unknown Rx Dicyclomine [Bentyl] 20 mg PO QID PRN #20 tablet 08/02/18 Unknown Rx Ondansetron [Zofran Odt] 4 mg PO Q8HR PRN #20 tab.rapdis 08/02/18 Unknown Rx predniSONE [Deltasone] 50 mg PO QDAY #5 tab 04/18/19 Unknown Rx Acetaminophen [Non-Aspirin Extra 500 mg PO Q6HR PRN #30 tablet 05/03/19 Unknown Rx Strength] Famotidine [Pepcid] 20 mg PO BID #10 tablet 05/03/19 Unknown Rx Metoclopramide [Reglan] 10 mg PO QID PRN #30 tablet 05/03/19 Unknown Rx Promethazine [Phenergan] 25 mg PO Q6HR PRN #20 tab 03/07/20 Unknown Rx Dicyclomine [Bentyl] 20 mg PO QID PRN #20 tablet 04/17/20 Unknown Rx traMADoL [Ultram 50 MG tab] 50 mg PO Q6HR PRN #14 tablet 05/28/20 Unknown Rx traMADoL [Ultram] 50 mg PO Q6HR PRN #12 tablet 08/31/20 Unknown Rx Dicyclomine [Bentyl] 10 mg PO QID PRN #20 capsule 10/27/20 Unknown Rx ED Review of Systems ROS: Stated complaint: LEFT SIDE ABD PAIN Other details as noted in HPI Comment: All other systems reviewed and negative Constitutional: denies: chills, fever Eyes: denies: eye pain, vision change ENT: denies: ear pain, throat pain Respiratory: denies: cough, shortness of breath Cardiovascular: denies: chest pain, palpitations Gastrointestinal: abdominal pain. denies: nausea, vomiting, diarrhea, constipation Genitourinary: denies: dysuria, discharge Musculoskeletal: denies: back pain, arthralgia Skin: denies: rash, lesions Neurological: denies: headache, weakness Physical Exam - Physical Exam Vital Signs: Vital Signs 10/27/20 10/27/20 00:33 03:58 Temperature 98.7 F Pulse Rate 102 H Respiratory 18 16 Rate Blood Pressure 120/71 O2 Sat by Pulse 95 Oximetry Physical Exam: GENERAL: The patient is well-developed well-nourished. HENT: Normocephalic. Atraumatic. Patient has moist mucous membranes. EYES: Extraocular motions are intact. NECK: Supple. Trachea is midline. CHEST/LUNGS: Clear to auscultation. There is no respiratory distress noted. HEART/CARDIOVASCULAR: Regular. There is no tachycardia. There is no murmur. ABDOMEN: Abdomen is soft. Left sided abdominal tenderness to palpation. Patient has normal bowel sounds. There is no abdominal distention. SKIN: Skin is warm and dry. NEURO: The patient is awake, alert, and oriented. The patient is cooperative. The patient has no focal neurologic deficits. Normal speech. MUSCULOSKELETAL: There is no tenderness or deformity. There is no limitation range of motion. BACK: No CVA tenderness to palpation. ED Course Vital Signs 10/27/20 10/27/20 00:33 03:58 Temperature 98.7 F Pulse Rate 102 H Respiratory 18 16 Rate Blood Pressure 120/71 O2 Sat by Pulse 95 Oximetry ED Medical Decision Making - Lab Data Result diagrams: 10/27/20 00:51 10/27/20 00:51 Lab Results 10/27/20 10/27/20 10/27/20 Range/Units 00:51 00:51 Unknown WBC 7.5 (4.5-11.0) K/mm3 RBC 4.30 (3.65-5.03) M/mm3 Hgb 11.4 L (11.8-15.2) gm/dl Hct 35.3 L (35.5-45.6) % MCV 82 L (84-94) fl MCH 27 L (28-32) pg MCHC 32 (32-34) % RDW 18.1 H (13.2-15.2) % Plt Count 191 (140-440) K/mm3 Lymph % (Auto) 16.2 (13.4-35.0) % Sanders % (Auto) 12.0 H (0.0-7.3) % Eos % (Auto) 0.8 (0.0-4.3) % Baso % (Auto) 0.4 (0.0-1.8) % Lymph # (Auto) 1.2 (1.2-5.4) K/mm3 Sanders # (Auto) 0.9 H (0.0-0.8) K/mm3 Eos # (Auto) 0.1 (0.0-0.4) K/mm3 Baso # (Auto) 0.0 (0.0-0.1) K/mm3 Seg Neutrophils % 70.6 H (40.0-70.0) % Seg Neutrophils # 5.3 (1.8-7.7) K/mm3 Sodium 133 L (137-145) mmol/L Potassium 3.6 (3.6-5.0) mmol/L Chloride 98.9 (98-107) mmol/L Carbon Dioxide 19 L (22-30) mmol/L Anion Gap 19 mmol/L BUN 35 H (9-20) mg/dL Creatinine 2.1 H (0.8-1.3) mg/dL Estimated GFR 39 ml/min BUN/Creatinine Ratio 17 % Glucose 114 H (75-100) mg/dL Calcium 8.9 (8.4-10.2) mg/dL Total Bilirubin 0.30 (0.1-1.2) mg/dL AST 26 (5-40) units/L ALT 14 (7-56) units/L Alkaline Phosphatase 100 (35-129) units/L Total Protein 6.2 L (6.3-8.2) g/dL Albumin 4.1 (3.9-5) g/dL Albumin/Globulin Ratio 2.0 % Urine Color Straw (Yellow) Urine Turbidity Clear (Clear) Urine pH 6.0 (5.0-7.0) Ur Specific [place] 1.005 (1.003-1.030) Urine Protein 30 mg/dl (Negative) mg/dL Urine Glucose (UA) Neg (Negative) mg/dL Urine Ketones Neg (Negative) mg/dL Urine Blood Neg (Negative) Urine Nitrite Neg (Negative) Urine Bilirubin Neg (Negative) Urine Urobilinogen < 2.0 (<2.0) mg/dL Ur Leukocyte Esterase Neg (Negative) Urine WBC (Auto) < 1.0 (0.0-6.0) /HPF Urine RBC (Auto) 1.0 (0.0-6.0) /HPF Urine Mucus Few /HPF - Radiology Data Radiology results: image reviewed interpreted by me: Abdominal x-ray shows nonspecific nonobstructive bowel gas. No free air. - Medical Decision Making This patient presents with left-sided abdominal pain that has been going on for 1 day. He has a history of chronic and/or recurrent abdominal pains. He has had multiple CT scans of the abdomen and pelvis over the past year that have not shown any acute processes. He has a history of Crohn's disease. Patient's labs have been mostly unremarkable except for his chronic kidney disease. Abdominal x-ray shows nonspecific nonobstructive bowel gas, and no free air. Patient was given some IV fluid resuscitation and a dose of analgesia with some improvement. He says that he has good outpatient follow-up with both primary care and gastroenterology. Vital signs have been reassuring throughout his ED course including being afebrile. For all these reasons he appears safe for discharge home at this time. He will return to the emergency department with any worsening of his symptoms or with any acute distress. Critical Care Time: No Critical care attestation.: If time is entered above; I have spent that time in minutes in the direct care of this critically ill patient, excluding procedure time. 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 Return to the emergency department with any worsening of your symptoms, new or concerning symptoms not addressed during this current emergency department visit, or with any acute distress. Due to your chronic kidney disease, please avoid any NSAIDs such as Aleve, ibuprofen, naproxen, Advil. 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
--- NOTE | 2020-10-27 07:07 | XRay Report ---
ABDOMEN 2 VIEW(S) INDICATION / CLINICAL INFORMATION: Abd pain. COMPARISON: None available. FINDINGS: TUBES / LINES: None. BOWEL GAS PATTERN: No significant abnormality. FREE AIR / EXTRALUMINAL GAS: None seen. ADDITIONAL FINDINGS: No significant additional findings. IMPRESSION: 1. No significant abnormality. Signer Name: Justina Delgado MD Signed: 10/27/2020 7:03 AM Workstation Name: [id number]
[2020-10-27] MEDS ORDERED: traMADol 50 MG TAB PO ONE (07:31)
[2020-10-27 08:24] VITALS: BP 136/95
== END 2020-10-27 08:24 | disposition home or self-care (01) ==
LOC: ED 00:10
DX: I12.9 Hypertensive chronic kidney disease with stage 1 through stage 4 chronic kidney disease, or unspecified chronic kidney disease (principal); N18.9 Chronic kidney disease, unspecified; K50.90 Crohn's disease, unspecified, without complications; M19.91 Primary osteoarthritis, unspecified site; Z79.899 Other long term (current) drug therapy
CPT/HCPCS: 36415; 74019; 80053; 81001; 85025; 96361; 96374; 99284; J2270; J7040

== ENCOUNTER 2021-01-08 20:23 | Emergency (ER) | payer MEDICAID ==
[2021-01-08 23:43] VITALS: BP 115/76
[2021-01-08] MEDS ORDERED: DICYCLOMINE 20 MG TAB PO ONE (23:51)
[2021-01-08] MEDS ORDERED: ONDANSETRON 4 MG ODT TAB PO ONE (23:51)
--- NOTE | 2021-01-08 23:55 | Event Note ---
ED Screening Note Date of service: 01/08/21 Time: 23:53 ED Screening Note: Patient is a 60-year-old -Norwegian male with a history of hypertension, chronic kidney disease, Crohn's disease, chronic osteoarthritis and gouty arthropathy who presents to the ED with complaint of acute onset persistent severe left lower quadrant abdominal pain for the last 3 days, worse in the last 2 days. Patient states that the pain is constant, persistent and worse with movement. Patient denies nausea, vomiting, diarrhea, hematochezia, dizziness, syncope, chest pain, hematuria, dysuria, testicular pain, low back pain, fever, chills, cough, chest pain or shortness of breath, heavy lifting or traumatic injury. This initial assessment/diagnostic orders/clinical plan/treatment(s) is/are subject to change based on patients health status, clinical progression and re- assessment by fellow clinical providers in the ED. Further treatment and workup at subsequent clinical providers discretion. Patient/guardian urged not to elope from the ED as their condition may be serious if not clinically assessed and managed. Initial orders include: CBC, CMP, UA, lipase, CT abdomen pelvis without contrast
[2021-01-09 00:54] LABS: Basophils % (Auto) 0.5 % (0.0-1.8); Eosinophils # (Auto) 0.1 K/mm3 (0.0-0.4); Eosinophils % (Auto) 1.9 % (0.0-4.3); Hematocrit 39.5 % (35.5-45.6); Hemoglobin 12.7 gm/dl (11.8-15.2); Lymphocytes # (Auto) 1.2 K/mm3 (1.2-5.4); Mean Corpuscular HGB Conc 32 % (32-34); Mean Corpuscular Volume 85 fl (84-94); Monocytes # (Auto) 0.7 K/mm3 (0.0-0.8); Monocytes % (Auto) 15.6 % (0.0-7.3); Platelet Count 175 K/mm3 (140-440); Red Blood Count 4.66 M/mm3 (3.65-5.03); Red Cell Distribution Width 17.5 % (13.2-15.2)
[2021-01-09 01:18] LABS: Albumin 4.5 g/dL (3.9-5); Calcium 9.8 mg/dL (8.4-10.2)
[2021-01-09 01:23] LABS: Bilirubin,Urine NEG (Negative); Blood,Urine NEG (Negative); Color,Urine Yellow (Yellow); RBC,Urine < 1.0 /HPF (0.0-6.0); Urobilinogen,Urine < 2.0 mg/dL (<2.0); WBC,Urine < 1.0 /HPF (0.0-6.0)
--- NOTE | 2021-01-09 01:33 | Cat Scan Report ---
CT ABDOMEN AND PELVIS WITHOUT CONTRAST INDICATION / CLINICAL INFORMATION: LLQ Pain, h/o Crohns disease. TECHNIQUE: Axial CT images were obtained through the abdomen and pelvis without IV contrast. All CT scans at this location are performed using CT dose reduction for ALARA by means of automated exposure control. COMPARISON: CT scan dated 03/07/2020 FINDINGS: LOWER CHEST: No significant abnormality. LIVER: No significant abnormality. GALLBLADDER: No significant abnormality. BILE DUCTS: No significant abnormality. PANCREAS: No significant abnormality. SPLEEN: No significant abnormality. ADRENALS: No significant abnormality. RIGHT KIDNEY / URETER: No significant abnormality. LEFT KIDNEY / URETER: No significant abnormality. STOMACH / SMALL BOWEL: No significant abnormality. COLON: No significant abnormality. APPENDIX: No significant abnormality. PERITONEUM: No free fluid. No free air. No fluid collection. LYMPH NODES: No significant adenopathy. AORTA / ARTERIES: No significant abnormality. IVC / VEINS: No significant abnormality. URINARY BLADDER: No significant abnormality. REPRODUCTIVE ORGANS: No significant abnormality. ADDITIONAL FINDINGS: None. SKELETAL SYSTEM: No acute abnormality IMPRESSION: 1. There is no obstruction, inflammation, or free air. There are no abnormal fluid collections. The a ppendix is unremarkable. Signer Name: David Elizabeth MD Signed: 01/09/2021 1:29 AM Workstation Name: [id number]
[2021-01-09] MEDS ORDERED: levoFLOXacin 500 MG TAB PO ONE (01:53)
[2021-01-09] MEDS ORDERED: traMADol 50 MG TAB PO ONE (01:53)
[2021-01-09] MEDS ORDERED: metroNIDAZOLE 500 MG TAB PO ONE (01:53)
--- NOTE | 2021-01-09 01:58 | Emergency Department Report ---
ED Abdominal Pain HPI - General Chief Complaint: Abdominal Pain Stated Complaint: ABD PAIN Source: patient Mode of arrival: Ambulatory Limitations: No Limitations - History of Present Illness Initial Comments: Patient is a 60-year-old -[place] male with a history of hypertension, chronic kidney disease, Crohn's disease, chronic osteoarthritis and gouty arthropathy who presents to the ED with complaint of acute onset persistent severe left lower quadrant abdominal pain for the last 3 days, worse in the last 2 days. Patient states that the pain is constant, persistent and worse with movement. Patient denies nausea, vomiting, diarrhea, hematochezia, dizziness, syncope, chest pain, hematuria, dysuria, testicular pain, low back pain, fever, chills, cough, chest pain or shortness of breath, heavy lifting or traumatic injury. MD Complaint: abdominal pain -: Sudden, days(s) (3) Location: LLQ (Left lower quadrant pain) Radiation: none Migration to: LLQ Severity: severe Severity scale (0 -10): 7 Quality: aching, sharp Consistency: constant Improves With: nothing Worsens With: nothing Context: other (History of Crohn's disease) Associated Symptoms: denies other symptoms. denies: nausea, vomiting, diarrhea, fever, chills, constipation, dysuria, hematemesis, hematochezia, melena, hematuria, anorexia, syncope - Related Data Home Medications Medication Instructions Recorded Confirmed Last Taken Dicyclomine [Bentyl] 10 mg PO QDAY 11/26/16 04/27/17 04/27/[address] [Depakote Dr] 500 mg PO QDAY 11/26/16 04/27/17 04/27/17 Famotidine [Pepcid] 20 mg PO QDAY PRN 11/26/16 04/27/17 Unknown Sucralfate [Carafate] 1 gm PO Q12H 11/26/16 04/27/17 04/27/17 Previous Rx's Medication Instructions Recorded Last Taken Type amLODIPine 5 mg PO DAILY #90 tab 04/28/16 05/18/16 Rx HYDROcodone/APAP 5-325 [[place] 1 - 2 each PO Q6HR PRN #10 tablet 05/19/16 Unknown Rx 5/325] Ciprofloxacin HCl [Ciprofloxacin 500 mg PO Q12H #14 tab 04/27/17 Unknown Rx TAB] traMADoL [Ultram] 50 mg PO Q6HR PRN #14 tablet 04/27/17 Unknown Rx Dicyclomine [Bentyl] 20 mg PO QID PRN #20 tablet 05/03/18 Unknown Rx Dicyclomine [Bentyl] 20 mg PO QID PRN #20 tablet 08/02/18 Unknown Rx Ondansetron [Zofran Odt] 4 mg PO Q8HR PRN #20 tab.rapdis 08/02/18 Unknown Rx predniSONE [Deltasone] 50 mg PO QDAY #5 tab 04/18/19 Unknown Rx Acetaminophen [Non-Aspirin Extra 500 mg PO Q6HR PRN #30 tablet 05/03/19 Unknown Rx Strength] Famotidine [Pepcid] 20 mg PO BID #10 tablet 05/03/19 Unknown Rx Metoclopramide [Reglan] 10 mg PO QID PRN #30 tablet 05/03/19 Unknown Rx Promethazine [Phenergan] 25 mg PO Q6HR PRN #20 tab 03/07/20 Unknown Rx Dicyclomine [Bentyl] 20 mg PO QID PRN #20 tablet 04/17/20 Unknown Rx traMADoL [Ultram 50 MG tab] 50 mg PO Q6HR PRN #14 tablet 05/28/20 Unknown Rx traMADoL [Ultram] 50 mg PO Q6HR PRN #12 tablet 08/31/20 Unknown Rx Dicyclomine [Bentyl] 10 mg PO QID PRN #20 capsule 10/27/20 Unknown Rx Ciprofloxacin HCl 500 mg PO Q12H #20 tablet 01/09/21 Unknown Rx Dicyclomine [Bentyl] 20 mg PO Q6H PRN #30 tablet 01/09/21 Unknown Rx Ondansetron [Zofran Odt] 4 mg PO Q6HR PRN #20 tab.rapdis 01/09/21 Unknown Rx metroNIDAZOLE [Flagyl] 500 mg PO Q8HR #30 tablet 01/09/21 Unknown Rx traMADoL [Ultram] 50 mg PO Q6HR PRN #12 tablet 01/09/21 Unknown Rx Allergies Allergy/AdvReac Type Severity Reaction Status Date / Time No Known Allergies Allergy Verified 04/27/17 13:51 ED Review of Systems ROS: Stated complaint: ABD PAIN Other details as noted in HPI Constitutional: denies: chills, fever Eyes: denies: eye pain, eye discharge, vision change ENT: denies: ear pain, throat pain Respiratory: denies: cough, shortness of breath, wheezing Cardiovascular: denies: chest pain, palpitations Endocrine: no symptoms reported Gastrointestinal: abdominal pain (Left lower quadrant pain). denies: nausea, vomiting, diarrhea, constipation, hematemesis, melena, hematochezia Genitourinary: denies: urgency, dysuria Musculoskeletal: denies: back pain, joint swelling, arthralgia Skin: denies: rash, lesions Neurological: denies: headache, weakness, paresthesias Psychiatric: denies: anxiety, depression Hematological/Lymphatic: denies: easy bleeding, easy bruising ED Past Medical Hx - Past Medical History Hx Hypertension: Yes Hx Renal Disease: Yes Hx Arthritis: Yes (HANDS,KNEES) Additional medical history: crohn's - Social History Smoking Status: Never Smoker Substance Use Type: None - Medications Home Medications: Home Medications Medication Instructions Recorded Confirmed Last Taken Type amLODIPine 5 mg PO DAILY #90 tab 04/28/16 04/27/17 05/18/16 Rx HYDROcodone/APAP 5-325 [[place] 1 - 2 each PO Q6HR PRN #10 tablet 05/19/16 04/27/17 Unknown Rx 5/325] Dicyclomine [Bentyl] 10 mg PO QDAY 11/26/16 04/27/17 04/27/17 History Divalproex [Anastasia Clinton] 500 mg PO QDAY 11/26/16 04/27/17 04/27/17 History Famotidine [Pepcid] 20 mg PO QDAY PRN 11/26/16 04/27/17 Unknown History Sucralfate [Carafate] 1 gm PO Q12H 11/26/16 04/27/17 04/27/17 History Ciprofloxacin HCl [Ciprofloxacin 500 mg PO Q12H #14 tab 04/27/17 Unknown Rx TAB] traMADoL [Ultram] 50 mg PO Q6HR PRN #14 tablet 04/27/17 Unknown Rx Dicyclomine [Bentyl] 20 mg PO QID PRN #20 tablet 05/03/18 Unknown Rx Dicyclomine [Bentyl] 20 mg PO QID PRN #20 tablet 08/02/18 Unknown Rx Ondansetron [Zofran Odt] 4 mg PO Q8HR PRN #20 tab.rapdis 08/02/18 Unknown Rx predniSONE [Deltasone] 50 mg PO QDAY #5 tab 04/18/19 Unknown Rx Acetaminophen [Non-Aspirin Extra 500 mg PO Q6HR PRN #30 tablet 05/03/19 Unknown Rx Strength] Famotidine [Pepcid] 20 mg PO BID #10 tablet 05/03/19 Unknown Rx Metoclopramide [Reglan] 10 mg PO QID PRN #30 tablet 05/03/19 Unknown Rx Promethazine [Phenergan] 25 mg PO Q6HR PRN #20 tab 03/07/20 Unknown Rx Dicyclomine [Bentyl] 20 mg PO QID PRN #20 tablet 04/17/20 Unknown Rx traMADoL [Ultram 50 MG tab] 50 mg PO Q6HR PRN #14 tablet 05/28/20 Unknown Rx traMADoL [Ultram] 50 mg PO Q6HR PRN #12 tablet 08/31/20 Unknown Rx Dicyclomine [Bentyl] 10 mg PO QID PRN #20 capsule 10/27/20 Unknown Rx Ciprofloxacin HCl 500 mg PO Q12H #20 tablet 01/09/21 Unknown Rx Dicyclomine [Bentyl] 20 mg PO Q6H PRN #30 tablet 01/09/21 Unknown Rx Ondansetron [Zofran Odt] 4 mg PO Q6HR PRN #20 tab.rapdis 01/09/21 Unknown Rx metroNIDAZOLE [Flagyl] 500 mg PO Q8HR #30 tablet 01/09/21 Unknown Rx traMADoL [Ultram] 50 mg PO Q6HR PRN #12 tablet 01/09/21 Unknown Rx ED Physical Exam - General Limitations: No Limitations General appearance: alert, in no apparent distress - Head Head exam: Present: atraumatic, normocephalic, normal inspection - Eye Eye exam: Present: normal appearance, PERRL, EOMI Pupils: Present: normal accommodation - ENT ENT exam: Present: normal exam, normal orophraynx, mucous membranes moist, TM's normal bilaterally, normal external ear exam - Neck Neck exam: Present: normal inspection, full ROM - Respiratory Respiratory exam: Present: normal lung sounds bilaterally. Absent: respiratory distress, wheezes, chest wall tenderness, accessory muscle use, decreased breath sounds - Cardiovascular Cardiovascular Exam: Present: regular rate, normal rhythm, normal heart sounds. Absent: systolic murmur, diastolic murmur, rubs, gallop - GI/Abdominal GI/Abdominal exam: Present: soft, tenderness (Palpable left lower quadrant tenderness), normal bowel sounds. Absent: guarding, rebound, hyperactive bowel sounds, hypoactive bowel sounds, organomegaly - Extremities Exam Extremities exam: Present: normal inspection, full ROM, normal capillary refill. Absent: tenderness, pedal edema, joint swelling - Back Exam Back exam: Present: normal inspection, full ROM. Absent: tenderness, CVA tenderness (R), CVA tenderness (L), muscle spasm, paraspinal tenderness, verte bral tenderness, rash noted - Neurological Exam Neurological exam: Present: alert, oriented X3, CN II-XII intact, normal gait, reflexes normal - Psychiatric Psychiatric exam: Present: normal affect, normal mood - Skin Skin exam: Present: warm, dry, intact, normal color. Absent: rash ED Course Vital Signs 01/08/21 23:40 Temperature 98.0 F Pulse Rate 72 Respiratory 16 Rate Blood Pressure 115/76 [Left] O2 Sat by Pulse 100 Oximetry ED Medical Decision Making - Lab Data Result diagrams: 01/09/21 00:04 01/09/21 00:04 - Radiology Data Radiology results: report reviewed, [place] [address] Cat Scan Report Signed Patient: JAGJIT ANN MR#: [id number] : 1960 Acct:[id number] Age/Sex: 60 / M ADM Date: 01/08/21 Loc: ED Attending Dr: Ordering Physician: JOHANN VOSS Date of Service: 01/08/21 Procedure(s): CT abdomen pelvis wo con Accession Number(s): [id number] cc: JOHANN VOSS CT ABDOMEN AND PELVIS WITHOUT CONTRAST INDICATION / CLINICAL INFORMATION: LLQ Pain, h/o Crohns disease. TECHNIQUE: Axial CT images were obtained through the abdomen and pelvis without IV contrast. All CT scans at this location are performed using CT dose reduction for ALARA by means of automated exposure control. COMPARISON: CT scan dated 03/07/2020 FINDINGS: LOWER CHEST: No significant abnormality. LIVER: No significant abnormality. GALLBLADDER: No significant abnormality. BILE DUCTS: No significant abnormality. PANCREAS: No significant abnormality. SPLEEN: No significant abnormality. ADRENALS: No significant abnormality. RIGHT KIDNEY / URETER: No significant abnormality. LEFT KIDNEY / URETER: No significant abnormality. STOMACH / SMALL BOWEL: No significant abnormality. COLON: No significant abnormality. APPENDIX: No significant abnormality. PERITONEUM: No free fluid. No free air. No fluid collection. LYMPH NODES: No significant adenopathy. AORTA / ARTERIES: No significant abnormality. IVC / VEINS: No significant abnormality. URINARY BLADDER: No significant abnormality. REPRODUCTIVE ORGANS: No significant abnormality. ADDITIONAL FINDINGS: None. SKELETAL SYSTEM: No acute abnormality IMPRESSION: 1. There is no obstruction, inflammation, or free air. There are no abnormal fluid collections. The appendix is unremarkable. Signer Name: David Elizabeth MD Signed: 01/09/2021 1:29 AM Workstation Name: [id number] Transcribed By: Dictated By: David Elizabeth MD Electronically Authenticated By: David Elizabeth MD Signed Date/Time: 01/09/21128 DD/ 3 TD/TT: - Medical Decision Making This is a 60-year-old -[place] male with a history of hypertension, chronic kidney disease, Crohn's disease, chronic osteoarthritis and gouty arthropathy who presents to the ED with complaint of acute onset persistent severe left lower quadrant abdominal pain for the last 3 days, worse in the last 2 days. Patient states that the pain is constant, persistent and worse with movement. In the ED, patient is alert and oriented x3 and is not in any distress. All lab test results were reviewed and are all nonactionable. Abdomen pelvis CT scan without contrast showed no acute abnormalities, no sign of inflammation, constipation and or appendicitis. Patient was treated for pain in the ED and also given empirical antibiotics for suspected Crohn's or diverticulitis. Patient was discharged home on antibiotics Flagyl and ciprofloxacin as well as pain medication and advised to follow-up with his primary care physician in 5 to 7 days for reevaluation. Patient is advised return to the ED immediately if symptoms get worse. - Differential Diagnosis Diverticulitis; colitis; Crohn's disease; kidney stones; UTI; SBO; Constipa Critical care attestation.: If time is entered above; I have spent that time in minutes in the direct care of this critically ill patient, excluding procedure time. ED Disposition Clinical Impression: Abdominal pain, left lower quadrant Disposition: DC-01 TO HOME OR SELFCARE Is pt being admited?: No Does the pt Need Aspirin: No Condition: Stable Instructions: Abdominal Pain, Adult, [id number] Additional Instructions: All lab test results were reviewed and are all nonactionable. The abdomen pelvis CT scan without contrast showed no acute abnormalities. Given your history of Crohn's disease and the symptoms you have been experiencing, you are advised to take the antibiotics for suspected infection that may have not been identified on CT scan without contrast. Therefore take medications with food, drink plenty of fluids and follow-up with your primary care physician in 5 to 7 days for reevaluation. Return to the ED immediately if symptoms get worse. Prescriptions: Dicyclomine [Bentyl] 20 mg PO Q6H PRN #30 tablet PRN Reason: Abdominal pain Ciprofloxacin HCl 500 mg PO Q12H #20 tablet metroNIDAZOLE [Flagyl] 500 mg PO Q8HR #30 tablet traMADoL [Ultram] 50 mg PO Q6HR PRN #12 tablet PRN Reason: Pain Ondansetron [Zofran Odt] 4 mg PO Q6HR PRN #20 tab.rapdis PRN Reason: Nausea Referrals: [facility] [Provider Group] - 3-5 Days Time of Disposition: 02:00 Print Language: [id number]
== END 2021-01-09 02:30 | disposition home or self-care (01) ==
LOC: ED 20:23
DX: R10.32 Left lower quadrant pain (principal); M19.90 Unspecified osteoarthritis, unspecified site; I12.9 Hypertensive chronic kidney disease with stage 1 through stage 4 chronic kidney disease, or unspecified chronic kidney disease; N18.9 Chronic kidney disease, unspecified; Z79.899 Other long term (current) drug therapy
CPT/HCPCS: 36415; 74176; 80053; 81001; 83690; 85025; Q0162

== ENCOUNTER 2021-02-02 13:43 | Emergency (ER) | payer MEDICAID ==
[2021-02-02 17:14] VITALS: BP 145/98
--- NOTE | 2021-02-02 19:34 | Emergency Department Report ---
ED General Adult HPI - General Chief complaint: Nausea/Vomiting/Diarrhea Stated complaint: NAUSEA/VOMITING Time Seen by Provider: 02/02/21 19:29 Source: patient, EMS Mode of arrival: Ambulatory Limitations: No Limitations - History of Present Illness Initial comments: 60-year-old male patient presents to the emergency department with complaints of abdominal pain starting yesterday. Patient states the pain is localized to his left lower quadrant. Yesterday, he experienced 1 episode of rectal bleeding. He has not noticed any rectal bleeding today. States he has noticed rectal bleeding intermittently on prior occasions and has been evaluated by a ramirez roenterologist, but cannot recall his diagnosis. His last colonoscopy was last year. The colonoscopy was reportedly normal. Consumes alcohol occasionally. Patient is not anticoagulated. Denies fever, chills, nausea, vomiting, melena, urinary symptoms. Denies all other complaints at this time. - Related Data Home Medications Medication Instructions Recorded Confirmed Last Taken Dicyclomine [Bentyl] 10 mg PO QDAY 11/26/16 04/27/17 04/27/17 Divalproex [Anastasia Clinton] 500 mg PO QDAY 11/26/16 04/27/17 04/27/17 Famotidine [Pepcid] 20 mg PO QDAY PRN 11/26/16 04/27/17 Unknown Sucralfate [Carafate] 1 gm PO Q12H 11/26/16 04/27/17 04/27/17 Previous Rx's Medication Instructions Recorded Last Taken Type amLODIPine 5 mg PO DAILY #90 tab 04/28/16 05/18/16 Rx HYDROcodone/APAP 5-325 [[place] 1 - 2 each PO Q6HR PRN #10 tablet 05/19/16 Unknown Rx 5/325] Ciprofloxacin HCl [Ciprofloxacin 500 mg PO Q12H #14 tab 04/27/17 Unknown Rx TAB] traMADoL [Ultram] 50 mg PO Q6HR PRN #14 tablet 04/27/17 Unknown Rx Dicyclomine [Bentyl] 20 mg PO QID PRN #20 tablet 05/03/18 Unknown Rx Dicyclomine [Bentyl] 20 mg PO QID PRN #20 tablet 08/02/18 Unknown Rx Ondansetron [Zofran Odt] 4 mg PO Q8HR PRN #20 tab.rapdis 08/02/18 Unknown Rx predniSONE [Deltasone] 50 mg PO QDAY #5 tab 04/18/19 Unknown Rx Acetaminophen [Non-Aspirin Extra 500 mg PO Q6HR PRN #30 tablet 05/03/19 Unknown Rx Strength] Famotidine [Pepcid] 20 mg PO BID #10 tablet 05/03/19 Unknown Rx Metoclopramide [Reglan] 10 mg PO QID PRN #30 tablet 05/03/19 Unknown Rx Promethazine [Phenergan] 25 mg PO Q6HR PRN #20 tab 03/07/20 Unknown Rx Dicyclomine [Bentyl] 20 mg PO QID PRN #20 tablet 04/17/20 Unknown Rx traMADoL [Ultram 50 MG tab] 50 mg PO Q6HR PRN #14 tablet 05/28/20 Unknown Rx traMADoL [Ultram] 50 mg PO Q6HR PRN #12 tablet 08/31/20 Unknown Rx Dicyclomine [Bentyl] 10 mg PO QID PRN #20 capsule 10/27/20 Unknown Rx Ciprofloxacin HCl 500 mg PO Q12H #20 tablet 01/09/21 Unknown Rx Dicyclomine [Bentyl] 20 mg PO Q6H PRN #30 tablet 01/09/21 Unknown Rx Ondansetron [Zofran Odt] 4 mg PO Q6HR PRN #20 tab.rapdis 01/09/21 Unknown Rx metroNIDAZOLE [Flagyl] 500 mg PO Q8HR #30 tablet 01/09/21 Unknown Rx traMADoL [Ultram] 50 mg PO Q6HR PRN #12 tablet 01/09/21 Unknown Rx Dicyclomine [Bentyl] 20 mg PO QID #20 tablet 02/02/21 Unknown Rx Allergies Allergy/AdvReac Type Severity Reaction Status Date / Time No Known Allergies Allergy Verified 02/02/21 17:05 ED Review of Systems ROS: Stated complaint: NAUSEA/VOMITING Other details as noted in HPI Other: GENERAL: Negative for fever, chills, weight change, anorexia, fatigue. ENT: Negative for ear pain, difficulty hearing, sore throat, nasal congestion, epistaxis. CARDIOVASCULAR: Negative for chest pain, palpitations, lower extremity swelling. PULMONARY: Negative for cough, dyspnea, wheezing, orthopnea, cyanosis. GASTROINTESTINAL: Positive for abdominal pain and rectal bleeding. MUSCULOSKELETAL: Negative for joint pain, joint swelling, myalgias, back pain, neck pain. NEUROLOGICAL: Negative for headache, seizure, syncope, paresthesias, weakness. INTEGUMENTARY: Negative for erythema, rash, diaphoresis, laceration, ecchymosis. HEMATOLOGICAL: Negative for hemoptysis, hematemesis, hematochezia, hematuria. PSYCHIATRIC: Negative for hallucinations, suicidal ideation, homicidal ideation, anxiety, depression. ED Past Medical Hx - Past Medical History Hx Hypertension: Yes Hx Renal Disease: Yes Hx Arthritis: Yes (HANDS,KNEES) Additional medical history: crohn's - Surgical History Past Surgical History?: No - Social History Smoking Status: Never Smoker Substance Use Type: None - Medications Home Medications: Home Medications Medication Instructions Recorded Confirmed Last Taken Type amLODIPine 5 mg PO DAILY #90 tab 04/28/16 04/27/17 05/18/16 Rx HYDROcodone/APAP 5-325 [[place] 1 - 2 each PO Q6HR PRN #10 tablet 05/19/16 04/27/17 Unknown Rx 5/325] Dicyclomine [Bentyl] 10 mg PO QDAY 11/26/16 04/27/17 04/27/[address] [Depakote Dr] 500 mg PO QDAY 11/26/16 04/27/17 04/27/17 History Famotidine [Pepcid] 20 mg PO QDAY PRN 11/26/16 04/27/17 Unknown History Sucralfate [Carafate] 1 gm PO Q12H 11/26/16 04/27/17 04/27/17 History Ciprofloxacin HCl [Ciprofloxacin 500 mg PO Q12H #14 tab 04/27/17 Unknown Rx TAB] traMADoL [Ultram] 50 mg PO Q6HR PRN #14 tablet 04/27/17 Unknown Rx Dicyclomine [Bentyl] 20 mg PO QID PRN #20 tablet 05/03/18 Unknown Rx Dicyclomine [Bentyl] 20 mg PO QID PRN #20 tablet 08/02/18 Unknown Rx Ondansetron [Zofran Odt] 4 mg PO Q8HR PRN #20 tab.rapdis 08/02/18 Unknown Rx predniSONE [Deltasone] 50 mg PO QDAY #5 tab 04/18/19 Unknown Rx Acetaminophen [Non-Aspirin Extra 500 mg PO Q6HR PRN #30 tablet 05/03/19 Unknown Rx Strength] Famotidine [Pepcid] 20 mg PO BID #10 tablet 05/03/19 Unknown Rx Metoclopramide [Reglan] 10 mg PO QID PRN #30 tablet 05/03/19 Unknown Rx Promethazine [Phenergan] 25 mg PO Q6HR PRN #20 tab 03/07/20 Unknown Rx Dicyclomine [Bentyl] 20 mg PO QID PRN #20 tablet 04/17/20 Unknown Rx traMADoL [Ultram 50 MG tab] 50 mg PO Q6HR PRN #14 tablet 05/28/20 Unknown Rx traMADoL [Ultram] 50 mg PO Q6HR PRN #12 tablet 08/31/20 Unknown Rx Dicyclomine [Bentyl] 10 mg PO QID PRN #20 capsule 10/27/20 Unknown Rx Ciprofloxacin HCl 500 mg PO Q12H #20 tablet 01/09/21 Unknown Rx Dicyclomine [Bentyl] 20 mg PO Q6H PRN #30 tablet 01/09/21 Unknown Rx Ondansetron [Zofran Odt] 4 mg PO Q6HR PRN #20 tab.rapdis 01/09/21 Unknown Rx metroNIDAZOLE [Flagyl] 500 mg PO Q8HR #30 tablet 01/09/21 Unknown Rx traMADoL [Ultram] 50 mg PO Q6HR PRN #12 tablet 01/09/21 Unknown Rx Dicyclomine [Bentyl] 20 mg PO QID #20 tablet 02/02/21 Unknown Rx ED Physical Exam - General Limitations: No Limitations - Other Other exam information: General: Awake and alert. No acute distress. Head: Atraumatic, normocephalic. Eyes: EOMI. Pupils are equal and round. Normal sclera and conjunctiva. ENT: Oral mucosa is moist. Normal pharyngeal exam. Neck: Supple. No lymphadenopathy. Pulmonary: No respiratory distress. Clear to auscultation bilaterally. Cardiac: Regular rate and rhythm. Pulses are palpable and equal bilaterally. No lower extremity cyanosis or edema. Skin: Warm and dry. No rashes. Abdomen: Soft, non-tender, non-protuberant. No guarding, rigidity, or rebound. Bowel sounds are normal. No organomegaly or masses noted. 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 Soft brown stool present in the rectal vault. No hemorrhoids. Good rectal tone. Hemoccult sample obtained and sent to laboratory for analysis. Back: Normal alignment. No CVA tenderness. Extremities: Symmetrical. Full range of motion intact. Neurological: Alert and oriented, appropriately interactive, no focal deficits. Psych: Cooperative. Appropriate mood and affect. Speech is evenly metered. Thoughts are logically construed. ED Course Vital Signs 02/02/21 17:13 Temperature 98.1 F Pulse Rate 85 Respiratory 20 Rate Blood Pressure 145/98 O2 Sat by Pulse 99 Oximetry ED Medical Decision Making - Lab Data Result diagrams: 02/02/21 19:43 02/02/21 19:43 - Radiology Data Institution [facility] Approval Date 2021-02-02 21:03:37 Other Patient ID My Comment(s) Study Comments [facility] [address] [place] [address] Cat Scan Report Signed Patient: JAGJIT ANN MR#: [id number] : 1960 Acct:[id number] Age/Sex: 60 / M ADM Date: 02/02/21 Loc: ED Attending Dr: Ordering Physician: JOHANN SUAZO Date of Service: 02/02/21 Procedure(s): CT abdomen pelvis w con Accession Number(s): [id number] cc: JOHANN SUAZO CT ABDOMEN AND PELVIS WITH CONTRAST INDICATION: LLQ abdominal pain/rectal bleeding. TECHNIQUE: Axial CT images were obtained through the abdomen and pelvis after 100 cc IV contrast. All CT scans at this location are performed using CT dose reduction for ALARA by means of automated exposure control. COMPARISON: CT abdomen pelvis 01/09/2021 FINDINGS: LOWER CHEST: No significant abnormality. LIVER: No significant abnormality. GALLBLADDER: No significant abnormality. BILE DUCTS: No significant abnormality. PANCREAS: No significant abnormality. SPLEEN: No significant abnormality. ADRENALS: No significant abnormality. RIGHT KIDNEY and URETER: No significant abnormality. LEFT KIDNEY and URETER: No significant abnormality. STOMACH and SMALL BOWEL: No significant abnormality. COLON: No significant abnormality. APPENDIX: Normal. PERITONEUM: No free fluid. No free air. No fluid collection. LYMPH NODES: No significant adenopathy. AORTA and ARTERIES: No significant abnormality. IVC and VEINS: No significant abnormality. URINARY BLADDER: No significant abnormality. REPRODUCTIVE ORGANS: No significant abnormality. ADDITIONAL FINDINGS: None. SKELETAL SYSTEM: Erosive facet arthropathy L5-S1 IMPRESSION: 1. No significant abnormality. Signer Name: Behzad Stubbs MD Signed: 02/02/2021 8:57 PM Workstation Name: [id number] Transcribed By: TL Dictated By: Behzad Stubbs MD Electronically Authenticated By: Behzad Stubbs MD Signed Date/Time: 02/02/212056 DD/ 53 TD/TT: - Medical Decision Making Differential diagnosis including but not limited to: bowel obstruction, bowel perforation, diverticulitis, intra-abdominal abscess, aortic aneurysm/dissection, hernia, volvulus On reevaluation, patient remains stable. Repeat abdominal exam is benign. Labs unremarkable. Renal function is consistent with baseline. CT of the abdomen/pelvis without acute process. Stool Hemoccult is negative. He is afebrile, hemodynamically stable, tolerating oral intake, no distress. No clinical indication for further diagnostic work-up on an emergent basis at this time. Patient will be discharged home with appropriate symptomatic treatment and referred to [facility] for close outpatient follow-up. Patient expressed understanding and is agreeable to plan of care. Strict return precautions provided. Repeat exam is unremarkable and benign. History, exam, diagnostic testing, and current condition do not suggest worrisome pathology to warrant further testing, continued ED treatment, admission, or surgical evaluation at this point. Given the low probability of a significant medical illness, it would be more likely to result in harm than benefit to perform further testing at this stage. Discussed findings, presumptive diagnosis, need for follow-up and specific signs/symptoms that should prompt immediate return to the emergency department. Instructions were explained in detail to the patient in addition to giving written discharge information. Patient expressed understanding and was given the opportunity to ask questions, all of which were satisfactorily answered prior to discharge home. Critical care attestation.: If time is entered above; I have spent that time in minutes in the direct care of this critically ill patient, excluding procedure time. ED Disposition Clinical Impression: Nonspecific abdominal pain Disposition: HOME / SELF CARE / HOMELESS Is pt being admited?: No Does the pt Need Aspirin: No Condition: Stable Instructions: Abdominal Pain, Adult Additional Instructions: Take Tylenol every 4 hours as needed for pain. Take Bentyl as directed for intestinal discomfort. Rest. Drink plenty of fluids. Follow-up with [facility] this week. Call tomorrow to schedule an appointment. See referral information below. Return to the emergency department immediately for new or worsening symptoms. Specifically, return to the emergency department immediately for fever, worsening pain, vomiting, black/bloody stools, dehydration, chest pain, dizziness, lightheadedness, skin color changes, or any other concerns. Prescriptions: Dicyclomine [Bentyl] 20 mg PO QID #20 tablet Referrals: [facility] [Provider Group] - 3-5 Days Time of Disposition: 21:39
[2021-02-02 20:08] LABS: Basophils % (Auto) 0.5 % (0.0-1.8); Eosinophils # (Auto) 0.1 K/mm3 (0.0-0.4); Eosinophils % (Auto) 0.9 % (0.0-4.3); Hematocrit 40.7 % (35.5-45.6); Hemoglobin 13.3 gm/dl (11.8-15.2); Lymphocytes # (Auto) 1.2 K/mm3 (1.2-5.4); Lymphocytes % (Auto) 17.6 % (13.4-35.0); Mean Corpuscular HGB Conc 33 % (32-34); Mean Corpuscular Volume 86 fl (84-94); Monocytes # (Auto) 0.8 K/mm3 (0.0-0.8); Monocytes % (Auto) 11.5 % (0.0-7.3); Platelet Count 200 K/mm3 (140-440); Red Blood Count 4.76 M/mm3 (3.65-5.03); Red Cell Distribution Width 17.9 % (13.2-15.2)
[2021-02-02 20:19] LABS: INR 1.09 (0.87-1.13); Partial Thromboplastin Time 27.2 Sec. (24.2-36.6)
[2021-02-02 20:49] LABS: Albumin 4.2 g/dL (3.9-5); Calcium 9.4 mg/dL (8.4-10.2)
--- NOTE | 2021-02-02 21:02 | Cat Scan Report ---
CT ABDOMEN AND PELVIS WITH CONTRAST INDICATION: LLQ abdominal pain/rectal bleeding. TECHNIQUE: Axial CT images were obtained through the abdomen and pelvis after 100 cc IV contrast. All CT scans at this location are performed using CT dose reduction for ALARA by means of automated exposure contr ol. COMPARISON: CT abdomen pelvis 01/09/2021 FINDINGS: LOWER CHEST: No significant abnormality. LIVER: No significant abnormality. GALLBLADDER: No significant abnormality. BILE DUCTS: No significant abnormality. PANCREAS: No significant abnormality. SPLEEN: No significant abnormality. ADRENALS: No significant abnormality. RIGHT KIDNEY and URETER: No significant abnormality. LEFT KIDNEY and URETER: No significant abnormality. STOMACH and SMALL BOWEL: No significant abnormality. COLON: No significant abnormality. APPENDIX: Normal. PERITONEUM: No free fluid. No free air. No fluid collection. LYMPH NODES: No significant adenopathy. AORTA and ARTERIES: No significant abnormality. IVC and VEINS: No significant abnormality. URINARY BLADDER: No significant abnormality. REPRODUCTIVE ORGANS: No significant abnormality. ADDITIONAL FINDINGS: None. SKELETAL SYSTEM: Erosive facet arthropathy L5-S1 IMPRESSION: 1. No significant abnormality. Signer Name: Behzad Stubbs MD Signed: 02/02/2021 8:57 PM Workstation Name: [id number]
== END 2021-02-02 21:42 | disposition home or self-care (01) ==
LOC: ED 13:43
DX: R10.9 Unspecified abdominal pain (principal); I12.9 Hypertensive chronic kidney disease with stage 1 through stage 4 chronic kidney disease, or unspecified chronic kidney disease; N18.9 Chronic kidney disease, unspecified; M19.90 Unspecified osteoarthritis, unspecified site; K50.90 Crohn's disease, unspecified, without complications
CPT/HCPCS: 36415; 74177; 80053; 82270; 82271; 83690; 83735; 85025; 85610; 85730; 99284; Q9967

== ENCOUNTER 2021-02-11 00:43 | Emergency (ER) | payer MEDICAID ==
[2021-02-11 02:08] LABS: Basophils % (Auto) 0.6 % (0.0-1.8); Eosinophils # (Auto) 0.1 K/mm3 (0.0-0.4); Eosinophils % (Auto) 1.4 % (0.0-4.3); Hematocrit 38.2 % (35.5-45.6); Hemoglobin 12.7 gm/dl (11.8-15.2); Lymphocytes # (Auto) 1.3 K/mm3 (1.2-5.4); Lymphocytes % (Auto) 19.5 % (13.4-35.0); Mean Corpuscular HGB Conc 33 % (32-34); Mean Corpuscular Volume 85 fl (84-94); Monocytes # (Auto) 0.7 K/mm3 (0.0-0.8); Monocytes % (Auto) 10.6 % (0.0-7.3); Platelet Count 179 K/mm3 (140-440); Red Blood Count 4.48 M/mm3 (3.65-5.03); Red Cell Distribution Width 17.3 % (13.2-15.2)
[2021-02-11 02:37] LABS: Albumin 4.1 g/dL (3.9-5); Calcium 8.7 mg/dL (8.4-10.2)
[2021-02-11 03:38] LABS: Bacteria,Urine 1+ /HPF (Negative); RBC,Urine < 1.0 /HPF (0.0-6.0); WBC,Urine < 1.0 /HPF (0.0-6.0)
[2021-02-11 03:39] LABS: Bilirubin,Urine NEG (Negative); Blood,Urine NEG (Negative); Color,Urine Straw (Yellow); Protein,Urine <15 mg/dL mg/dL (Negative); Urobilinogen,Urine < 2.0 mg/dL (<2.0)
[2021-02-11 11:21] VITALS: BP 105/71
== END 2021-02-11 07:45 ==
LOC: ED 00:43
DX: R10.9 Unspecified abdominal pain (principal); Z53.21 Procedure and treatment not carried out due to patient leaving prior to being seen by health care provider
CPT/HCPCS: 36415; 80053; 81001; 85025

== ENCOUNTER 2021-02-27 21:21 | Emergency (ER) | payer MEDICAID ==
[2021-02-27 23:24] VITALS: BP 107/70
== END 2021-02-28 03:05 | disposition left against medical advice (07) ==
LOC: ED 21:21
DX: R10.9 Unspecified abdominal pain (principal); Z53.21 Procedure and treatment not carried out due to patient leaving prior to being seen by health care provider

== ENCOUNTER 2021-03-19 23:50 | Emergency (ER) | payer MEDICAID ==
[2021-03-20] MEDS ORDERED: ONDANSETRON 4 MG/2 ML INJ IV ONE (02:11)
[2021-03-20] MEDS ORDERED: MORPHINE 4 MG/1 ML INJ IV ONE (02:11)
--- NOTE | 2021-03-20 02:13 | Event Note ---
ED Screening Note Date of service: 03/20/21 Time: 02:11 ED Screening Note: Patient is a 61-year-old -[place] male with a history of chronic Crohn's disease, hypertension and chronic osteoarthritis who presents to the ED with complaint of acute onset persistent diffuse abdominal pain radiating the left lower quadrant area with diarrhea and hematochezia as well as nausea for the last 3 days. Patient states that diarrhea has actually worsened in the last 12 hours. Patient states that he has had blood mixed with stool and describes the blood as coffee-ground melena. Patient denies dysuria, fever, chills, vomiting, urinary frequency and urgency, chest pain, shortness of breath, hematuria, testicular pain, urinary frequency and urgency or constipation. This initial assessment/diagnostic orders/clinical plan/treatment(s) is/are subject to change based on patients health status, clinical progression and re- assessment by fellow clinical providers in the ED. Further treatment and workup at subsequent clinical providers discretion. Patient/guardian urged not to elope from the ED as their condition may be serious if not clinically assessed and managed. Initial orders include: CBC, CMP, UA, lipase, CT abdomen pelvis with contrast
[2021-03-20 02:47] LABS: Basophils # (Auto) 0.1 K/mm3 (0.0-0.1); Eosinophils # (Auto) 0.1 K/mm3 (0.0-0.4); Eosinophils % (Auto) 1.1 % (0.0-4.3); Hematocrit 37.6 % (35.5-45.6); Hemoglobin 12.7 gm/dl (11.8-15.2); Lymphocytes # (Auto) 1.1 K/mm3 (1.2-5.4); Mean Corpuscular HGB Conc 34 % (32-34); Mean Corpuscular Volume 86 fl (84-94); Monocytes # (Auto) 0.7 K/mm3 (0.0-0.8); Monocytes % (Auto) 12.7 % (0.0-7.3); Platelet Count 195 K/mm3 (140-440); Red Blood Count 4.38 M/mm3 (3.65-5.03); Red Cell Distribution Width 15.7 % (13.2-15.2)
[2021-03-20 02:54] LABS: Bilirubin,Urine NEG (Negative); Blood,Urine NEG (Negative); Color,Urine Straw (Yellow); Mucus,Urine FEW /HPF; RBC,Urine < 1.0 /HPF (0.0-6.0); Urobilinogen,Urine < 2.0 mg/dL (<2.0); WBC,Urine < 1.0 /HPF (0.0-6.0)
[2021-03-20 03:01] LABS: Alanine Aminotransferase 15 units/L (7-56); BUN/Creatinine Ratio 15; Blood Urea Nitrogen 32 mg/dL (9-20); Calcium 9.1 mg/dL (8.4-10.2); Hemolysis Index 12
[2021-03-20 03:11] VITALS: BP 160/101
--- NOTE | 2021-03-20 04:10 | Cat Scan Report ---
CT ABDOMEN AND PELVIS WITHOUT CONTRAST INDICATION: abdominal pain - LLQ CONTRAST: Without IV COMPARISON: 02/02/[address] scans at this location are performed using CT dose reduction for ALARA by means of automated e xposure control. FINDINGS: Lung bases are clear. No pneumoperitoneum is seen. Gallbladder is contracted but shows no o bvious abnormalities. No biliary dilatation is seen. No masses are noted. No urinary tract calculi or evidence of obstruction are seen. No inflammatory changes are noted. Minimal colonic diverticulosis is seen without evidence of diverticulitis. No evidence of bowel obstruction is seen. No free fluid i s noted. No lymphadenopathy is seen. IMPRESSION: No acute abnormalities are seen Signer Name: Robert Drake MD Signed: 03/20/2021 4:05 AM Workstation Name: [id number]
== END 2021-03-20 06:52 ==
LOC: ED 23:50
DX: R10.9 Unspecified abdominal pain (principal); Z53.21 Procedure and treatment not carried out due to patient leaving prior to being seen by health care provider
CPT/HCPCS: 36415; 74176; 80053; 81001; 83690; 85025

== ENCOUNTER 2021-04-22 23:58 | Emergency (ER) | payer MEDICAID ==
[2021-04-23] MEDS ORDERED: SODIUM CHLORIDE 0.9% 1000 ML 1,000 ML IV ONE ×2 (00:25→01:41)
[2021-04-23] MEDS ORDERED: MORPHINE 4 MG/1 ML INJ IV ONE (00:25)
[2021-04-23 01:05] LABS: Hematocrit 40.2 % (35.5-45.6); Hemoglobin 12.9 gm/dl (11.8-15.2); Mean Corpuscular HGB Conc 32 % (32-34); Mean Corpuscular Volume 88 fl (84-94); Platelet Count 203 K/mm3 (140-440); Red Blood Count 4.58 M/mm3 (3.65-5.03); Red Cell Distribution Width 14.6 % (13.2-15.2)
[2021-04-23] MEDS ORDERED: MORPHINE 2 MG/1 ML INJ IV ONE ×3 (01:15→02:14)
--- NOTE | 2021-04-23 01:16 | Emergency Department Report ---
ED Abdominal Pain HPI - General Chief Complaint: Abdominal Pain Stated Complaint: ABD PAIN Time Seen by Provider: 04/23/21 00:17 Source: patient Mode of arrival: Ambulatory Limitations: No Limitations - History of Present Illness Initial Comments: Patient presents with abdominal pain. He is having sharp pain in the left abdomen that does not radiate or migrate. It is in the upper abdomen. Again, this is sharp and cramping. He states that he had probably overdone it last night with his daughter's birthday democrat. He had eaten things that probably he should have. He had also had a couple of glasses of wine. Patient came in because of the pain. He has no fevers or chills. There is no trauma. He has no back pain. He has had pain like this numerous times before. He states that he normally gets a couple of liters of fluid and analgesics. Severity scale (0 -10): 10 - Related Data Home Medications Medication Instructions Recorded Confirmed Last Taken Divalproex Dr [Deproycete Dr] 500 mg PO QDAY 11/26/16 04/27/17 04/27/17 Previous Rx's Medication Instructions Recorded Last Taken Type amLODIPine 5 mg PO DAILY #90 tab 04/28/16 05/18/16 Rx Acetaminophen [Non-Aspirin Extra 500 mg PO Q6HR PRN #30 tablet 05/03/19 Unknown Rx Strength] Famotidine [Pepcid] 20 mg PO BID #10 tablet 05/03/19 Unknown Rx Dicyclomine [Bentyl] 20 mg PO QID PRN #20 tablet 04/23/21 Unknown Rx Ondansetron [Zofran ODT TAB] 4 mg PO Q6HR PRN #20 tab.rapdis 04/23/21 Unknown Rx Promethazine [Phenergan] 12.5 mg FL Q6H PRN #7 supp.rect 04/23/21 Unknown Rx Sucralfate [Carafate] 1 gm PO Q12H #120 04/23/21 Unknown Rx Allergies Allergy/AdvReac Type Severity Reaction Status Date / Time No Known Allergies Allergy Verified 03/20/21 02:05 ED Review of Systems ROS: Stated complaint: ABD PAIN Other details as noted in HPI Comment: All other systems reviewed and negative Constitutional: denies: fever Eyes: denies: eye pain ENT: denies: throat pain Respiratory: denies: cough Cardiovascular: denies: chest pain Endocrine: denies: unexplained weight loss Gastrointestinal: as per HPI Genitourinary: denies: dysuria Musculoskeletal: denies: back pain Skin: denies: rash Neurological: denies: headache Hematological/Lymphatic: denies: easy bruising ED Past Medical Hx - Past Medical History Previous Medical History?: Yes Hx Hypertension: Yes Hx Renal Disease: Yes Hx Arthritis: Yes (HANDS,KNEES) Additional medical history: crohn's. Chronic Knee Pain - Surgical History Past Surgical History?: No - Family History Family history: hypertension - Social History Smoking Status: Never Smoker Substance Use Type: Alcohol - Medications Home Medications: Home Medications Medication Instructions Recorded Confirmed Last Taken Type amLODIPine 5 mg PO DAILY #90 tab 04/28/16 04/27/17 05/18/[address] [Depakote Dr] 500 mg PO QDAY 11/26/16 04/27/17 04/27/17 History Acetaminophen [Non-Aspirin Extra 500 mg PO Q6HR PRN #30 tablet 05/03/19 Unknown Rx Strength] Famotidine [Pepcid] 20 mg PO BID #10 tablet 05/03/19 Unknown Rx Dicyclomine [Bentyl] 20 mg PO QID PRN #20 tablet 04/23/21 Unknown Rx Ondansetron [Zofran ODT TAB] 4 mg PO Q6HR PRN #20 tab.rapdis 04/23/21 Unknown Rx Promethazine [Phenergan] 12.5 mg FL Q6H PRN #7 supp.rect 04/23/21 Unknown Rx Sucralfate [Carafate] 1 gm PO Q12H #120 04/23/21 Unknown Rx ED Physical Exam - General Limitations: No Limitations, Other (Pulse ox noted and normal) General appearance: alert, in distress (Moderate discomfort) - Head Head exam: Present: atraumatic, normocephalic, normal inspection - Eye Eye exam: Present: normal appearance, EOMI. Absent: scleral icterus - ENT ENT exam: Present: normal exam, mucous membranes dry, normal external ear exam - Neck Neck exam: Present: normal inspection. Absent: meningismus - Respiratory Respiratory exam: Present: normal lung sounds bilaterally. Absent: respiratory distress - Cardiovascular Cardiovascular Exam: Present: normal rhythm, tachycardia - GI/Abdominal GI/Abdominal exam: Present: soft, tenderness (Mild left upper quadrant). Absent: guarding, rebound, pulsatile mass - Extremities Exam Extremities exam: Present: normal capillary refill. Absent: pedal edema - Back Exam Back exam: Absent: CVA tenderness (R), CVA tenderness (L) - Neurological Exam Neurological exam: Present: alert, oriented X3, CN II-XII intact, normal gait. Absent: motor sensory deficit - Psychiatric Psychiatric exam: Present: normal affect, normal mood - Skin Skin exam: Present: warm, dry ED Course Vital Signs 04/23/21 04/23/21 00:17 01:12 Temperature 99.4 F Pulse Rate 112 H Respiratory 20 Rate Blood Pressure 158/93 O2 Sat by Pulse 97 100 Oximetry - Reevaluation(s) Reevaluation #1: 04/23/21 01:15 IV labs were ordered. Old records reviewed. Reevaluation #2: 04/23/21 01:42 Labs are noted. Patient does have evidence of an acute kidney injury. Further hydration has been ordered. I do believe discharge would be appropriate. ED Medical Decision Making - Lab Data Result diagrams: 04/23/21 00:51 04/23/21 00:51 Rhythm strip: Normal sinus rhythm without ectopy per monitor observe 10 seconds. - Medical Decision Making Patient presents with abdominal pain after eating food as well as drinking wine. Etiology of the pain is felt to be likely related to his chronic condition, Crohn's disease. He certainly does not have peritoneal finding. He does not have significant leukocytosis or fever that would suggest infectious pathology. I do not believe this would represent any type of abscess. There is no pulsatile mass to suggest AAA. He does not have clinical evidence of hepatitis or pancreatitis. He does not have distention or tympany suggestive of bowel obstruction. He was treated symptomatically and referred for outpatient evaluation. Patient was hydrated aggressively given his acute kidney injury. He can follow-up with his primary physician for recheck. Critical Care Time: No Critical care attestation.: If time is entered above; I have spent that time in minutes in the direct care of this critically ill patient, excluding procedure time. ED Disposition Clinical Impression: Left upper quadrant abdominal pain, LANDON (acute kidney injury) Disposition: HOME / SELF CARE / HOMELESS Is pt being admited?: No Condition: Stable Instructions: Acute Kidney Injury, Adult, Abdominal Pain, Adult, [id number] Additional Instructions: Drink plenty water. Have a bland diet. Continue home medication. Follow-up with your regular doctor and your GI doctor. If you do not have a primary doctor, follow-up with the referral physician. Prescriptions: Dicyclomine [Bentyl] 20 mg PO QID PRN #20 tablet PRN Reason: abdominal pain Sucralfate [Carafate] 1 gm PO Q12H #120 Promethazine [Phenergan] 12.5 mg FL Q6H PRN #7 supp.rect PRN Reason: Nausea Ondansetron [Zofran ODT TAB] 4 mg PO Q6HR PRN #20 tab.rapdis PRN Reason: Nausea Referrals: PRIMARY CARE, [Referring] - 3-5 Days CODEY PRIEST MD [Staff Physician] - 3-5 Days
[2021-04-23 01:38] LABS: Albumin 4.2 g/dL (3.9-5); Calcium 9.2 mg/dL (8.4-10.2)
[2021-04-23 02:37] VITALS: BP 132/76
== END 2021-04-23 02:52 | disposition home or self-care (01) ==
LOC: ED 23:58
DX: N17.9 Acute kidney failure, unspecified (principal); I10 Essential (primary) hypertension; M19.90 Unspecified osteoarthritis, unspecified site; G89.29 Other chronic pain; Z72.89 Other problems related to lifestyle; Z79.899 Other long term (current) drug therapy
CPT/HCPCS: 36415; 80053; 83690; 85027; 96361; 96374; 96376; 99283; J2270; J7030

== ENCOUNTER 2021-06-03 23:46 | Emergency (ER) | payer MEDICAID ==
[2021-06-04] MEDS ORDERED: MORPHINE 4 MG/1 ML INJ IV ONE (00:19)
[2021-06-04] MEDS ORDERED: SODIUM CHLORIDE 0.9% 1000 ML 1,000 ML IV ONE (00:19)
[2021-06-04] MEDS ORDERED: ONDANSETRON 4 MG/2 ML INJ IV ONE (00:19)
--- NOTE | 2021-06-04 00:23 | Emergency Department Report ---
HPI - General Chief Complaint: Abdominal Pain Time Seen by Provider: 06/04/21 00:18 - HPI HPI: 61-year-old -German male presents to the emergency department with a complaint of left-sided abdominal pain and nausea with vomiting that has been going on since about 3 PM this afternoon. Patient has a history of Crohn's disease and says this appears consistent with previous flareups. He also has a history of hypertension. He tried some ibuprofen for his symptoms without any relief. Currently he says his abdominal pain is 8 out of 10 in intensity. No known aggravating or alleviating factors. No recent travel or sick contacts at home. 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 ED Past Medical Hx - Past Medical History Hx Hypertension: Yes Hx Renal Disease: Yes Hx Arthritis: Yes (HANDS,KNEES) Additional medical history: crohn's. Chronic Knee Pain - Social History Smoking Status: Never Smoker Substance Use Type: Alcohol - Medications Home Medications: Home Medications Medication Instructions Recorded Confirmed Last Taken Type amLODIPine 5 mg PO DAILY #90 tab 04/28/16 04/27/17 05/18/16 Rx Divalproex [Anastasia Clinton] 500 mg PO QDAY 11/26/16 04/27/17 04/27/17 History Acetaminophen [Non-Aspirin Extra 500 mg PO Q6HR PRN #30 tablet 05/03/19 Unknown Rx Strength] Famotidine [Pepcid] 20 mg PO BID #10 tablet 05/03/19 Unknown Rx Dicyclomine [Bentyl] 20 mg PO QID PRN #20 tablet 04/23/21 Unknown Rx Ondansetron [Zofran ODT TAB] 4 mg PO Q6HR PRN #20 tab.rapdis 04/23/21 Unknown Rx Promethazine [Phenergan] 12.5 mg [place] Q6H PRN #7 supp.rect 04/23/21 Unknown Rx Sucralfate [Carafate] 1 gm PO Q12H #120 04/23/21 Unknown Rx ED Review of Systems ROS: Stated complaint: ABDOMINAL PAIN/ CHROHN'S DISEASE Other details as noted in HPI Comment: All other systems reviewed and negative Constitutional: denies: chills, fever Eyes: denies: eye pain, vision change ENT: denies: ear pain, throat pain Respiratory: denies: cough, shortness of breath Cardiovascular: denies: chest pain, palpitations Gastrointestinal: abdominal pain, nausea, vomiting Genitourinary: denies: dysuria, discharge Musculoskeletal: denies: back pain, arthralgia Skin: denies: rash, lesions Neurological: denies: headache, weakness Physical Exam - Physical Exam Vital Signs: Vital Signs 06/03/21 23:55 Temperature 98.1 F Pulse Rate 95 H Respiratory 18 Rate Blood Pressure 127/79 [Left] O2 Sat by Pulse 98 Oximetry Physical Exam: GENERAL: The patient is well-developed well-nourished. HENT: Normocephalic. Atraumatic. Patient has moist mucous membranes. EYES: Extraocular motions are intact. NECK: Supple. Trachea is midline. CHEST/LUNGS: Clear to auscultation. There is no respiratory distress noted. HEART/CARDIOVASCULAR: Regular. There is no tachycardia. There is no murmur. ABDOMEN: Abdomen is soft. Left-sided abdominal tenderness to palpation. No guarding. Patient has normal bowel sounds. There is no abdominal distention. SKIN: Skin is warm and dry. NEURO: The patient is awake, alert, and oriented. The patient is cooperative. The patient has no focal neurologic deficits. Normal speech. MUSCULOSKELETAL: There is no tenderness or deformity. There is no limitation range of motion. ED Course Vital Signs 06/03/21 23:55 Temperature 98.1 F Pulse Rate 95 H Respiratory 18 Rate Blood Pressure 127/79 [Left] O2 Sat by Pulse 98 Oximetry ED Medical Decision Making - Lab Data Result diagrams: 06/04/21 00:59 06/04/21 00:59 Lab Results 06/04/21 06/04/21 Range/Units 00:59 00:59 WBC 6.0 (4.5-11.0) K/mm3 RBC 4.75 (3.65-5.03) M/mm3 Hgb 12.7 (11.8-15.2) gm/dl Hct 41.1 (35.5-45.6) % MCV 87 (84-94) fl MCH 27 L (28-32) pg MCHC 31 L (32-34) % RDW 15.4 H (13.2-15.2) % Plt Count 174 (140-440) K/mm3 Lymph % (Auto) 18.4 (13.4-35.0) % [place] % (Auto) 9.5 H (0.0-7.3) % Eos % (Auto) 0.7 (0.0-4.3) % Baso % (Auto) 0.8 (0.0-1.8) % Lymph # (Auto) 1.1 L (1.2-5.4) K/mm3 [place] # (Auto) 0.6 (0.0-0.8) K/mm3 Eos # (Auto) 0.0 (0.0-0.4) K/mm3 Baso # (Auto) 0.0 (0.0-0.1) K/mm3 Seg Neutrophils % 70.6 H (40.0-70.0) % Seg Neutrophils # 4.2 (1.8-7.7) K/mm3 Sodium 133 L (137-145) mmol/L Potassium 4.4 (3.6-5.0) mmol/L Chloride 95.1 L (98-107) mmol/L Carbon Dioxide 21 L (22-30) mmol/L Anion Gap 21 mmol/L BUN 35 H (9-20) mg/dL Creatinine 2.5 H (0.8-1.3) mg/dL Estimated GFR 32 ml/min BUN/Creatinine Ratio 14 % Glucose 119 H (75-100) mg/dL Calcium 8.9 (8.4-10.2) mg/dL Total Bilirubin 0.20 (0.1-1.2) mg/dL Direct Bilirubin < 0.2 (0-0.2) mg/dL Indirect Bilirubin 0.0 mg/dL AST 21 (5-40) units/L ALT 17 (7-56) units/L Alkaline Phosphatase 90 (35-129) units/L Total Protein 6.6 (6.3-8.2) g/dL Albumin 4.0 (3.9-5) g/dL Albumin/Globulin Ratio 1.5 % Lipase 32 (13-60) units/L - Radiology Data Radiology results: image reviewed interpreted by me: Chest x-ray does not show any acute process. There are no pleural effusions, obvious pneumonia and there is no pneumothorax. No widened mediastinum. Abdominal x-ray shows nonspecific nonobstructive bowel gas. No free air. - Medical Decision Making This patient presents with acute left-sided abdominal pain that he feels is consistent with previous exacerbations of his Crohn's disease. On examination he does have reproducible left-sided abdominal tenderness to palpation. However the abdomen is soft and nondistended. He does not appear to have any peritoneal signs. Labs have been mostly unremarkable except for renal insufficiency consistent with his chronic kidney disease. No leukocytosis. No elevation to his LFTs, lipase or bilirubin. Acute abdominal series does not sh ow any acute process. There is nonspecific nonobstructive bowel gas, and no free air. The patient was given some IV fluid resuscitation and a dose of IV analgesia. Upon reevaluation he is feeling greatly improved. He has good outpatient follow-up with primary care and gastroenterology. He will return to the emergency department with any worsening of his symptoms or with any acute distress. Critical Care Time: No Critical care attestation.: If time is entered above; I have spent that time in minutes in the direct care of this critically ill patient, excluding procedure time. 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 Return to the emergency department with any worsening of your symptoms, new or concerning symptoms not addressed during this current emergency department visit, or with any acute distress. Referrals: PRIMARY MD WALLY [Primary Care Provider] - 2-3 Days [employer], Your [Other] - 2-3 Days Time of Disposition: 02:51
--- NOTE | 2021-06-04 01:03 | XRay Report ---
XR abd series w cxr 1V INDICATION / CLINICAL INFORMATION: Abd pain. COMPARISON: CT from 03/20/2021. FINDINGS: TUBES / LINES: None. BOWEL GAS PATTERN: No significant abnormality. FREE AIR / EXTRALUMINAL GAS: None seen. ADDITIONAL FINDINGS: No significant additional findings. CHEST: Lungs are clear. No sizable pleural effusion or evidence pneumothorax. Heart size is normal. IMPRESSION: No significant abnormality of the chest or abdomen. Signer Name: Stephen eDlcid MD Signed: 06/04/2021 12:59 AM Workstation Name: [id number]
[2021-06-04 01:10] LABS: Basophils % (Auto) 0.8 % (0.0-1.8); Eosinophils % (Auto) 0.7 % (0.0-4.3); Lymphocytes # (Auto) 1.1 K/mm3 (1.2-5.4); Lymphocytes % (Auto) 18.4 % (13.4-35.0); Mean Corpuscular HGB Conc 31 % (32-34); Mean Corpuscular Volume 87 fl (84-94); Monocytes # (Auto) 0.6 K/mm3 (0.0-0.8); Monocytes % (Auto) 9.5 % (0.0-7.3); Platelet Count 174 K/mm3 (140-440); Red Blood Count 4.75 M/mm3 (3.65-5.03); Red Cell Distribution Width 15.4 % (13.2-15.2)
[2021-06-04 01:11] LABS: Hematocrit 41.1 % (35.5-45.6); Hemoglobin 12.7 gm/dl (11.8-15.2)
[2021-06-04 01:35] LABS: Alanine Aminotransferase 17 units/L (7-56); BUN/Creatinine Ratio 14; Blood Urea Nitrogen 35 mg/dL (9-20); Calcium 8.9 mg/dL (8.4-10.2); Hemolysis Index 28
[2021-06-04 01:36] LABS: Bilirubin,Direct < 0.2 mg/dL (0-0.2)
[2021-06-04 04:40] VITALS: BP 129/90
== END 2021-06-04 04:07 | disposition home or self-care (01) ==
LOC: ED 23:46
DX: K50.90 Crohn's disease, unspecified, without complications (principal); R10.9 Unspecified abdominal pain; N18.9 Chronic kidney disease, unspecified; F10.20 Alcohol dependence, uncomplicated
CPT/HCPCS: 36415; 74022; 80048; 80076; 83690; 85025; 96361; 96374; 96375; 99284; J2270; J2405; J7030; Q0162

== ENCOUNTER 2021-06-10 00:50 | Emergency (ER) | payer MEDICAID ==
[2021-06-10] MEDS ORDERED: SODIUM CHLORIDE 0.9% 1000 ML 1,000 ML IV ONE (05:13)
[2021-06-10] MEDS ORDERED: MORPHINE 4 MG/1 ML INJ IV STA (05:13)
--- NOTE | 2021-06-10 05:59 | Event Note ---
ED Screening Note ED Screening Note: 61-year-old -Filipino male with a reported past medical history of with chronic recurrent flareups and chronic abdominal pain who is being seen in the emergency department multiple times this year for similar symptoms currently presents to the emergency department complaining of having continued Crohn's related discomfort. Earlier today while he was walking in the store he was having abdominal pain which caused him to get lightheaded and he tripped and fell forward landing onto the left side of his abdomen resulting in more dull throbbing pain which is worse with palpation and range of motion associated with 2 episodes of nausea and vomiting prior to his arrival. He did call EMS but he was down on the ground to be transported to the emergency department seeking for evaluation and treatment options. Mr. Trejo reports having frequent episodes similar to this when the resolve with fluids and morphine is what he is requesting at this present time he reports no hemoptysis, no hematemesis hematochezia, no foreign travel, no chest pain, no palpitations, no diarrhea. Not yet follow-up with gastroenterology as previously recommended This initial assessment/diagnostic orders/clinical plan/treatment(s) is/are subject to change based on patients health status, clinical progression and re- assessment by fellow clinical providers in the ED. Further treatment and workup at subsequent clinical providers discretion. Patient/guardian urged not to elope from the ED as their condition may be serious if not clinically assessed and managed. Initial orders include: Case discussed with attending Dr. Woods home advised for further evaluation by the oncoming physician
--- NOTE | 2021-06-10 06:15 | Emergency Department Report ---
ED Abdominal Pain HPI - General Chief Complaint: Abdominal Pain Stated Complaint: ABDOMINAL PAIN PUI?: No Time Seen by Provider: 06/10/21 06:00 Source: patient, EMS Mode of arrival: Stretcher Limitations: No Limitations - History of Present Illness Initial Comments: Chief complaint: Abdominal pain HPI: This is a 61-year-old male history of gout Crohn's disease chronic kidney disease who presents with left lower quadrant abdominal pain for 1 day. 2 episodes of vomiting. He denies hematemesis or hematochezia. Moderate pain. He receives his care at [facility]. He has had normal appetite. No abdominal surgeries. MD Complaint: abdominal pain -: Gradual, days(s) (one day) Location: LLQ Severity: moderate Severity scale (0 -10): 6 Quality: cramping, aching Consistency: constant Improves With: nothing Worsens With: nothing Associated Symptoms: nausea, vomiting - Related Data Home Medications Medication Instructions Recorded Confirmed Last Taken Divalproex Dr [Depakote Dr] 500 mg PO QDAY 11/26/16 04/27/17 04/27/17 Previous Rx's Medication Instructions Recorded Last Taken Type amLODIPine 5 mg PO DAILY #90 tab 04/28/16 05/18/16 Rx Acetaminophen [Non-Aspirin Extra 500 mg PO Q6HR PRN #30 tablet 05/03/19 Unknown Rx Strength] Famotidine [Pepcid] 20 mg PO BID #10 tablet 05/03/19 Unknown Rx Dicyclomine [Bentyl] 20 mg PO QID PRN #20 tablet 04/23/21 Unknown Rx Ondansetron [Zofran ODT TAB] 4 mg PO Q6HR PRN #20 tab.rapdis 04/23/21 Unknown Rx Promethazine [Phenergan] 12.5 mg [place] Q6H PRN #7 supp.rect 04/23/21 Unknown Rx Sucralfate [Carafate] 1 gm PO Q12H #120 04/23/21 Unknown Rx Ondansetron [Zofran Odt] 4 mg PO Q8HR PRN #10 tab.rapdis 06/10/21 Unknown Rx Allergies Allergy/AdvReac Type Severity Reaction Status Date / Time No Known Allergies Allergy Verified 06/03/21 23:55 ED Review of Systems ROS: Stated complaint: ABDOMINAL PAIN Other details as noted in HPI Comment: All other systems reviewed and negative Constitutional: denies: chills, fever, malaise Respiratory: denies: cough, shortness of breath Cardiovascular: denies: chest pain Gastrointestinal: abdominal pain, nausea, vomiting ED Past Medical Hx - Past Medical History Previous Medical History?: Yes Hx Hypertension: Yes Hx Renal Disease: Yes Hx Arthritis: Yes (HANDS,KNEES) Additional medical history: crohn's. Chronic Knee Pain - Surgical History Past Surgical History?: Yes - Social History Smoking Status: Never Smoker Substance Use Type: Alcohol - Medications Home Medications: Home Medications Medication Instructions Recorded Confirmed Last Taken Type amLODIPine 5 mg PO DAILY #90 tab 04/28/16 04/27/17 05/18/[address] [Depakote Dr] 500 mg PO QDAY 11/26/16 04/27/17 04/27/17 History Acetaminophen [Non-Aspirin Extra 500 mg PO Q6HR PRN #30 tablet 05/03/19 Unknown Rx Strength] Famotidine [Pepcid] 20 mg PO BID #10 tablet 05/03/19 Unknown Rx Dicyclomine [Bentyl] 20 mg PO QID PRN #20 tablet 04/23/21 Unknown Rx Ondansetron [Zofran ODT TAB] 4 mg PO Q6HR PRN #20 tab.rapdis 04/23/21 Unknown Rx Promethazine [Phenergan] 12.5 mg DC Q6H PRN #7 supp.rect 04/23/21 Unknown Rx Sucralfate [Carafate] 1 gm PO Q12H #120 04/23/21 Unknown Rx Ondansetron [Zofran Odt] 4 mg PO Q8HR PRN #10 tab.rapdis 06/10/21 Unknown Rx ED Physical Exam - General Limitations: No Limitations General appearance: alert, in no apparent distress, other (Appears comfortable, appears well) - Head Head exam: Present: atraumatic, normocephalic - Eye Eye exam: Present: normal appearance - ENT ENT exam: Present: mucous membranes moist - Neck Neck exam: Present: normal inspection - Respiratory Respiratory exam: Present: normal lung sounds bilaterally. Absent: respiratory distress, wheezes, rales, rhonchi - Cardiovascular Cardiovascular Exam: Present: regular rate, normal rhythm, normal heart sounds. Absent: systolic murmur, diastolic murmur, rubs, gallop - GI/Abdominal GI/Abdominal exam: Present: soft, normal bowel sounds - Rectal Rectal exam: Present: deferred - Extremities Exam Extremities exam: Present: normal inspection - Back Exam Back exam: Present: normal inspection - Neurological Exam Neurological exam: Present: alert, oriented X3 - Psychiatric Psychiatric exam: Present: normal affect, normal mood - Skin Skin exam: Present: warm, dry, intact, normal color. Absent: rash ED Course Vital Signs 06/10/21 06/10/21 00:55 06:19 Temperature 98.3 F Pulse Rate 105 H Respiratory 18 16 Rate Blood Pressure 125/85 [Left] O2 Sat by Pulse 96 Oximetry - Reevaluation(s) Reevaluation #1: 06/10/21 07:35 Patient is currently pain-free. He is jovial. He asked to be discharged. ED Medical Decision Making - Medical Decision Making Crohn's exacerbation: Patient appears well appears nontoxic no fever no tenderness in the abdomen. Prescribed Zofran. 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 Critical care attestation.: If time is entered above; I have spent that time in minutes in the direct care of this critically ill patient, excluding procedure time. ED Disposition Clinical Impression: History of Crohn's disease, Exacerbation of Crohn's disease Disposition: HOME / SELF CARE / HOMELESS Is pt being admited?: No Does the pt Need Aspirin: No Condition: Stable Instructions: Clear Liquid Diet, Adult, [id number] Prescriptions: Ondansetron [Zofran Odt] 4 mg PO Q8HR PRN #10 tab.rapdis PRN Reason: Nausea Referrals: ZAINAB MCCARTHY MD [Other] - 3-5 Days
[2021-06-10 07:49] VITALS: BP 132/76
== END 2021-06-10 07:50 | disposition home or self-care (01) ==
LOC: ED 00:50
DX: K50.90 Crohn's disease, unspecified, without complications (principal); F10.20 Alcohol dependence, uncomplicated; I10 Essential (primary) hypertension
CPT/HCPCS: 96361; 96374; 99283; J2270; J7030; Q0162

== ENCOUNTER 2021-07-22 21:11 | Emergency (ER) | payer MEDICAID ==
[2021-07-22 21:44] VITALS: BP 136/72
[2021-07-22] MEDS ORDERED: SODIUM CHLORIDE 0.9% 1000 ML 1,000 ML IV ONE (21:59)
[2021-07-22] MEDS ORDERED: ONDANSETRON 4 MG/2 ML INJ IV ONE (21:59)
[2021-07-22] MEDS ORDERED: MORPHINE 4 MG/1 ML INJ IV ONE (21:59)
[2021-07-22 23:01] LABS: Hematocrit 39.2 % (35.5-45.6); Hemoglobin 12.8 gm/dl (11.8-15.2); Mean Corpuscular HGB Conc 33 % (32-34); Mean Corpuscular Volume 89 fl (84-94); Platelet Count 178 K/mm3 (140-440); Red Blood Count 4.43 M/mm3 (3.65-5.03); Red Cell Distribution Width 15.8 % (13.2-15.2)
[2021-07-22 23:15] LABS: INR 0.87 (0.87-1.13)
[2021-07-22 23:26] LABS: Alanine Aminotransferase 13 units/L (7-56); Albumin 3.8 g/dL (3.9-5); BUN/Creatinine Ratio 15; Blood Urea Nitrogen 29 mg/dL (9-20); Calcium 8.6 mg/dL (8.4-10.2); Hemolysis Index 26
[2021-07-22 23:35] LABS: Bilirubin,Urine NEG (Negative); Blood,Urine SM (Negative); Color,Urine Colorless (Yellow); Protein,Urine <15 mg/dL mg/dL (Negative); RBC,Urine < 1.0 /HPF (0.0-6.0); Urobilinogen,Urine < 2.0 mg/dL (<2.0)
[2021-07-22 23:36] LABS: Bilirubin,Direct < 0.2 mg/dL (0-0.2)
--- NOTE | 2021-07-23 01:07 | Cat Scan Report ---
CT OF THE ABDOMEN AND PELVIS WITHOUT CONTRAST INDICATION / CLINICAL INFORMATION: Abdominal pain. TECHNIQUE: All CT scans at this location are performed using CT dose reduction for ALARA by means of automated exposure control. COMPARISON: 03/20/21. FINDINGS: ABDOMEN: The liver, spleen, gallbladder, bile ducts, pancreas, adrenal glands, kidneys and bowel demo nstrate no significant abnormality. No adenopathy is seen. No acute vascular abnormality is identifie d. The lung bases are clear. PELVIS: The distal ureters and urinary bladder are normal. The prostate gland and seminal vesicles ar e unremarkable. The appendix is not seen. There is no evidence of diverticulitis. No abnormal mass or fluid collection is present. I do not identify a hernia. There is mild lower lumbar spondylosis. IMPRESSION: No acute abnormality. Signer Name: Bridger Calderon MD Signed: 07/23/2021 1:02 AM Workstation Name: [id number]
--- NOTE | 2021-07-23 01:16 | Emergency Department Report ---
ED Abdominal Pain HPI - General Chief Complaint: Abdominal Pain Stated Complaint: ABDOMINAL PAIN X 45MINS Time Seen by Provider: 07/22/21 21:54 Source: patient Mode of arrival: Wheelchair Limitations: No Limitations - History of Present Illness MD Complaint: abdominal pain -: Gradual, week(s) Location: [facility] Radiation: none Migration to: no migration Severity scale (0 -10): 8 Quality: aching Consistency: constant Improves With: nothing Worsens With: nothing Associated Symptoms: nausea, vomiting - Related Data Home Medications Medication Instructions Recorded Confirmed Last Taken Divalproex Dr [Depakote Dr] 500 mg PO QDAY 11/26/16 04/27/17 04/27/17 Previous Rx's Medication Instructions Recorded Last Taken Type amLODIPine 5 mg PO DAILY #90 tab 04/28/16 05/18/16 Rx Acetaminophen [Non-Aspirin Extra 500 mg PO Q6HR PRN #30 tablet 05/03/19 Unknown Rx Strength] Famotidine [Pepcid] 20 mg PO BID #10 tablet 05/03/19 Unknown Rx Dicyclomine [Bentyl] 20 mg PO QID PRN #20 tablet 04/23/21 Unknown Rx Ondansetron [Zofran ODT TAB] 4 mg PO Q6HR PRN #20 tab.rapdis 04/23/21 Unknown Rx Promethazine [Phenergan] 12.5 mg [place] Q6H PRN #7 supp.rect 04/23/21 Unknown Rx Sucralfate [Carafate] 1 gm PO Q12H #120 04/23/21 Unknown Rx Ondansetron [Zofran Odt] 4 mg PO Q8HR PRN #10 tab.rapdis 06/10/21 Unknown Rx Allergies Allergy/AdvReac Type Severity Reaction Status Date / Time No Known Allergies Allergy Verified 07/22/21 21:40 ED Review of Systems ROS: Stated complaint: ABDOMINAL PAIN X 45MINS Other details as noted in HPI Constitutional: denies: chills, fever Eyes: denies: eye pain, eye discharge, vision change ENT: denies: ear pain, throat pain Respiratory: denies: cough, shortness of breath, wheezing Cardiovascular: denies: chest pain, palpitations Endocrine: no symptoms reported Gastrointestinal: denies: abdominal pain, nausea, diarrhea Genitourinary: denies: urgency, dysuria Musculoskeletal: denies: back pain, joint swelling, arthralgia Skin: denies: rash, lesions Neurological: denies: headache, weakness, paresthesias Psychiatric: denies: anxiety, depression Hematological/Lymphatic: denies: easy bleeding, easy bruising ED Past Medical Hx - Past Medical History Hx Hypertension: Yes Hx Renal Disease: Yes Hx Arthritis: Yes (HANDS,KNEES) Additional medical history: crohn's. Chronic Knee Pain - Social History Smoking Status: Never Smoker Substance Use Type: Alcohol - Medications Home Medications: Home Medications Medication Instructions Recorded Confirmed Last Taken Type amLODIPine 5 mg PO DAILY #90 tab 04/28/16 04/27/17 05/18/[address] [Depakote Dr] 500 mg PO QDAY 11/26/16 04/27/17 04/27/17 History Acetaminophen [Non-Aspirin Extra 500 mg PO Q6HR PRN #30 tablet 05/03/19 Unknown Rx Strength] Famotidine [Pepcid] 20 mg PO BID #10 tablet 05/03/19 Unknown Rx Dicyclomine [Bentyl] 20 mg PO QID PRN #20 tablet 04/23/21 Unknown Rx Ondansetron [Zofran ODT TAB] 4 mg PO Q6HR PRN #20 tab.rapdis 04/23/21 Unknown Rx Promethazine [Phenergan] 12.5 mg [place] Q6H PRN #7 supp.rect 04/23/21 Unknown Rx Sucralfate [Carafate] 1 gm PO Q12H #120 04/23/21 Unknown Rx Ondansetron [Zofran Odt] 4 mg PO Q8HR PRN #10 tab.rapdis 06/10/21 Unknown Rx ED Physical Exam - General Limitations: No Limitations General appearance: alert, in no apparent distress - Head Head exam: Present: atraumatic, normocephalic - Eye Eye exam: Present: normal appearance - ENT ENT exam: Present: mucous membranes moist - Neck Neck exam: Present: normal inspection - Respiratory Respiratory exam: Present: normal lung sounds bilaterally. Absent: respiratory distress - Cardiovascular Cardiovascular Exam: Present: regular rate, normal rhythm. Absent: systolic murmur, diastolic murmur, rubs, gallop - GI/Abdominal GI/Abdominal exam: Present: soft, tenderness, normal bowel sounds - Rectal Rectal exam: Present: deferred - Extremities Exam Extremities exam: Present: normal inspection - Back Exam Back exam: Present: normal inspection - Neurological Exam Neurological exam: Present: alert, oriented X3 - Psychiatric Psychiatric exam: Present: normal affect, normal mood - Skin Skin exam: Present: warm, dry, intact, normal color. Absent: rash ED Course Vital Signs 07/22/21 07/22/21 21:40 22:12 Temperature 98.2 F Pulse Rate 77 Respiratory 18 18 Rate Blood Pressure 136/72 [Left] O2 Sat by Pulse 97 Oximetry - Reevaluation(s) Reevaluation #1: 07/23/21 01:15 work up neg , renal impairment chonirc, ct negative vss no distress , repetaed visits fort he same ED Medical Decision Making - Lab Data Result diagrams: 07/22/21 22:22 07/22/21 22:22 Critical care attestation.: If time is entered above; I have spent that time in minutes in the direct care of this critically ill patient, excluding procedure time. ED Disposition Clinical Impression: Abdominal pain, Dehydration, Renal insufficiency Disposition: 01 HOME / SELF CARE / HOMELESS Is pt being admited?: No Does the pt Need Aspirin: No Condition: Stable Instructions: Food Basics for Chronic Kidney Disease, Abdominal Pain, Adult Referrals: PRIMARY CARE, [Primary Care Provider] - 3-5 Days
[2021-07-23 03:00] LABS: Anisocytosis 1+; Platelet Estimate Consistent w Auto; Total Cells Counted 100
== END 2021-07-23 01:20 | disposition home or self-care (01) ==
LOC: ED 21:11
DX: R10.9 Unspecified abdominal pain (principal); E86.0 Dehydration; N28.9 Disorder of kidney and ureter, unspecified; I10 Essential (primary) hypertension; M19.90 Unspecified osteoarthritis, unspecified site; K50.90 Crohn's disease, unspecified, without complications; M25.569 Pain in unspecified knee
CPT/HCPCS: 36415; 74176; 80048; 80076; 81001; 82150; 83690; 85007; 85025; 85610; 96361; 96374; 96375; 99284; J2270; J2405; J7030; Q0162

== ENCOUNTER 2021-08-07 17:14 | Emergency (ER) | payer MEDICAID ==
[2021-08-07 17:18] VITALS: BP 133/79
[2021-08-08] MEDS ORDERED: ONDANSETRON 4 MG/2 ML INJ IV ONE (02:31)
[2021-08-08] MEDS ORDERED: SODIUM CHLORIDE 0.9% 1000 ML 1,000 ML IV ONE (02:31)
[2021-08-08] MEDS ORDERED: MORPHINE 4 MG/1 ML INJ IV ONE (02:32)
--- NOTE | 2021-08-08 02:40 | Emergency Department Report ---
ED Abdominal Pain HPI - General Chief Complaint: Abdominal Pain Stated Complaint: abd pain Source: EMS Mode of arrival: Stretcher Limitations: No Limitations - History of Present Illness Initial Comments: 61-year-old male presents to the ED with complaint of Crohn flareup. Patient stated on yesterday that he was drinking and eating red meat while watching the [place] Bowl today and now has a Crohn's flareup. He states that he has a history of Crohn's disease, hypertension . Patient states that he did not wish to have blood work drawn today that he often have these flare and usual feel better after fluids ,morphine and zofran. patient states that he last saw his PCP last week. Patient states he was nauseated x1 today. Patient is alert and oriented. He states pain is a 4 out of 10 at present. Patient is alert and oriented. No acute distress noted .No ill appearance noted MD Complaint: abdominal pain Onset/Timin -: days(s) Location: diffuse Radiation: none Migration to: no migration Severity scale (0 -10): 4 Quality: aching Consistency: intermittent Improves With: nothing Worsens With: eating Associated Symptoms: denies other symptoms Treatments Prior to Arrival: NSAIDs - Related Data Home Medications Medication Instructions Recorded Confirmed Last Taken Divalproex Dr [Depakote Dr] 500 mg PO QDAY 11/26/16 04/27/17 04/27/17 Previous Rx's Medication Instructions Recorded Last Taken Type amLODIPine 5 mg PO DAILY #90 tab 04/28/16 05/18/16 Rx Acetaminophen [Non-Aspirin Extra 500 mg PO Q6HR PRN #30 tablet 05/03/19 Unknown Rx Strength] Famotidine [Pepcid] 20 mg PO BID #10 tablet 05/03/19 Unknown Rx Dicyclomine [Bentyl] 20 mg PO QID PRN #20 tablet 04/23/21 Unknown Rx Ondansetron [Zofran ODT TAB] 4 mg PO Q6HR PRN #20 tab.rapdis 04/23/21 Unknown Rx Promethazine [Phenergan] 12.5 mg [place] Q6H PRN #7 supp.rect 04/23/21 Unknown Rx Sucralfate [Carafate] 1 gm PO Q12H #120 04/23/21 Unknown Rx Ondansetron [Zofran Odt] 4 mg PO Q8HR PRN #10 tab.rapdis 06/10/21 Unknown Rx Allergies Allergy/AdvReac Type Severity Reaction Status Date / Time No Known Allergies Allergy Verified 07/22/21 21:40 ED Review of Systems ROS: Stated complaint: abd pain Other details as noted in HPI Constitutional: denies: chills, fever Eyes: denies: eye pain, eye discharge, vision change ENT: denies: ear pain, throat pain Respiratory: denies: cough, shortness of breath, wheezing Cardiovascular: denies: chest pain, palpitations Endocrine: no symptoms reported Gastrointestinal: denies: abdominal pain, nausea, diarrhea Genitourinary: denies: urgency, dysuria Musculoskeletal: denies: back pain, joint swelling, arthralgia Skin: denies: rash, lesions Neurological: denies: headache, weakness, paresthesias Psychiatric: denies: anxiety, depression Hematological/Lymphatic: denies: easy bleeding, easy bruising ED Past Medical Hx - Past Medical History Hx Hypertension: Yes Hx Renal Disease: Yes Hx Arthritis: Yes (HANDS,KNEES) Additional medical history: crohn's. Chronic Knee Pain - Social History Smoking Status: Never Smoker Substance Use Type: Alcohol - Medications Home Medications: Home Medications Medication Instructions Recorded Confirmed Last Taken Type amLODIPine 5 mg PO DAILY #90 tab 04/28/16 04/27/17 05/18/16 Rx Divalproex [Anastasia [place]] 500 mg PO QDAY 11/26/16 04/27/17 04/27/17 History Acetaminophen [Non-Aspirin Extra 500 mg PO Q6HR PRN #30 tablet 05/03/19 Unknown Rx Strength] Famotidine [Pepcid] 20 mg PO BID #10 tablet 05/03/19 Unknown Rx Dicyclomine [Bentyl] 20 mg PO QID PRN #20 tablet 04/23/21 Unknown Rx Ondansetron [Zofran ODT TAB] 4 mg PO Q6HR PRN #20 tab.rapdis 04/23/21 Unknown Rx Promethazine [Phenergan] 12.5 mg [place] Q6H PRN #7 supp.rect 04/23/21 Unknown Rx Sucralfate [Carafate] 1 gm PO Q12H #120 04/23/21 Unknown Rx Ondansetron [Zofran Odt] 4 mg PO Q8HR PRN #10 tab.rapdis 06/10/21 Unknown Rx ED Physical Exam - General Limitations: No Limitations General appearance: alert, in no apparent distress - Head Head exam: Present: atraumatic, normocephalic - Eye Eye exam: Present: normal appearance - ENT ENT exam: Present: mucous membranes moist - Neck Neck exam: Present: normal inspection - Respiratory Respiratory exam: Present: normal lung sounds bilaterally. Absent: respiratory distress - Cardiovascular Cardiovascular Exam: Present: regular rate, normal rhythm. Absent: systolic murmur, diastolic murmur, rubs, gallop - GI/Abdominal GI/Abdominal exam: Present: soft, tenderness, normal bowel sounds. Absent: guarding, rebound - Rectal Rectal exam: Present: deferred - Extremities Exam Extremities exam: Present: normal inspection - Back Exam Back exam: Present: normal inspection - Neurological Exam Neurological exam: Present: alert, oriented X3 - Psychiatric Psychiatric exam: Present: normal affect, normal mood - Skin Skin exam: Present: warm, dry, intact, normal color. Absent: rash ED Course Vital Signs 08/07/21 08/08/21 17:15 02:51 Temperature 98.4 F Pulse Rate 96 H Respiratory 20 14 Rate Blood Pressure 133/79 [Left] O2 Sat by Pulse 100 Oximetry ED Medical Decision Making - Medical Decision Making 61-year-old male presents to the ED with complaint of Crohn flareup. Patient stated on yesterday that he was drinking and eating red meat while watching the [employer] today and now has a Crohn's flareup. He states that he has a history of Crohn's disease, hypertension . Patient states that he did not wish to have blood work drawn today that he often have these flare and usual feel better after fluids ,morphine and zofran. patient states that he last saw his PCP last week. Patient states he was nauseated x1 today. Patient is alert and oriented. He states pain is a 4 out of 10 at present. Patient is alert and oriented. No acute distress noted .No ill appearance noted. Patient was given 1 L of normal saline morphine 3 mg IV and Zofran 4mg IV. Patient states pain was 0 out of 10 after treatment. Rechecked the patient is resting quietly quietly and comfortable and feeling better. I discussed the results of diagnostic study, my clinical impression and the plan for further treatment with the patient. Patient agrees with plan and discharge at this present time. All question addressed. I have given the patient instruction regarding a diagnosis ,expectation ,follow- up and return precaution. I explained to the patient that emergent condition may arise and to return to the ED for new worsen and any new persisting condition. I have explained the importance of following up with the primary care physician or referral physician listed below has instructed. The patient verbalized understanding of discharge instruction. Critical care attestation.: If time is entered above; I have spent that time in minutes in the direct care of this critically ill patient, excluding procedure time. ED Disposition Clinical Impression: Crohn's disease Qualifiers: Gastrointestinal tract location: unspecified location Digestive disease complication type: unspecified complication Qualified Code(s): K50.919 - Crohn's disease, unspecified, with unspecified complications Disposition: 01 HOME / SELF CARE / HOMELESS Is pt being admited?: No Does the pt Need Aspirin: No Condition: Good Additional Instructions: Do not drink alcohol or red meat eat red meat that may cause a Crohn's flareup Return to ED for any worsening symptoms Referrals: PRIMARY MD WALLY [Primary Care Provider] - 3-5 Days [facility] [Provider Group] - 3-5 Days Time of Disposition: 04:07
== END 2021-08-08 04:15 | disposition home or self-care (01) ==
LOC: ED 17:14
DX: K50.919 Crohn's disease, unspecified, with unspecified complications (principal); I10 Essential (primary) hypertension; N28.9 Disorder of kidney and ureter, unspecified; M19.90 Unspecified osteoarthritis, unspecified site
CPT/HCPCS: 96361; 96374; 96375; 99283; J2270; J2405; J7030; Q0162

== ENCOUNTER 2021-08-15 19:32 | Emergency (ER) | payer MEDICAID ==
[2021-08-15 19:39] VITALS: BP 135/77
[2021-08-15 21:02] LABS: Basophils % (Auto) 0.7 % (0.0-1.8); Eosinophils # (Auto) 0.1 K/mm3 (0.0-0.4); Eosinophils % (Auto) 1.7 % (0.0-4.3); Hematocrit 36.6 % (35.5-45.6); Hemoglobin 12.4 gm/dl (11.8-15.2); Lymphocytes # (Auto) 0.9 K/mm3 (1.2-5.4); Lymphocytes % (Auto) 16.8 % (13.4-35.0); Mean Corpuscular HGB Conc 34 % (32-34); Mean Corpuscular Volume 90 fl (84-94); Monocytes # (Auto) 0.8 K/mm3 (0.0-0.8); Monocytes % (Auto) 14.3 % (0.0-7.3); Platelet Count 182 K/mm3 (140-440); Red Blood Count 4.04 M/mm3 (3.65-5.03)
[2021-08-15 21:22] LABS: Albumin 3.6 g/dL (3.9-5); Calcium 9.2 mg/dL (8.4-10.2)
[2021-08-16] MEDS ORDERED: SODIUM CHLORIDE 0.9% 1000 ML 1,000 ML IV ONE (03:01)
[2021-08-16] MEDS ORDERED: ONDANSETRON 4 MG/2 ML INJ IV ONE (03:01)
[2021-08-16] MEDS ORDERED: ACETAMINOPHEN W/CODEINE 300-30 MG TAB PO ONE (03:02)
[2021-08-16 03:03] LABS: Bilirubin,Urine NEG (Negative); Blood,Urine SM (Negative); Color,Urine Yellow (Yellow); Hyaline Casts,Urine 2 /LPF; Mucus,Urine FEW /HPF; Urobilinogen,Urine < 2.0 mg/dL (<2.0)
[2021-08-16] MEDS ORDERED: ONDANSETRON 4 MG/2 ML INJ ONE (03:54)
[2021-08-16] MEDS ORDERED: SODIUM CHLORIDE 0.9% 1000 ML 0 ML ONE (03:55)
--- NOTE | 2021-08-16 04:46 | Emergency Department Report ---
ED Abdominal Pain HPI - General Chief Complaint: Abdominal Pain Stated Complaint: ABDOMINAL PAIN Time Seen by Provider: 08/16/21 02:59 Source: patient, EMS Mode of arrival: Ambulatory Limitations: No Limitations - History of Present Illness Initial Comments: Patient 61-year-old man with a history of hypertension chronic renal disease and diverticulitis who presents for left flank pain status post ground-level fall 1 yesterday. Patient states he tripped going across the street. Has fevers, chills, diarrhea, dizziness or lightheadedness. Patient states this was an accident. Patient advises that he does not agree with CT scan as this is not a diverticulitis flare. Patient is tolerating p.o. intake without symptoms at this time. Patient is voiding without symptoms at this time. MD Complaint: flank pain Severity scale (0 -10): 10 - Related Data Home Medications Medication Instructions Recorded Confirmed Last Taken Divalproex Dr [Depakote Dr] 500 mg PO QDAY 11/26/16 04/27/17 04/27/17 Previous Rx's Medication Instructions Recorded Last Taken Type amLODIPine 5 mg PO DAILY #90 tab 04/28/16 05/18/16 Rx Acetaminophen [Non-Aspirin Extra 500 mg PO Q6HR PRN #30 tablet 05/03/19 Unknown Rx Strength] Famotidine [Pepcid] 20 mg PO BID #10 tablet 05/03/19 Unknown Rx Dicyclomine [Bentyl] 20 mg PO QID PRN #20 tablet 04/23/21 Unknown Rx Ondansetron [Zofran ODT TAB] 4 mg PO Q6HR PRN #20 tab.rapdis 04/23/21 Unknown Rx Promethazine [Phenergan] 12.5 mg [place] Q6H PRN #7 supp.rect 04/23/21 Unknown Rx Sucralfate [Carafate] 1 gm PO Q12H #120 04/23/21 Unknown Rx Ondansetron [Zofran Odt] 4 mg PO Q8HR PRN #10 tab.rapdis 06/10/21 Unknown Rx Acetaminophen/Codeine [Tylenol 1 tab PO Q8H PRN #9 tab 08/16/21 Unknown Rx /Codeine # 3 tab] Allergies Allergy/AdvReac Type Severity Reaction Status Date / Time No Known Allergies Allergy Verified 07/22/21 21:40 ED Review of Systems ROS: Stated complaint: ABDOMINAL PAIN Other details as noted in HPI Constitutional: denies: chills, fever Eyes: denies: eye pain, eye discharge, vision change ENT: denies: ear pain, throat pain Respiratory: denies: cough, shortness of breath, wheezing Cardiovascular: denies: chest pain, palpitations Endocrine: no symptoms reported Gastrointestinal: abdominal pain (left flank). denies: nausea, vomiting Genitourinary: denies: urgency, dysuria Musculoskeletal: denies: back pain, joint swelling, arthralgia Skin: denies: rash, lesions Neurological: denies: headache, weakness, paresthesias, vertigo Psychiatric: denies: anxiety, depression Hematological/Lymphatic: denies: easy bleeding, easy bruising ED Past Medical Hx - Past Medical History Previous Medical History?: Yes Hx Hypertension: Yes Hx Renal Disease: Yes Hx Arthritis: Yes (HANDS,KNEES) Additional medical history: crohn's. Chronic Knee Pain - Surgical History Past Surgical History?: No - Social History Smoking Status: Never Smoker Substance Use Type: Alcohol - Medications Home Medications: Home Medications Medication Instructions Recorded Confirmed Last Taken Type amLODIPine 5 mg PO DAILY #90 tab 04/28/16 04/27/17 05/18/16 Rx Divalproex [Aanstasia [place]] 500 mg PO QDAY 11/26/16 04/27/17 04/27/17 History Acetaminophen [Non-Aspirin Extra 500 mg PO Q6HR PRN #30 tablet 05/03/19 Unknown Rx Strength] Famotidine [Pepcid] 20 mg PO BID #10 tablet 05/03/19 Unknown Rx Dicyclomine [Bentyl] 20 mg PO QID PRN #20 tablet 04/23/21 Unknown Rx Ondansetron [Zofran ODT TAB] 4 mg PO Q6HR PRN #20 tab.rapdis 04/23/21 Unknown Rx Promethazine [Phenergan] 12.5 mg [place] Q6H PRN #7 supp.rect 04/23/21 Unknown Rx Sucralfate [Carafate] 1 gm PO Q12H #120 04/23/21 Unknown Rx Ondansetron [Zofran Odt] 4 mg PO Q8HR PRN #10 tab.rapdis 06/10/21 Unknown Rx Acetaminophen/Codeine [Tylenol 1 tab PO Q8H PRN #9 tab 08/16/21 Unknown Rx /Codeine # 3 tab] ED Physical Exam - General Limitations: No Limitations General appearance: alert, in no apparent distress - Head Head exam: Present: atraumatic, normocephalic - Eye Eye exam: Present: normal appearance, EOMI Pupils: Present: normal accommodation - ENT ENT exam: Present: mucous membranes moist - Neck Neck exam: Present: normal inspection - Respiratory Respiratory exam: Present: normal lung sounds bilaterally. Absent: respiratory distress, wheezes, stridor, chest wall tenderness - Cardiovascular Cardiovascular Exam: Present: regular rate, normal rhythm, normal heart sounds. Absent: systolic murmur, diastolic murmur, rubs, gallop - GI/Abdominal GI/Abdominal exam: Present: soft, tenderness (left flank), normal bowel sounds. Absent: distended, guarding, rebound, rigid, bruit, hernia - Expanded GI/Abdominal Exam Expanded GI/Abdominal exam: Absent: psoas sign, obturator sign, heel tap sign, Garcia's sign, Rovsing's sign, tenderness at Mcburney's Point - Rectal Rectal exam: Present: deferred - Extremities Exam Extremities exam: Present: normal inspection, full ROM, normal capillary refill. Absent: tenderness - Back Exam Back exam: Present: normal inspection, full ROM, CVA tenderness (L). Absent: CVA tenderness (R) - Neurological Exam Neurological exam: Present: alert, oriented X3, CN II-XII intact, normal gait - Expanded Neurological Exam Expanded Patient oriented to: Present: person, place, time Speech: Present: fluid speech Motor strength exam: RUE: 5, LUE: 5, RLE: 5, LLE: 5 Best Eye Response (Leonel): (4) open spontaneously Best Motor Response (Leonel): (6) obeys commands Best Verbal Response (Edon): (5) oriented Edon Total: 15 - Psychiatric Psychiatric exam: Present: normal affect, normal mood - Skin Skin exam: Present: warm, dry, intact, normal color. Absent: rash ED Course Vital Signs 08/15/21 19:38 Temperature 99 F Pulse Rate 107 H Respiratory 18 Rate Blood Pressure 135/77 [Right] O2 Sat by Pulse 98 Oximetry ED Medical Decision Making - Lab Data Result diagrams: 08/15/21 20:49 08/15/21 20:49 Labs 08/15/21 08/15/21 08/15/21 20:49 20:49 Unknown WBC 5.4 RBC 4.04 Hgb 12.4 Hct 36.6 MCV 90 MCH 31 MCHC 34 RDW 15.0 Plt Count 182 Lymph % (Auto) 16.8 [place] % (Auto) 14.3 H Eos % (Auto) 1.7 Baso % (Auto) 0.7 Lymph # (Auto) 0.9 L [place] # (Auto) 0.8 Eos # (Auto) 0.1 Baso # (Auto) 0.0 Seg Neutrophils % 66.5 Seg Neutrophils # 3.6 Sodium 136 L Potassium 3.7 Chloride 100.7 Carbon Dioxide 16 L Anion Gap 23 BUN 26 H Creatinine 2.1 H Estimated GFR 39 BUN/Creatinine Ratio 12 Glucose 110 H Calcium 9.2 Total Bilirubin 0.20 AST 26 ALT 18 Alkaline Phosphatase 81 Total Protein 6.9 Albumin 3.6 L Albumin/Globulin Ratio 1.1 Urine Color Yellow Urine Turbidity Clear Urine pH 5.0 Ur Specific [place] 1.017 Urine Protein 100 mg/dl Urine Glucose (UA) Neg Urine Ketones Neg Urine Blood Sm Urine Nitrite Neg Urine Bilirubin Neg Urine Urobilinogen < 2.0 Ur Leukocyte Esterase Neg Urine WBC (Auto) 1.0 Urine RBC (Auto) 1.0 Hyaline Casts 2 Urine Mucus Few - Medical Decision Making Labs noted at baseline for this patient with creatinine 2.01. Patient declines CT scan however patient is tolerating p.o. intake. There are no abdominal peritoneal signs on exam. Patient advises pain is relieved. Plan DC to home, tylenol as needed pain, follow-up with primary care doctor 2 to 3 days. Return to emergency department should symptoms worsen. Critical care attestation.: If time is entered above; I have spent that time in minutes in the direct care of this critically ill patient, excluding procedure time. ED Disposition Clinical Impression: Flank pain Disposition: HOME / SELF CARE / HOMELESS Is pt being admited?: No Does the pt Need Aspirin: No Condition: Stable Instructions: Flank Pain, Adult, [id number] Additional Instructions: Take medications as prescribed, follow-up with your doctor in 2 to 3 days. Return to emergency department should symptoms worsen. Prescriptions: Acetaminophen/Codeine [Tylenol /Codeine # 3 tab] 1 tab PO Q8H PRN #9 tab PRN Reason: pain Referrals: [facility] [Provider Group] - 3-5 Days DEMARIO ELLIOTT MD [Staff Physician] - 3-5 Days Forms: Work/School Release Form(ED) Time of Disposition: 04:54
== END 2021-08-16 06:59 | disposition home or self-care (01) ==
LOC: ED 19:32
DX: R10.9 Unspecified abdominal pain (principal); I10 Essential (primary) hypertension; F10.20 Alcohol dependence, uncomplicated
CPT/HCPCS: 36415; 80053; 81001; 85025; 99284; Q0162; J2405; J7030

== ENCOUNTER 2021-09-18 16:43 | Emergency (ER) | payer MEDICAID ==
[2021-09-18 17:03] VITALS: BP 173/110
[2021-09-19] MEDS ORDERED: predniSONE 20 MG TAB PO ONE (00:01)
[2021-09-19] MEDS ORDERED: oxyCODONE /ACETAMINOPHEN 5-325MG TAB PO ONE (00:01)
[2021-09-19] MEDS ORDERED: IBUPROFEN 600 MG TAB PO ONE (00:02)
[2021-09-19] MEDS ORDERED: ONDANSETRON 4 MG ODT TAB PO ONE (00:02)
--- NOTE | 2021-09-19 00:21 | Emergency Department Report ---
ED Extremity Problem HPI - General Chief complaint: Extremity Injury, Lower Stated complaint: KNEE PAIN Source: EMS Mode of arrival: Ambulatory Limitations: No Limitations - History of Present Illness Initial comments: Patient is a 61-year-old -[place] male with a history of chronic kidney disease, gout, osteoarthritis, Crohn's disease and hypertension who presents to the ED with complaint of acute onset persistent right knee pain and swelling after mowing his lawn about 8 hours ago. Patient states that the pain is constant and persistent and that he is unable to bear weight on his right leg because of worsening right knee pain. Patient denies fall, traumatic injury, nausea and vomiting, numbness and tingling or weakness of lower extremities bilaterally, low back pain, heavy lifting, chest pain or shortness of breath, fever and chills. MD Complaint: extremity pain -: Sudden, hour(s) (8) Location: right, lower extremity (Right knee pain), knee History of Same: Yes (Chronic gout; chronic osteoarthritis) -: Yes arthralgia Radiation: distal (Right knee pain) Severity scale (0 -10): 7 Quality: aching, sharp Consistency: constant Improves with: nothing Worsens with: weight bearing, walking, exertion, palpation Associated Symptoms: denies other symptoms, arthralgias (Right knee pain). denies: chest pain, shortness of breath, fever, myalgias - Related Data Home Medications Medication Instructions Recorded Confirmed Last Taken Tae Clinton [Anastasia Clinton] 500 mg PO QDAY 11/26/16 04/27/17 04/27/17 Previous Rx's Medication Instructions Recorded Last Taken Type amLODIPine 5 mg PO DAILY #90 tab 04/28/16 05/18/16 Rx Acetaminophen [Non-Aspirin Extra 500 mg PO Q6HR PRN #30 tablet 05/03/19 Unknown Rx Strength] Famotidine [Pepcid] 20 mg PO BID #10 tablet 05/03/19 Unknown Rx Dicyclomine [Bentyl] 20 mg PO QID PRN #20 tablet 04/23/21 Unknown Rx Ondansetron [Zofran ODT TAB] 4 mg PO Q6HR PRN #20 tab.rapdis 04/23/21 Unknown Rx Promethazine [Phenergan] 12.5 mg [place] Q6H PRN #7 supp.rect 04/23/21 Unknown Rx Sucralfate [Carafate] 1 gm PO Q12H #120 04/23/21 Unknown Rx Ondansetron [Zofran Odt] 4 mg PO Q8HR PRN #10 tab.rapdis 06/10/21 Unknown Rx Acetaminophen/Codeine [Tylenol 1 tab PO Q8H PRN #9 tab 08/16/21 Unknown Rx /Codeine # 3 tab] Acetaminophen [Tylenol] 1,000 mg PO Q6HR PRN #30 tablet 09/19/21 Unknown Rx predniSONE [Deltasone] 60 mg PO QDAY #15 tab 09/19/21 Unknown Rx traMADoL [Ultram] 50 mg PO Q6HR PRN #12 tablet 09/19/21 Unknown Rx Allergies Allergy/AdvReac Type Severity Reaction Status Date / Time No Known Allergies Allergy Verified 07/22/21 21:40 ED Review of Systems ROS: Stated complaint: KNEE PAIN Other details as noted in HPI Constitutional: denies: chills, fever Eyes: denies: eye pain, eye discharge, vision change ENT: denies: ear pain, throat pain Respiratory: denies: cough, shortness of breath, wheezing Cardiovascular: denies: chest pain, palpitations Endocrine: no symptoms reported Gastrointestinal: denies: abdominal pain, nausea, diarrhea Genitourinary: denies: urgency, dysuria Musculoskeletal: arthralgia (Right knee pain). denies: back pain, joint swelling Skin: denies: rash, lesions Neurological: denies: headache, weakness, paresthesias Psychiatric: denies: anxiety, depression Hematological/Lymphatic: denies: easy bleeding, easy bruising ED Past Medical Hx - Past Medical History Hx Hypertension: Yes Hx Renal Disease: Yes Hx Arthritis: Yes (HANDS,KNEES) Additional medical history: crohn's. Chronic Knee Pain - Social History Smoking Status: Never Smoker Substance Use Type: Alcohol - Medications Home Medications: Home Medications Medication Instructions Recorded Confirmed Last Taken Type amLODIPine 5 mg PO DAILY #90 tab 04/28/16 04/27/17 05/18/[address] [Depakote Dr] 500 mg PO QDAY 11/26/16 04/27/17 04/27/17 History Acetaminophen [Non-Aspirin Extra 500 mg PO Q6HR PRN #30 tablet 05/03/19 Unknown Rx Strength] Famotidine [Pepcid] 20 mg PO BID #10 tablet 05/03/19 Unknown Rx Dicyclomine [Bentyl] 20 mg PO QID PRN #20 tablet 04/23/21 Unknown Rx Ondansetron [Zofran ODT TAB] 4 mg PO Q6HR PRN #20 tab.rapdis 04/23/21 Unknown Rx Promethazine [Phenergan] 12.5 mg [place] Q6H PRN #7 supp.rect 04/23/21 Unknown Rx Sucralfate [Carafate] 1 gm PO Q12H #120 04/23/21 Unknown Rx Ondansetron [Zofran Odt] 4 mg PO Q8HR PRN #10 tab.rapdis 06/10/21 Unknown Rx Acetaminophen/Codeine [Tylenol 1 tab PO Q8H PRN #9 tab 08/16/21 Unknown Rx /Codeine # 3 tab] Acetaminophen [Tylenol] 1,000 mg PO Q6HR PRN #30 tablet 09/19/21 Unknown Rx predniSONE [Deltasone] 60 mg PO QDAY #15 tab 09/19/21 Unknown Rx traMADoL [Ultram] 50 mg PO Q6HR PRN #12 tablet 09/19/21 Unknown Rx ED Physical Exam - General Limitations: No Limitations General appearance: alert, in no apparent distress - Head Head exam: Present: atraumatic, normocephalic, normal inspection - Eye Eye exam: Present: normal appearance, PERRL, EOMI Pupils: Present: normal accommodation - ENT ENT exam: Present: normal exam, normal orophraynx, mucous membranes moist, TM's normal bilaterally, normal external ear exam - Neck Neck exam: Present: normal inspection, full ROM. Absent: tenderness - Respiratory Respiratory exam: Present: normal lung sounds bilaterally. Absent: respiratory distress, wheezes, rales, rhonchi, chest wall tenderness, accessory muscle use, decreased breath sounds, prolonged expiratory - Cardiovascular Cardiovascular Exam: Present: regular rate, normal rhythm, normal heart sounds. Absent: systolic murmur, diastolic murmur, rubs, gallop - GI/Abdominal GI/Abdominal exam: Present: soft, normal bowel sounds. Absent: tenderness, guarding, rebound, hyperactive bowel sounds, hypoactive bowel sounds, organomegaly, mass, bruit - Rectal Rectal exam: Present: deferred - Extremities Exam Extremities exam: Present: normal inspection, tenderness (Palpable right knee tenderness with limited range of motion due to pain), normal capillary refill, joint swelling. Absent: full ROM (Limited range of motion of right knee due to pain), calf tenderness - Back Exam Back exam: Present: normal inspection, full ROM. Absent: tenderness, CVA tenderness (R), CVA tenderness (L), muscle spasm, paraspinal tenderness, vertebral tenderness - Neurological Exam Neurological exam: Present: alert, oriented X3, CN II-XII intact, normal gait, reflexes normal - Psychiatric Psychiatric exam: Present: normal affect, normal mood - Skin Skin exam: Present: warm, dry, intact, normal color. Absent: rash ED Course Vital Signs 09/18/21 17:03 Temperature 98.0 F Pulse Rate 94 H Respiratory 15 Rate Blood Pressure 173/110 [Left] O2 Sat by Pulse 99 Oximetry ED Medical Decision Making - Medical Decision Making This is a 61-year-old -[place] male with a history of chronic kidney disease, gout, osteoarthritis, Crohn's disease and hypertension who presents to the ED with complaint of acute onset persistent right knee pain and swelling after mowing his lawn about 8 hours ago. Patient states that the pain is constant and persistent and that he is unable to bear weight on his right leg because of worsening right knee pain. In the ED, patient is is alert and oriented x3 and is not in any distress. Patient however appears to be in significant pain. Patient was treated for pain in the ED and on reevaluation, patient's pain is well controlled medication. Patient will discharge home on pain medications and advised to follow-up with his primary care physician in 5 to 7 days for reevaluation. Patient was advised return to the ED immediately if symptoms get worse. - Differential Diagnosis Chronic osteoarthritis; chronic gout; muscle strain; tendinitis Critical care attestation.: If time is entered above; I have spent that time in minutes in the direct care of this critically ill patient, excluding procedure time. ED Disposition Clinical Impression: Chronic osteoarthritis, Chronic pain of right knee, Chronic gouty arthropathy Disposition: HOME / SELF CARE / HOMELESS Is pt being admited?: No Does the pt Need Aspirin: No Condition: Stable Instructions: Low-Purine Eating Plan, Chronic Knee Pain, Adult, [id number], Osteoarthritis, Arthritis, [id number], Joint Pain, [id number], Chronic Knee Pain, Adult Additional Instructions: Take medication with food, drink plenty of fluids and follow-up with your primary care physician in 7 to 10 days for reevaluation. Return to the ED immediately if symptoms get worse. Prescriptions: Acetaminophen [Tylenol] 1,000 mg PO Q6HR PRN #30 tablet PRN Reason: Pain , Severe (7-10) predniSONE [Deltasone] 60 mg PO QDAY #15 tab traMADoL [Ultram] 50 mg PO Q6HR PRN #12 tablet PRN Reason: Pain Referrals: JOHN TEIXEIRA MD [Staff Physician] - 7-10 days Time of Disposition: 00:27 Print Language: SLOVAK
== END 2021-09-19 01:30 | disposition home or self-care (01) ==
LOC: ED 16:43
DX: M25.561 Pain in right knee (principal); G89.29 Other chronic pain; M17.0 Bilateral primary osteoarthritis of knee; M1A.9XX0 Chronic gout, unspecified, without tophus (tophi); I12.9 Hypertensive chronic kidney disease with stage 1 through stage 4 chronic kidney disease, or unspecified chronic kidney disease; N18.9 Chronic kidney disease, unspecified
CPT/HCPCS: 99283; J3490; Q0162

== ENCOUNTER 2021-10-06 20:47 | Emergency (ER) | payer MEDICAID ==
[2021-10-06 21:57] VITALS: BP 163/84
== END 2021-10-07 05:27 | disposition left against medical advice (07) ==
LOC: ED 20:47
DX: R10.9 Unspecified abdominal pain (principal); Z53.21 Procedure and treatment not carried out due to patient leaving prior to being seen by health care provider

== ENCOUNTER 2021-10-12 14:04 | Emergency (ER) | payer MEDICAID ==
[2021-10-12] MEDS ORDERED: oxyCODONE /ACETAMINOPHEN 5-325MG TAB PO ONE (18:55)
[2021-10-12] MEDS ORDERED: predniSONE 20 MG TAB PO ONE (18:55)
[2021-10-12] MEDS ORDERED: ONDANSETRON 4 MG ODT TAB PO ONE (18:55)
[2021-10-12] MEDS ORDERED: COLCHICINE 0.6 MG TAB PO ONE ×2 (18:56→21:00)
--- NOTE | 2021-10-12 19:19 | Emergency Department Report ---
ED Extremity Problem HPI - General Chief complaint: Pain General Stated complaint: LEFT ARM SWELLING Source: EMS Mode of arrival: Stretcher Limitations: No Limitations - History of Present Illness Initial comments: Patient is a 61-year-old -[place] male with a history of Crohn's disease, chronic pain syndrome, chronic osteoarthritis, chronic gouty arthropathy, hypertension, and CKD who presents to the ED with complaint of acute exacerbation of his chronic pain characterized by left wrist pain, left hand pain and swelling, and left elbow pain for the last 1 week, worse in the last 2 days. Patient states that he is unable perform any active range of motion of the left wrist and hand because of worsening pain. Patient states that he believes that this is his gout flaring up. Patient denies fall, traumatic injury, heavy lifting, chest pain, shortness of breath, headache, dizziness, nausea and vomiting, heavy lifting, fever and chills. MD Complaint: extremity pain (left wrist and hand pain, swelling), extremity swelling (left wrist and hand pain and swelling), joint swelling, joint paint, other (Gouty arthropathy) -: Sudden, week(s) (1) Location: left, upper extremity (Left wrist and hand pain and swelling), elbow History of Same: Yes (chronic gouty arthripathy) -: Yes arthralgia, No fever, No associated dyspnea, No associated chest pain Radiation: distal Severity scale (0 -10): 10 Quality: aching, sharp Consistency: constant Improves with: nothing Worsens with: weight bearing, exertion, palpation Associated Symptoms: denies other symptoms, arthralgias (Swollen painful left forearm, left elbow, left wrist and left hand pain). denies: chest pain, shortness of breath, fever, myalgias, rash - Related Data Home Medications Medication Instructions Recorded Confirmed Last Taken Divalproex Dr [Depakote Dr] 500 mg PO QDAY 11/26/16 04/27/17 04/27/17 Previous Rx's Medication Instructions Recorded Last Taken Type amLODIPine 5 mg PO DAILY #90 tab 04/28/16 05/18/16 Rx Acetaminophen [Non-Aspirin Extra 500 mg PO Q6HR PRN #30 tablet 05/03/19 Unknown Rx Strength] Famotidine [Pepcid] 20 mg PO BID #10 tablet 05/03/19 Unknown Rx Dicyclomine [Bentyl] 20 mg PO QID PRN #20 tablet 04/23/21 Unknown Rx Ondansetron [Zofran ODT TAB] 4 mg PO Q6HR PRN #20 tab.rapdis 04/23/21 Unknown Rx Promethazine [Phenergan] 12.5 mg [place] Q6H PRN #7 supp.rect 04/23/21 Unknown Rx Sucralfate [Carafate] 1 gm PO Q12H #120 04/23/21 Unknown Rx Ondansetron [Zofran Odt] 4 mg PO Q8HR PRN #10 tab.rapdis 06/10/21 Unknown Rx Acetaminophen/Codeine [Tylenol 1 tab PO Q8H PRN #9 tab 08/16/21 Unknown Rx /Codeine # 3 tab] Acetaminophen [Acetaminophen TAB] 1,000 mg PO Q6HR PRN #30 tablet 10/12/21 Unknown Rx predniSONE [Deltasone] 60 mg PO QDAY #15 tab 10/12/21 Unknown Rx traMADoL [Ultram 50 MG tab] 50 mg PO Q6HR PRN #12 tablet 10/12/21 Unknown Rx Allergies Allergy/AdvReac Type Severity Reaction Status Date / Time No Known Allergies Allergy Verified 07/22/21 21:40 ED Review of Systems ROS: Stated complaint: LEFT ARM SWELLING Other details as noted in HPI Constitutional: denies: chills, fever Eyes: denies: eye pain, eye discharge, vision change ENT: denies: ear pain, throat pain Respiratory: denies: cough, shortness of breath, wheezing Cardiovascular: denies: chest pain, palpitations Endocrine: no symptoms reported Gastrointestinal: denies: abdominal pain, nausea, diarrhea Genitourinary: denies: urgency, dysuria Musculoskeletal: joint swelling (Left wrist and hand pain and swelling), arthralgia (Left wrist, left elbow and left hand pain with swelling), myalgia. denies: back pain Skin: denies: rash, lesions Neurological: denies: headache, weakness, paresthesias Psychiatric: denies: anxiety, depression Hematological/Lymphatic: denies: easy bleeding, easy bruising ED Past Medical Hx - Past Medical History Hx Hypertension: Yes Hx Renal Disease: Yes (CKD) Hx Arthritis: Yes (HANDS,KNEES) Additional medical history: crohn's. Chronic Knee Pain - Social History Smoking Status: Current Every Day Smoker Substance Use Type: Alcohol - Medications Home Medications: Home Medications Medication Instructions Recorded Confirmed Last Taken Type amLODIPine 5 mg PO DAILY #90 tab 04/28/16 04/27/17 05/18/[address] [Depakojordy Dr] 500 mg PO QDAY 11/26/16 04/27/17 04/27/17 History Acetaminophen [Non-Aspirin Extra 500 mg PO Q6HR PRN #30 tablet 05/03/19 Unknown Rx Strength] Famotidine [Pepcid] 20 mg PO BID #10 tablet 05/03/19 Unknown Rx Dicyclomine [Bentyl] 20 mg PO QID PRN #20 tablet 04/23/21 Unknown Rx Ondansetron [Zofran ODT TAB] 4 mg PO Q6HR PRN #20 tab.rapdis 04/23/21 Unknown Rx Promethazine [Phenergan] 12.5 mg RI Q6H PRN #7 supp.rect 04/23/21 Unknown Rx Sucralfate [Carafate] 1 gm PO Q12H #120 04/23/21 Unknown Rx Ondansetron [Zofran Odt] 4 mg PO Q8HR PRN #10 tab.rapdis 06/10/21 Unknown Rx Acetaminophen/Codeine [Tylenol 1 tab PO Q8H PRN #9 tab 08/16/21 Unknown Rx /Codeine # 3 tab] Acetaminophen [Acetaminophen TAB] 1,000 mg PO Q6HR PRN #30 tablet 10/12/21 Unknown Rx predniSONE [Deltasone] 60 mg PO QDAY #15 tab 10/12/21 Unknown Rx traMADoL [Ultram 50 MG tab] 50 mg PO Q6HR PRN #12 tablet 10/12/21 Unknown Rx ED Physical Exam - General Limitations: No Limitations General appearance: alert, in no apparent distress - Head Head exam: Present: atraumatic, normocephalic, normal inspection - Eye Eye exam: Present: normal appearance, PERRL, EOMI Pupils: Present: normal accommodation - ENT ENT exam: Present: normal exam, normal orophraynx, mucous membranes moist, TM's normal bilaterally, normal external ear exam - Neck Neck exam: Present: normal inspection, full ROM. Absent: tenderness - Respiratory Respiratory exam: Present: normal lung sounds bilaterally. Absent: respiratory distress, wheezes, rales, rhonchi, stridor, chest wall tenderness, accessory muscle use, decreased breath sounds, prolonged expiratory - Cardiovascular Cardiovascular Exam: Present: normal rhythm, tachycardia, normal heart sounds. Absent: systolic murmur, diastolic murmur, rubs, gallop - GI/Abdominal GI/Abdominal exam: Present: soft, normal bowel sounds. Absent: tenderness, guarding, rebound, hyperactive bowel sounds, hypoactive bowel sounds, organomegaly, mass - Extremities Exam Extremities exam: Present: normal inspection, full ROM, tenderness (Palpable left wrist, left hand and left elbow tenderness with mild swelling), normal capillary refill, joint swelling. Absent: calf tenderness - Back Exam Back exam: Present: normal inspection, full ROM. Absent: tenderness, CVA tenderness (R), CVA tenderness (L), muscle spasm, paraspinal tenderness, vertebral tenderness - Neurological Exam Neurological exam: Present: alert, oriented X3, CN II-XII intact, normal gait, reflexes normal - Psychiatric Psychiatric exam: Present: normal affect, normal mood - Skin Skin exam: Present: warm, dry, intact, normal color. Absent: rash ED Course Vital Signs 10/12/21 14:19 Temperature 98.7 F Pulse Rate 101 H Respiratory 16 Rate Blood Pressure 156/121 [Right] O2 Sat by Pulse 98 Oximetry ED Medical Decision Making - Medical Decision Making This is a 61-year-old -[place] male with a history of Crohn's disease, chronic pain syndrome, chronic osteoarthritis, chronic gouty arthropathy, hypertension, and CKD who presents to the ED with complaint of acute exacerbation of his chronic pain characterized by left wrist pain, left hand angel n and swelling, and left elbow pain for the last 1 week, worse in the last 2 days. Patient states that he is unable perform any active range of motion of the left wrist and hand because of worsening pain. Patient states that he believes that this is his gout flaring up. In the ED, patient is alert and oriented x3 and is not in any distress. Patient was treated in the ED for pain. Based on the history and physical exam findings, the patient was discharged home on medications and advised to follow-up with his primary care physician in 7 to 10 days for reevaluation or return to the ED immediately if symptoms get worse. - Differential Diagnosis Gouty arthropathy; chronic osteoarthritis; chronic pain Critical care attestation.: If time is entered above; I have spent that time in minutes in the direct care of this critically ill patient, excluding procedure time. ED Disposition Clinical Impression: Chronic gouty arthropathy, Chronic pain of left wrist, Chronic pain syndrome Disposition: HOME / SELF CARE / HOMELESS Is pt being admited?: No Does the pt Need Aspirin: No Condition: Stable Instructions: Low-Purine Eating Plan, Joint Pain, [id number], Wrist Pain, Adult, [id number] Additional Instructions: Take medication with food, drink plenty of fluids, follow-up with your primary care physician in 7 to 10 days for reevaluation. Return to the ED immediately if symptoms get worse. Prescriptions: Acetaminophen [Acetaminophen TAB] 1,000 mg PO Q6HR PRN #30 tablet PRN Reason: Pain , Severe (7-10) predniSONE [Deltasone] 60 mg PO QDAY #15 tab traMADoL [Ultram 50 MG tab] 50 mg PO Q6HR PRN #12 tablet PRN Reason: Pain Referrals: JOHN TEIXEIRA MD [Staff Physician] - 3-5 Days Time of Disposition: 19:20 Print Language: YORUBA
[2021-10-12 20:57] VITALS: BP 181/116
== END 2021-10-12 20:57 | disposition home or self-care (01) ==
LOC: ED 14:04
DX: M1A.9XX0 Chronic gout, unspecified, without tophus (tophi) (principal); G89.29 Other chronic pain; M25.532 Pain in left wrist; F17.200 Nicotine dependence, unspecified, uncomplicated; F10.20 Alcohol dependence, uncomplicated; I10 Essential (primary) hypertension
CPT/HCPCS: 99283; J3490; Q0162

== ENCOUNTER 2021-10-25 17:09 | Emergency (ER) | payer MEDICAID ==
[2021-10-25] MEDS ORDERED: SODIUM CHLORIDE 0.9% 1000 ML 1,000 ML IV ONE (22:49)
[2021-10-25] MEDS ORDERED: MORPHINE 2 MG/1 ML INJ IM ONE (22:49)
[2021-10-25] MEDS ORDERED: ONDANSETRON 4 MG/2 ML INJ IV ONE (22:49)
--- NOTE | 2021-10-25 22:58 | Emergency Department Report ---
ED General Adult HPI - General Chief complaint: Abdominal Pain Stated complaint: ABD PAIN PUI?: No Time Seen by Provider: 10/25/21 22:41 Source: patient, EMS Mode of arrival: Stretcher Limitations: No Limitations - History of Present Illness Initial comments: Pleasant 61-year-old male with medical history of hypertension Crohn's disease who is current on any medication and also chronic kidney disease came in today with concerns of right-sided abdominal discomfort which occur impression started yesterday around early in the morning at midnight. Patient also endorsed nausea. According patient he was noted that this of bright red blood per rectum yesterday but none today. Patient current denies any other discomfort dizziness fever chill night sweat dizziness blurred vision lightheadedness headache tinnitus ear pain runny nose sore throat loss of taste or smell chest pain palpitation short breath cough vomiting diarrhea constipation dysuria myalgia arthralgia new rash heat or cold intolerance. Patient endorse drinking beer 1-2 cans daily. Severity scale (0 -10): 0 - Related Data Home Medications Medication Instructions Recorded Confirmed Last Taken Tae Clinton [Anastasia Clinton] 500 mg PO QDAY 11/26/16 04/27/17 04/27/17 Previous Rx's Medication Instructions Recorded Last Taken Type amLODIPine 5 mg PO DAILY #90 tab 04/28/16 05/18/16 Rx Acetaminophen [Non-Aspirin Extra 500 mg PO Q6HR PRN #30 tablet 05/03/19 Unknown Rx Strength] Famotidine [Pepcid] 20 mg PO BID #10 tablet 05/03/19 Unknown Rx Dicyclomine [Bentyl] 20 mg PO QID PRN #20 tablet 04/23/21 Unknown Rx Ondansetron [Zofran ODT TAB] 4 mg PO Q6HR PRN #20 tab.rapdis 04/23/21 Unknown Rx Promethazine [Phenergan] 12.5 mg [place] Q6H PRN #7 supp.rect 04/23/21 Unknown Rx Sucralfate [Carafate] 1 gm PO Q12H #120 04/23/21 Unknown Rx Ondansetron [Zofran Odt] 4 mg PO Q8HR PRN #10 tab.rapdis 06/10/21 Unknown Rx Acetaminophen/Codeine [Tylenol 1 tab PO Q8H PRN #9 tab 08/16/21 Unknown Rx /Codeine # 3 tab] Acetaminophen [Acetaminophen TAB] 1,000 mg PO Q6HR PRN #30 tablet 10/12/21 Unknown Rx predniSONE [Deltasone] 60 mg PO QDAY #15 tab 10/12/21 Unknown Rx traMADoL [Ultram 50 MG tab] 50 mg PO Q6HR PRN #12 tablet 10/12/21 Unknown Rx Allergies Allergy/AdvReac Type Severity Reaction Status Date / Time No Known Allergies Allergy Verified 10/25/21 17:15 ED Review of Systems ROS: Stated complaint: ABD PAIN Other details as noted in HPI Constitutional: see HPI Eyes: as per HPI ENT: as per HPI Respiratory: no symptoms reported Cardiovascular: as per HPI Endocrine: see HPI Gastrointestinal: abdominal pain, nausea, other (BRBPR YESTERDAY; NOT TODAY). denies: vomiting, diarrhea, constipation, hematemesis, melena Genitourinary: as per HPI Musculoskeletal: as per HPI Skin: as per HPI Neurological: as per HPI Psychiatric: as per HPI Hematological/Lymphatic: as per HPI ED Past Medical Hx - Past Medical History Previous Medical History?: Yes Hx Hypertension: Yes Hx Renal Disease: Yes (CKD) Hx Arthritis: Yes (HANDS,KNEES) Additional medical history: crohn's. Chronic Knee Pain - Social History Smoking Status: Never Smoker Substance Use Type: None - Medications Home Medications: Home Medications Medication Instructions Recorded Confirmed Last Taken Type amLODIPine 5 mg PO DAILY #90 tab 04/28/16 04/27/17 05/18/[address] [Depakote Dr] 500 mg PO QDAY 11/26/16 04/27/17 04/27/17 History Acetaminophen [Non-Aspirin Extra 500 mg PO Q6HR PRN #30 tablet 05/03/19 Unknown Rx Strength] Famotidine [Pepcid] 20 mg PO BID #10 tablet 05/03/19 Unknown Rx Dicyclomine [Bentyl] 20 mg PO QID PRN #20 tablet 04/23/21 Unknown Rx Ondansetron [Zofran ODT TAB] 4 mg PO Q6HR PRN #20 tab.rapdis 04/23/21 Unknown Rx Promethazine [Phenergan] 12.5 mg [place] Q6H PRN #7 supp.rect 04/23/21 Unknown Rx Sucralfate [Carafate] 1 gm PO Q12H #120 04/23/21 Unknown Rx Ondansetron [Zofran Odt] 4 mg PO Q8HR PRN #10 tab.rapdis 06/10/21 Unknown Rx Acetaminophen/Codeine [Tylenol 1 tab PO Q8H PRN #9 tab 08/16/21 Unknown Rx /Codeine # 3 tab] Acetaminophen [Acetaminophen TAB] 1,000 mg PO Q6HR PRN #30 tablet 10/12/21 Unknown Rx predniSONE [Deltasone] 60 mg PO QDAY #15 tab 10/12/21 Unknown Rx traMADoL [Ultram 50 MG tab] 50 mg PO Q6HR PRN #12 tablet 10/12/21 Unknown Rx ED Physical Exam - General Limitations: No Limitations General appearance: alert, in no apparent distress - Head Head exam: Present: atraumatic, normocephalic, normal inspection - Eye Eye exam: Present: normal appearance, PERRL, EOMI Pupils: Present: normal accommodation - ENT ENT exam: Present: normal exam, normal orophraynx, mucous membranes moist - Neck Neck exam: Present: normal inspection - Respiratory Respiratory exam: Present: normal lung sounds bilaterally. Absent: respiratory distress, wheezes, rales, rhonchi - Cardiovascular Cardiovascular Exam: Present: regular rate - GI/Abdominal GI/Abdominal exam: Present: soft, tenderness (RIGHT MID QUADRANT; NOT RUQ OR RLQ), normal bowel sounds. Absent: guarding, rebound, rigid, mass, bruit, pulsatile mass, hernia - Extremities Exam Extremities exam: Present: normal inspection, full ROM, tenderness - Back Exam Back exam: Present: normal inspection, full ROM, tenderness - Neurological Exam Neurological exam: Present: oriented X3 - Psychiatric Psychiatric exam: Present: normal affect, normal mood - Skin Skin exam: Present: normal color ED Course Vital Signs 10/25/21 10/25/21 10/26/21 17:13 21:58 00:49 Temperature 98.1 F Pulse Rate 95 H 73 Respiratory 16 15 Rate Blood Pressure 135/84 135/89 [Left] O2 Sat by Pulse 97 99 Oximetry 10/26/21 04:12 Temperature 98.0 F Pulse Rate 80 Respiratory 19 Rate Blood Pressure 142/94 [Left] O2 Sat by Pulse 100 Oximetry ED Medical Decision Making - Lab Data Result diagrams: 10/25/21 22:56 10/25/21 22:56 - Medical Decision Making Laboratory unremarkable from baseline and also CT scan was unremarkable as well. Patient informed to make a follow-up appointment with his primary care appointment to be seen within 3-day for the ER follow-up visit. Critical care attestation.: If time is entered above; I have spent that time in minutes in the direct care of this critically ill patient, excluding procedure time. ED Disposition Clinical Impression: Abdominal discomfort Disposition: HOME / SELF CARE / HOMELESS Is pt being admited?: No Does the pt Need Aspirin: No Condition: Stable Instructions: Abdominal Pain, Adult, [id number] Referrals: JOHN TEIXEIRA MD [Primary Care Provider] - 3-5 Days Time of Disposition: 05:22
[2021-10-25 23:15] LABS: Basophils % (Auto) 0.7 % (0.0-1.8); Eosinophils % (Auto) 0.4 % (0.0-4.3); Hemoglobin 12.8 gm/dl (11.8-15.2); Lymphocytes # (Auto) 1.1 K/mm3 (1.2-5.4); Lymphocytes % (Auto) 17.3 % (13.4-35.0); Mean Corpuscular HGB Conc 32 % (32-34); Mean Corpuscular Volume 90 fl (84-94); Monocytes # (Auto) 0.8 K/mm3 (0.0-0.8); Monocytes % (Auto) 13.1 % (0.0-7.3); Platelet Count 150 K/mm3 (140-440); Red Blood Count 4.43 M/mm3 (3.65-5.03); Red Cell Distribution Width 14.9 % (13.2-15.2)
[2021-10-25 23:23] LABS: INR 0.82 (0.87-1.13)
[2021-10-25 23:24] LABS: Partial Thromboplastin Time 26.4 Sec. (24.2-36.6)
[2021-10-25 23:32] LABS: Albumin 4.3 g/dL (3.9-5); Calcium 8.9 mg/dL (8.4-10.2)
--- NOTE | 2021-10-26 01:46 | Cat Scan Report ---
CT ABDOMEN AND PELVIS WITH CONTRAST INDICATION / CLINICAL INFORMATION: Pt complains of RIGHT sided abdominal pain. TECHNIQUE: Axial CT images were obtained through the abdomen and pelvis after 100 cc Omnipaque [address] scans at this location are performed using CT dose reduction for ALARA by means of automated exposure control. COMPARISON: CT abdomen and pelvis 07/23/2021 FINDINGS: LOWER CHEST: No significant abnormality of the imaged chest. LIVER: No focal lesion. No acute findings. GALLBLADDER: No significant abnormality. BILE DUCTS: No significant abnormality. SPLEEN: No significant abnormality. PANCREAS: No significant abnormality. ADRENALS: No significant abnormality. KIDNEYS/URETERS: No stones or hydronephrosis. No solid renal lesion. STOMACH / DUODENUM / SMALL BOWEL: The stomach, duodenum, and small bowel demonstrate no significant a bnormality. No specific abnormality of the mesentery demonstrated. COLON: No significant abnormality. APPENDIX: Small retrocecal appendix was unremarkable. PERITONEUM: No free air or free fluid are present within the abdomen or pelvis. LYMPH NODES: No significant adenopathy. AORTA / ARTERIES: No significant abnormality. IVC / VEINS: No significant abnormality. URINARY BLADDER: No significant abnormality. REPRODUCTIVE ORGANS: No significant abnormality. ADDITIONAL ABDOMINAL/PELVIC FINDINGS: None. SKELETAL SYSTEM: No significant abnormality. IMPRESSION: 1. No imaging findings to suggest etiology of the provided symptoms. Signer Name: Matt Higginbotham II, MD Signed: 10/26/2021 1:41 AM Workstation Name: [id number]
[2021-10-26 04:13] VITALS: BP 142/94
[2021-10-26 04:39] LABS: Bilirubin,Urine NEG (Negative); Blood,Urine NEG (Negative); Color,Urine Straw (Yellow); Hyaline Casts,Urine 1 /LPF; Urobilinogen,Urine < 2.0 mg/dL (<2.0); WBC,Urine < 1.0 /HPF (0.0-6.0)
[2021-10-26 04:47] LABS: Amphetamine Screen,Urine Negative; Benzodiazepines Screen,Urine Negative; Cannabinoid Screen,Urine Negative; Cocaine Screen,Urine Negative; Methadone Screen,Urine Negative; Opiate Screen,Urine Negative
== END 2021-10-26 05:40 | disposition home or self-care (01) ==
LOC: ED 17:09
DX: R10.9 Unspecified abdominal pain (principal); I10 Essential (primary) hypertension; Z79.899 Other long term (current) drug therapy
CPT/HCPCS: 36415; 74177; 80053; 80307; 81001; 82140; 82270; 83690; 85025; 85610; 85730; 96361; 96372; 96374; 99284; J2270; J2405; J7030; Q9967

== ENCOUNTER 2021-11-04 20:21 | Emergency (ER) | payer MEDICAID ==
[2021-11-04 20:36] VITALS: BP 146/92
== END 2021-11-05 09:40 | disposition left against medical advice (07) ==
LOC: ED 20:21
DX: G89.29 Other chronic pain (principal); R10.9 Unspecified abdominal pain; Z53.21 Procedure and treatment not carried out due to patient leaving prior to being seen by health care provider

== ENCOUNTER 2021-11-11 20:52 | Emergency (ER) | payer MEDICAID | END 2021-11-11 21:00 | disposition left against medical advice (07) | LOC: ED 20:52 | DX: R10.9 Unspecified abdominal pain (principal); Z53.21 Procedure and treatment not carried out due to patient leaving prior to being seen by health care provider ==

== ENCOUNTER 2021-12-24 11:56 | Emergency (ER) | payer MEDICAID ==
[2021-12-24 13:06] VITALS: BP 181/114
--- NOTE | 2021-12-24 15:23 | Emergency Department Report ---
ED ENT HPI - General Chief complaint: Dental/Oral Stated complaint: TOOTHACHE/FACE SWOLLEN Source: patient Mode of arrival: Ambulatory Limitations: No Limitations - History of Present Illness Initial comments: 61-year-old male presents to the ED complaining tooth ache with mild edema noted to the right lower jaw area. Patient states that he has appointment with [facility] to have tooth extracted extracted in January. Patient states that he came here today to have to get some antibiotic until he is able to get to [place] on Saturday to see the dentist. Patient denies any drooling , difficulty swallowing or difficulty opening his mouth. Patient is alert and oriented x3. Patient states pain is a 4 out of 10. MD complaint: tooth pain Onset/Timin -: days(s) Severity: moderate Severity scale (0 -10): 2 Consistency: intermittent Improves with: none Worsens with: none - Related Data Home Medications Medication Instructions Recorded Confirmed Last Taken Divalproex Dr [Depakote Dr] 500 mg PO QDAY 11/26/16 04/27/17 04/27/17 Previous Rx's Medication Instructions Recorded Last Taken Type amLODIPine 5 mg PO DAILY #90 tab 04/28/16 05/18/16 Rx Acetaminophen [Non-Aspirin Extra 500 mg PO Q6HR PRN #30 tablet 05/03/19 Unknown Rx Strength] Famotidine [Pepcid] 20 mg PO BID #10 tablet 05/03/19 Unknown Rx Dicyclomine [Bentyl] 20 mg PO QID PRN #20 tablet 04/23/21 Unknown Rx Ondansetron [Zofran ODT TAB] 4 mg PO Q6HR PRN #20 tab.rapdis 04/23/21 Unknown Rx Promethazine [Phenergan] 12.5 mg [place] Q6H PRN #7 supp.rect 04/23/21 Unknown Rx Sucralfate [Carafate] 1 gm PO Q12H #120 04/23/21 Unknown Rx Ondansetron [Zofran Odt] 4 mg PO Q8HR PRN #10 tab.rapdis 06/10/21 Unknown Rx Acetaminophen/Codeine [Tylenol 1 tab PO Q8H PRN #9 tab 08/16/21 Unknown Rx /Codeine # 3 tab] Acetaminophen [Acetaminophen TAB] 1,000 mg PO Q6HR PRN #30 tablet 10/12/21 Unknown Rx predniSONE [Deltasone] 60 mg PO QDAY #15 tab 10/12/21 Unknown Rx traMADoL [Ultram 50 MG tab] 50 mg PO Q6HR PRN #12 tablet 10/12/21 Unknown Rx Acetaminophen/Codeine [Tylenol 1 tab PO Q6H PRN 3 Days #12 tab 12/24/21 Unknown Rx /Codeine # 3 tab] Amoxicillin [Amoxicillin TAB] 875 mg PO BID 10 Days #20 tab 12/24/21 Unknown Rx Allergies Allergy/AdvReac Type Severity Reaction Status Date / Time No Known Allergies Allergy Verified 10/25/21 17:15 ED Dental HPI - General Chief complaint: Dental/Oral Stated complaint: TOOTHACHE/FACE SWOLLEN Source: patient Mode of arrival: Ambulatory Limitations: No Limitations - Related Data Home Medications Medication Instructions Recorded Confirmed Last Taken Divalproex Dr [Depakote Dr] 500 mg PO QDAY 11/26/16 04/27/17 04/27/17 Previous Rx's Medication Instructions Recorded Last Taken Type amLODIPine 5 mg PO DAILY #90 tab 04/28/16 05/18/16 Rx Acetaminophen [Non-Aspirin Extra 500 mg PO Q6HR PRN #30 tablet 05/03/19 Unknown Rx Strength] Famotidine [Pepcid] 20 mg PO BID #10 tablet 05/03/19 Unknown Rx Dicyclomine [Bentyl] 20 mg PO QID PRN #20 tablet 04/23/21 Unknown Rx Ondansetron [Zofran ODT TAB] 4 mg PO Q6HR PRN #20 tab.rapdis 04/23/21 Unknown Rx Promethazine [Phenergan] 12.5 mg [place] Q6H PRN #7 supp.rect 04/23/21 Unknown Rx Sucralfate [Carafate] 1 gm PO Q12H #120 04/23/21 Unknown Rx Ondansetron [Zofran Odt] 4 mg PO Q8HR PRN #10 tab.rapdis 06/10/21 Unknown Rx Acetaminophen/Codeine [Tylenol 1 tab PO Q8H PRN #9 tab 08/16/21 Unknown Rx /Codeine # 3 tab] Acetaminophen [Acetaminophen TAB] 1,000 mg PO Q6HR PRN #30 tablet 10/12/21 Unknown Rx predniSONE [Deltasone] 60 mg PO QDAY #15 tab 10/12/21 Unknown Rx traMADoL [Ultram 50 MG tab] 50 mg PO Q6HR PRN #12 tablet 10/12/21 Unknown Rx Acetaminophen/Codeine [Tylenol 1 tab PO Q6H PRN 3 Days #12 tab 12/24/21 Unknown Rx /Codeine # 3 tab] Amoxicillin [Amoxicillin TAB] 875 mg PO BID 10 Days #20 tab 12/24/21 Unknown Rx Allergies Allergy/AdvReac Type Severity Reaction Status Date / Time No Known Allergies Allergy Verified 10/25/21 17:15 ED Review of Systems ROS: Stated complaint: TOOTHACHE/FACE SWOLLEN Other details as noted in HPI Constitutional: denies: chills, fever Eyes: denies: eye pain, eye discharge, vision change ENT: denies: ear pain, throat pain Respiratory: denies: cough, shortness of breath, wheezing Cardiovascular: denies: chest pain, palpitations Endocrine: no symptoms reported Gastrointestinal: denies: abdominal pain, nausea, diarrhea Genitourinary: denies: urgency, dysuria Musculoskeletal: denies: back pain, joint swelling, arthralgia Skin: denies: rash, lesions Neurological: denies: headache, weakness, paresthesias Psychiatric: denies: anxiety, depression Hematological/Lymphatic: denies: easy bleeding, easy bruising ED Past Medical Hx - Past Medical History Previous Medical History?: Yes Hx Hypertension: Yes Hx Renal Disease: Yes (CKD) Hx Arthritis: Yes (HANDS,KNEES) Additional medical history: crohn's. Chronic Knee Pain. Gout - Surgical History Past Surgical History?: No - Social History Smoking Status: Unknown if ever smoked Substance Use Type: None - Medications Home Medications: Home Medications Medication Instructions Recorded Confirmed Last Taken Type amLODIPine 5 mg PO DAILY #90 tab 04/28/16 04/27/17 05/18/[address] [Deproycete Dr] 500 mg PO QDAY 11/26/16 04/27/17 04/27/17 History Acetaminophen [Non-Aspirin Extra 500 mg PO Q6HR PRN #30 tablet 05/03/19 Unknown Rx Strength] Famotidine [Pepcid] 20 mg PO BID #10 tablet 05/03/19 Unknown Rx Dicyclomine [Bentyl] 20 mg PO QID PRN #20 tablet 04/23/21 Unknown Rx Ondansetron [Zofran ODT TAB] 4 mg PO Q6HR PRN #20 tab.rapdis 04/23/21 Unknown Rx Promethazine [Phenergan] 12.5 mg [place] Q6H PRN #7 supp.rect 04/23/21 Unknown Rx Sucralfate [Carafate] 1 gm PO Q12H #120 04/23/21 Unknown Rx Ondansetron [Zofran Odt] 4 mg PO Q8HR PRN #10 tab.rapdis 06/10/21 Unknown Rx Acetaminophen/Codeine [Tylenol 1 tab PO Q8H PRN #9 tab 08/16/21 Unknown Rx /Codeine # 3 tab] Acetaminophen [Acetaminophen TAB] 1,000 mg PO Q6HR PRN #30 tablet 10/12/21 Unknown Rx predniSONE [Deltasone] 60 mg PO QDAY #15 tab 10/12/21 Unknown Rx traMADoL [Ultram 50 MG tab] 50 mg PO Q6HR PRN #12 tablet 10/12/21 Unknown Rx Acetaminophen/Codeine [Tylenol 1 tab PO Q6H PRN 3 Days #12 tab 12/24/21 Unknown Rx /Codeine # 3 tab] Amoxicillin [Amoxicillin TAB] 875 mg PO BID 10 Days #20 tab 12/24/21 Unknown Rx ED Physical Exam - General Limitations: No Limitations General appearance: alert, in no apparent distress - Head Head exam: Present: atraumatic, normocephalic - Eye Eye exam: Present: normal appearance - ENT ENT exam: Present: mucous membranes moist - Neck Neck exam: Present: normal inspection - Respiratory Respiratory exam: Present: normal lung sounds bilaterally. Absent: respiratory distress - Cardiovascular Cardiovascular Exam: Present: regular rate, normal rhythm. Absent: systolic murmur, diastolic murmur, rubs, gallop - GI/Abdominal GI/Abdominal exam: Present: soft, normal bowel sounds - Rectal Rectal exam: Present: deferred - Extremities Exam Extremities exam: Present: normal inspection - Back Exam Back exam: Present: normal inspection - Neurological Exam Neurological exam: Present: alert, oriented X3 - Psychiatric Psychiatric exam: Present: normal affect, normal mood - Skin Skin exam: Present: warm, dry, intact, normal color. Absent: rash ED Course Vital Signs 12/24/21 13:04 Temperature 98.7 F Pulse Rate 85 Respiratory 20 Rate Blood Pressure 181/114 [Right] O2 Sat by Pulse 99 Oximetry ED Medical Decision Making - Medical Decision Making 61-year-old male presents to the ED complaining tooth ache with mild edema noted to the right lower jaw area. Patient states that he has appointment with [facility] to have tooth extracted extracted in January. Patient states that he came here today to have to get some antibiotic until he is able to get to [place] on Saturday to see the dentist. Patient denies any drooling , difficulty swallowing or difficulty opening his mouth. Patient is alert and oriented x3. Patient states pain is a 4 out of 10. Physical examination patient has moderate swelling noted to the lower jaw area. Asymptomatic hypertension. Continue to take hypertension medication. Rechecked the patient is resting quietly quietly and comfortable and feeling better. I discussed the results of diagnostic study, my clinical impression and the plan for further treatment with the patient. Patient agrees with plan and discharge at this present time. All question addressed. I have given the patient instruction regarding a diagnosis ,expectation ,follow- up and return precaution. I explained to the patient that emergent condition may arise and to return to the ED for new worsen and any new persisting condition. I have explained the importance of following up with the primary care physician or referral physician listed below has instructed. The patient verbalized understanding of discharge instruction. Critical care attestation.: If time is entered above; I have spent that time in minutes in the direct care of this critically ill patient, excluding procedure time. ED Disposition Clinical Impression: Dental abscess Disposition: 01 HOME / SELF CARE / HOMELESS Is pt being admited?: No Does the pt Need Aspirin: No Condition: Stable Instructions: Dental Abscess, [id number] Additional Instructions: Take medication as prescribed Follow-up with [facility] in the a.m. Return to the ED for any worsening symptom Prescriptions: Amoxicillin [Amoxicillin TAB] 875 mg PO BID 10 Days #20 tab Acetaminophen/Codeine [Tylenol /Codeine # 3 tab] 1 tab PO Q6H PRN 3 Days #12 tab PRN Reason: Pain, Mild (1-3) Referrals: [facility] [Outside] - 3-5 Days [facility] [Outside] - 3-5 Days Time of Disposition: 15:27
== END 2021-12-24 16:00 | disposition home or self-care (01) ==
LOC: ED 11:56
DX: K04.7 Periapical abscess without sinus (principal); I10 Essential (primary) hypertension
CPT/HCPCS: 99282

== ENCOUNTER 2022-02-05 13:24 | Emergency (ER) | payer MEDICAID ==
[2022-02-05 13:40] VITALS: BP 130/90
[2022-02-05 16:23] LABS: Basophils % (Auto) 0.8 % (0.0-1.8); Eosinophils # (Auto) 0.1 K/mm3 (0.0-0.4); Hematocrit 39.9 % (35.5-45.6); Hemoglobin 13.3 gm/dl (11.8-15.2); Lymphocytes % (Auto) 16.6 % (13.4-35.0); Mean Corpuscular HGB Conc 33 % (32-34); Mean Corpuscular Volume 89 fl (84-94); Monocytes # (Auto) 0.6 K/mm3 (0.0-0.8); Monocytes % (Auto) 10.2 % (0.0-7.3); Red Blood Count 4.49 M/mm3 (3.65-5.03); Red Cell Distribution Width 15.3 % (13.2-15.2)
[2022-02-05 16:27] LABS: Platelet Count 165 K/mm3 (140-440)
== END 2022-02-06 00:11 | disposition left against medical advice (07) ==
LOC: ED 13:24
DX: M79.10 Myalgia, unspecified site (principal); Z53.21 Procedure and treatment not carried out due to patient leaving prior to being seen by health care provider; W19.XXXA Unspecified fall, initial encounter; Y93.89 Activity, other specified; Y92.89 Other specified places as the place of occurrence of the external cause; Y99.8 Other external cause status
CPT/HCPCS: 36415; 80053; 83690; 85025

== ENCOUNTER 2022-03-12 19:25 | Emergency (ER) | payer MEDICAID ==
[2022-03-12 22:59] LABS: Mucus,Urine FEW /HPF; WBC,Urine < 1.0 /HPF (0.0-6.0)
[2022-03-12 23:39] LABS: Color,Urine Yellow (Yellow)
[2022-03-12] MEDS ORDERED: MORPHINE 4 MG/1 ML INJ IM ONE (23:49)
[2022-03-12] MEDS ORDERED: ONDANSETRON 4 MG ODT TAB PO ONE (23:49)
--- NOTE | 2022-03-13 00:56 | Cat Scan Report ---
CT abdomen pelvis wo con INDICATION / CLINICAL INFORMATION: fall, abdomianl pain. TECHNIQUE: Axial CT imaging of abdomen and pelvis was obtained without contrast. Coronal and sagittal reformatte d imaging obtained and reviewed. All CT scans at this location are performed using CT dose reduction for ALARA by means of automated exposure control. COMPARISON: Recent CT abdomen/pelvis 10/26/2021 FINDINGS: CT abdomen without contrast demonstrates normal appearance of the liver, spleen, pancreas, kidneys, a nd adrenal glands. Gallbladder is collapsed. Abdominal aorta is normal. CT pelvis without contrast does not demonstrate any mass, free fluid, or focal inflammatory process. Urinary bladder is mostly collapsed. GI tract is unremarkable. Normal appendix is present in the righ t lower quadrant. Visualized lung bases are clear. No acute osseous abnormality. IMPRESSION: 1. No acute finding within the abdomen or pelvis. Signer Name: Abena Potts MD Signed: 03/13/2022 12:51 AM Workstation Name: [id number]
--- NOTE | 2022-03-13 01:49 | Emergency Department Report ---
ED Abdominal Pain HPI - General Chief Complaint: Abdominal Pain Stated Complaint: PAIN IN GROIN Time Seen by Provider: 03/12/22 23:48 Source: patient, EMS Mode of arrival: Wheelchair Limitations: No Limitations - History of Present Illness Initial Comments: 62 yo black male with pmh of HTN and Crohn's disease presents to ed for evaluation of abdominal pain. He states that he fell down the stairs while working today and landed on the left side of his stomach and has had LLQ pain since then. He denies n/v, fever, dysuria, and penile discharge. MD Complaint: abdominal pain -: Sudden, This evening Location: LLQ Radiation: none Migration to: no migration Severity scale (0 -10): 10 Quality: aching Consistency: constant Worsens With: movement Associated Symptoms: denies: nausea, vomiting, fever, chills, dysuria, hematemesis, hematochezia, melena, hematuria, anorexia, syncope - Related Data Home Medications Medication Instructions Recorded Confirmed Last Taken Divalproex [Anastasia Clinton] 500 mg PO QDAY 11/26/16 04/27/17 04/27/17 Previous Rx's Medication Instructions Recorded Last Taken Type amLODIPine 5 mg PO DAILY #90 tab 04/28/16 05/18/16 Rx Acetaminophen [Non-Aspirin Extra 500 mg PO Q6HR PRN #30 tablet 05/03/19 Unknown Rx Strength] Famotidine [Pepcid] 20 mg PO BID #10 tablet 05/03/19 Unknown Rx Dicyclomine [Bentyl] 20 mg PO QID PRN #20 tablet 04/23/21 Unknown Rx Ondansetron [Zofran ODT TAB] 4 mg PO Q6HR PRN #20 tab.rapdis 04/23/21 Unknown Rx Promethazine [Phenergan] 12.5 mg [place] Q6H PRN #7 supp.rect 04/23/21 Unknown Rx Sucralfate [Carafate] 1 gm PO Q12H #120 04/23/21 Unknown Rx Ondansetron [Zofran Odt] 4 mg PO Q8HR PRN #10 tab.rapdis 06/10/21 Unknown Rx Acetaminophen/Codeine [Tylenol 1 tab PO Q8H PRN #9 tab 08/16/21 Unknown Rx /Codeine # 3 tab] Acetaminophen [Acetaminophen TAB] 1,000 mg PO Q6HR PRN #30 tablet 10/12/21 Unknown Rx predniSONE [Deltasone] 60 mg PO QDAY #15 tab 10/12/21 Unknown Rx traMADoL [Ultram 50 MG tab] 50 mg PO Q6HR PRN #12 tablet 10/12/21 Unknown Rx Acetaminophen/Codeine [Tylenol 1 tab PO Q6H PRN 3 Days #12 tab 12/24/21 Unknown Rx /Codeine # 3 tab] Amoxicillin [Amoxicillin TAB] 875 mg PO BID 10 Days #20 tab 12/24/21 Unknown Rx Acetaminophen/Codeine [Tylenol 1 tab PO Q6H PRN #12 tab 03/13/22 Unknown Rx /Codeine # 3 tab] Allergies Allergy/AdvReac Type Severity Reaction Status Date / Time No Known Allergies Allergy Verified 02/05/22 13:32 ED Review of Systems ROS: Stated complaint: PAIN IN GROIN Other details as noted in HPI Comment: All other systems reviewed and negative Constitutional: denies: chills, fever Respiratory: denies: shortness of breath Cardiovascular: denies: chest pain Gastrointestinal: abdominal pain. denies: nausea, vomiting Musculoskeletal: denies: back pain Neurological: denies: headache ED Past Medical Hx - Past Medical History Hx Hypertension: Yes Hx Renal Disease: Yes (CKD) Hx Arthritis: Yes (HANDS,KNEES) Additional medical history: crohn's. Chronic Knee Pain. Gout - Social History Smoking Status: Unknown if ever smoked Substance Use Type: None - Medications Home Medications: Home Medications Medication Instructions Recorded Confirmed Last Taken Type amLODIPine 5 mg PO DAILY #90 tab 04/28/16 04/27/17 05/18/16 Rx Divalproex [Anastasia Clinton] 500 mg PO QDAY 11/26/16 04/27/17 04/27/17 History Acetaminophen [Non-Aspirin Extra 500 mg PO Q6HR PRN #30 tablet 05/03/19 Unknown Rx Strength] Famotidine [Pepcid] 20 mg PO BID #10 tablet 05/03/19 Unknown Rx Dicyclomine [Bentyl] 20 mg PO QID PRN #20 tablet 04/23/21 Unknown Rx Ondansetron [Zofran ODT TAB] 4 mg PO Q6HR PRN #20 tab.rapdis 04/23/21 Unknown Rx Promethazine [Phenergan] 12.5 mg [place] Q6H PRN #7 supp.rect 04/23/21 Unknown Rx Sucralfate [Carafate] 1 gm PO Q12H #120 04/23/21 Unknown Rx Ondansetron [Zofran Odt] 4 mg PO Q8HR PRN #10 tab.rapdis 06/10/21 Unknown Rx Acetaminophen/Codeine [Tylenol 1 tab PO Q8H PRN #9 tab 08/16/21 Unknown Rx /Codeine # 3 tab] Acetaminophen [Acetaminophen TAB] 1,000 mg PO Q6HR PRN #30 tablet 10/12/21 Unknown Rx predniSONE [Deltasone] 60 mg PO QDAY #15 tab 10/12/21 Unknown Rx traMADoL [Ultram 50 MG tab] 50 mg PO Q6HR PRN #12 tablet 10/12/21 Unknown Rx Acetaminophen/Codeine [Tylenol 1 tab PO Q6H PRN 3 Days #12 tab 12/24/21 Unknown Rx /Codeine # 3 tab] Amoxicillin [Amoxicillin TAB] 875 mg PO BID 10 Days #20 tab 12/24/21 Unknown Rx Acetaminophen/Codeine [Tylenol 1 tab PO Q6H PRN #12 tab 03/13/22 Unknown Rx /Codeine # 3 tab] ED Physical Exam - General Limitations: No Limitations General appearance: alert, in no apparent distress - Head Head exam: Present: atraumatic, normocephalic - Eye Eye exam: Present: normal appearance. Absent: conjunctival injection - Neck Neck exam: Present: normal inspection, full ROM. Absent: tenderness - Respiratory Respiratory exam: Present: normal lung sounds bilaterally. Absent: respiratory distress, chest wall tenderness - Cardiovascular Cardiovascular Exam: Present: tachycardia - GI/Abdominal GI/Abdominal exam: Present: soft, tenderness (LLQ), guarding, rebound, normal bowel sounds. Absent: distended - Extremities Exam Extremities exam: Present: normal inspection, normal capillary refill - Back Exam Back exam: Present: normal inspection. Absent: CVA tenderness (R), CVA tenderness (L) - Neurological Exam Neurological exam: Present: alert, oriented X3, normal gait - Psychiatric Psychiatric exam: Present: normal affect, normal mood - Skin Skin exam: Present: warm, dry, intact, normal color, ecchymosis (to LLQ) - Expanded Skin Exam Expanded 1 - ecchymosis ED Course Vital Signs 03/12/22 03/12/22 03/12/22 19:32 23:35 23:39 Temperature 99.3 F 98.4 F Pulse Rate 108 H 87 Respiratory 16 19 20 Rate Blood Pressure 150/103 144/92 [Right] O2 Sat by Pulse 98 100 100 Oximetry 03/13/22 03/13/22 00:40 01:00 Temperature 98.4 F Pulse Rate 79 Respiratory 16 18 Rate Blood Pressure 141/82 [Right] O2 Sat by Pulse 100 Oximetry ED Medical Decision Making - Radiology Data Radiology results: report reviewed, image reviewed CT abdomen and pelvis without contrast: FINDINGS: CT abdomen without contrast demonstrates normal appearance of the liver, spleen, pancreas, kidneys, and adrenal glands. Gallbladder is collapsed. Abdominal aorta is normal. CT pelvis without contrast does not demonstrate any mass, free fluid, or focal inflammatory process. Urinary bladder is mostly collapsed. GI tract is unremarkable. Normal appendix is present in the right lower quadrant. Visualized lung bases are clear. No acute osseous abnormality. IMPRESSION: 1. No acute finding within the abdomen or pelvis. - Medical Decision Making 62 yo black male with pmh of HTN and Crohn's disease presents to ed for evaluation of abdominal pain. He states that he fell down the stairs while working today and landed on the left side of his stomach and has had LLQ pain since then. He denies n/v, fever, dysuria, and penile discharge. Echymosis noted to LLQ. CT abdomen and pelvis without contrast without acute abnormalities. Patient will be discharged home with tylenol 3 and advised to follow up with his pcp for further evaluation and management and return to ed as needed. He verbalized understanding of and agreement with plan of care. Critical care attestation.: If time is entered above; I have spent that time in minutes in the direct care of this critically ill patient, excluding procedure time. ED Disposition Clinical Impression: Abdominal pain Qualifiers: Abdominal location: left lower quadrant Qualified Code(s): R10.32 - Left lower quadrant pain Disposition: HOME / SELF CARE / HOMELESS Is pt being admited?: No Does the pt Need Aspirin: No Condition: Stable Instructions: Abdominal Pain, Adult, [id number] Additional Instructions: Take medications as prescribed. Follow-up with your primary care provider if no improvement or worsening symptoms. Return to the emergency department as needed. Prescriptions: Acetaminophen/Codeine [Tylenol /Codeine # 3 tab] 1 tab PO Q6H PRN #12 tab PRN Reason: Pain, Moderate (4-6) Referrals: [facility] MD ANDIE [Primary Care Provider] - 3-5 Days Time of Disposition: 01:49
[2022-03-13 02:09] VITALS: BP 141/82
== END 2022-03-13 02:10 | disposition home or self-care (01) ==
LOC: ED 19:25
DX: R10.32 Left lower quadrant pain (principal); I10 Essential (primary) hypertension
CPT/HCPCS: 74176; 81001; 96372; 99284; J2270; J3490; Q0162